=== PATIENT | female | born 1940 | race Caucasian/White ===

== ENCOUNTER 2017-11-01 06:14 | Inpatient (IN) | payer OTHER, BC ==
[2017-11-01] MEDS ORDERED: THROMBIN (BOVINE) 5,000 UNIT VIAL TP ONE (07:25)
[2017-11-01] MEDS ORDERED: HEPARIN NA (PORCINE) 5,000 UNITS/ML 1ML VIAL ONE (07:25)
[2017-11-01] MEDS ORDERED: BENZOIN/ALOE VERA/STORAX/TOLU 58 ML BOTTLE ONE (07:25)
[2017-11-01] MEDS ORDERED: PROPOFOL 20 ML ONE ×6 (07:38→11:52)
[2017-11-01] MEDS ORDERED: SUCCINYLCHOLINE CHLORIDE 200 MG/10 ML VIAL ONE (07:38)
[2017-11-01] MEDS ORDERED: fentaNYL CITRATE 250 MCG/5 ML VIAL ONE (07:38)
[2017-11-01] MEDS ORDERED: MIDAZOLAM HCL 2 MG/2 ML SINGLE DOSE VIAL ONE ×4 (07:39)
[2017-11-01] MEDS ORDERED: SEVOFLURANE 250 ML BTL ONE (07:57)
[2017-11-01] MEDS ORDERED: VANCOMYCIN 1,000 MG VIAL (RESTRICTED TO ID ONLY) ONE ×2 (09:17→09:31)
[2017-11-01] MEDS ORDERED: VANCOMYCIN 1,000 MG VIAL (RESTRICTED TO ID ONLY) IVPB ONE (09:20)
[2017-11-01] MEDS ORDERED: ceFAZolin SODIUM 1 GM VIAL ONE ×2 (09:31→15:21)
[2017-11-01] MEDS ORDERED: LIDOCAINE HCL/PF 2% SDV 5ML VIAL ONE (09:31)
[2017-11-01] MEDS ORDERED: DEXAMETHASONE SOD PHOSPHATE 4 MG/1 ML VIAL ONE ×2 (09:31→11:21)
[2017-11-01] MEDS ORDERED: ONDANSETRON 4 MG/2 ML VIAL ONE ×3 (09:31→14:35)
[2017-11-01] MEDS ORDERED: GLYCOPYRROLATE 0.2 MG/1 ML VIAL ONE ×2 (09:33→09:38)
[2017-11-01] MEDS ORDERED: ePHEDrine SULFATE 50 MG/1 ML AMPULE ONE (09:40)
[2017-11-01] MEDS ORDERED: ceFAZolin SODIUM 1 GM VIAL IVPB ONE (09:40)
[2017-11-01] MEDS ORDERED: TRANEXAMIC ACID 1000 MG/10 ML VIAL ONE (10:02)
[2017-11-01] MEDS ORDERED: FLUMAZENIL 0.5 MG/5 ML VIAL ONE (12:28)
--- NOTE | 2017-11-01 12:33 | PN ---
Progress Note (short form) - Note Progress Note: 77F s/p C3-C4, C4-C5, C5-C6 discectomies; C4, C5 corpectomies; C3, C6 partial corpectomies; C3-C6 anterior cervical decompression and instrumented fusion POD #0. -Admit to ICU x 24 hrs. for airway observation; OK to downgrade to floor 2017 if airway stable. -In case of emergency, remove anterior cervical spine dressing and pull out running suture. -Maintain head of bed >45 degrees. -Pain control: oral meds predominantly; NO CHIEF DISPATCHER SERVICE. -DVT PPx: -Mechanical only: GREG's, SCD's. -Post-op Ancef x 2 doses. -f/u AM labs. -Incentive spirometry. -PT/OT/Rehab, OOB. -WBAT B/L UE & LE. -d/c Rushing catheter in AM; f/u TOV. -Keep dressing clean & dry. -No heavy lifting, bending or twisting. -Puree diet; advance as tolerated. -B/L UE & LE NV checks. -Care per ICU & primary medical hospitalist teams. -Discharge planning: f/u [facility] [place] office 11/11/2017; call for appointment; . Gustavo Velasco MD (Orthopaedic Surgery).
[2017-11-01] MEDS ORDERED: ONDANSETRON 4 MG/2 ML VIAL IVPUSH PRN ×2 (12:34→12:47)
[2017-11-01] MEDS ORDERED: traMADol HCL 50 MG TABLET PO PRN (12:34)
[2017-11-01] MEDS ORDERED: oxyCODONE HCL 5 MG TABLET PO PRN ×2 (12:34)
[2017-11-01] MEDS ORDERED: LACTATED RINGERS SOLUTION 1,000 ML IV SCH ×2 (12:45→13:00)
[2017-11-01] MEDS ORDERED: HYDROmorphone *PCA* 10MG/50ML DISP.SYRIN PCA SCH (13:00)
[2017-11-01] MEDS ORDERED: HYDROmorphone *PCA* 10MG/50ML DISP.SYRIN PCA ONE (13:20)
--- NOTE | 2017-11-01 13:22 | OP ---
Operative Note - Note: Operative Date: 11/01/17 Pre-Operative Diagnosis: Cervical spinal stenosis. Progressive neurological decline. Cervical myelopathy. Cervical radiculopathy Operation: 1. C3-C4, C4-C5, C5-C6 discectomies. 2. C4, C5 corpectomies. 3. C3 , C6 partial corpectomies. 4. C3-C6 anterior cervical decompression and instrumented fusion. 5. Bone autograft. 6. Bone allograft Post-Operative Diagnosis: Same as Pre-op Surgeon: Gustavo Velasco Cra Officer: Demetrio Velasco Anesthesiologist/JUKEBOX ROUTE DRIVER: Deangelo Ibarra Specimens Removed: C3-4, C4-5, C5-6 discs Estimated Blood Loss (mls): 850 Blood Volume Replaced (mls): 375 (Cell Saver) Fluid Volume Replaced (mls): 2,000 Operative Report Dictated: Yes
[2017-11-01] MEDS ORDERED: oxyCODONE HCL 5 MG TABLET ONE (14:35)
[2017-11-01] MEDS ORDERED: ACETAMINOPHEN INJECTION 100 ML IVPB ONE (14:35)
[2017-11-01] MEDS ORDERED: ACETAMINOPHEN 1000 MG/100 ML VIAL (NON FORMULARY) IVPB ONE (15:00)
[2017-11-01] MEDS: ACETAMINOPHEN 325 MG TABLET (FP) PO SCH ×3 (15:20→21:11)
[2017-11-01] MEDS ORDERED: CEFAZOLIN 1 GM in DEXTROSE 5%-WATER - 50 ML IVPB SCH ×2 (16:00→23:30)
--- NOTE | 2017-11-01 19:57 | CONSULT ---
Consultation: REQUESTING PROVIDER: CONSULT REQUEST: We have been asked to medically evaluate this patient for ( intensive care). HISTORY OF PRESENT ILLNESS: 77 y/o F with PMH of htn, hld, dm, cervical spine stenosis and cervical rediculopathy was admitted by spine surgeon for surgery. Patient states that she had tingling and pain in b/l upper limbs and pain in b/ l lower limbs from 3-4 months which was progressing and getting worse. Denies numbness, weakness in b/l upper limb and lower limb. States she has bladder and bowel control. Denies any fall. States she walks without cane and walker. Reports she is feeling better after surgery, pain has improved, Denies shortness of breath, denies. Reports some difficulty in swallowing but is able to swallow meds with apple sauce and is on puree diet. REVIEW OF SYSTEMS: CONSTITUTIONAL: Absent: fever, chills, diaphoresis, generalized weakness, HEENT: Absent: rhinorrhea, nasal congestion, throat pain, throat swelling, CARDIOVASCULAR: Absent: chest pain, syncope, palpitations, irregular heart rate, RESPIRATORY: Absent: cough, shortness of breath, dyspnea with exertion, orthopnea, wheezing, stridor, hemoptysis GASTROINTESTINAL: Absent: abdominal pain, abdominal distension, nausea, vomiting, diarrhea, GENITOURINARY: Absent: dysuria, frequency, urgency, hesitancy, hematuria, flank pain, genital pain MUSCULOSKELETAL: Absent: myalgia, arthralgia, joint swelling, back pain, neck pain Absent: headache, focal weakness or paresthesias, dizziness, , mental status changes, bladder or bowel incontinence PHYSICAL EXAMINATION Vital Signs - 24 hr 11/01/17 11/01/17 11/01/17 07:07 12:42 12:55 Temperature 98.3 F 97.6 F Pulse Rate 57 L 86 81 Respiratory 16 14 18 Rate Blood Pressure 144/75 146/68 146/65 O2 Sat by Pulse 97 96 96 Oximetry (%) 11/01/17 11/01/17 11/01/17 13:10 13:25 13:40 Temperature Pulse Rate 82 82 86 Respiratory 18 17 16 Rate Blood Pressure 141/63 138/61 137/65 O2 Sat by Pulse 96 97 98 Oximetry (%) 11/01/17 11/01/17 11/01/17 13:55 14:10 14:25 Temperature Pulse Rate 81 80 84 Respiratory 15 14 16 Rate Blood Pressure 132/55 136/52 132/68 O2 Sat by Pulse 98 98 99 Oximetry (%) 11/01/17 11/01/17 11/01/17 14:40 14:55 15:10 Temperature Pulse Rate 101 H 88 97 H Respiratory 20 16 20 Rate Blood Pressure 150/77 137/62 128/69 O2 Sat by Pulse 98 98 96 Oximetry (%) 11/01/17 11/01/17 11/01/17 15:25 15:40 15:55 Temperature 97.5 F L Pulse Rate 73 100 H 95 H Respiratory 16 18 18 Rate Blood Pressure 134/63 134/69 128/68 O2 Sat by Pulse 99 97 Oximetry (%) 11/01/17 11/01/17 11/01/17 16:20 16:30 16:38 Temperature 99.2 F Pulse Rate 97 H Respiratory 21 Rate Blood Pressure 151/83 O2 Sat by Pulse 97 97 Oximetry (%) 11/01/17 11/01/17 18:00 18:15 Temperature 99.5 F Pulse Rate 90 Respiratory 16 Rate Blood Pressure 131/66 O2 Sat by Pulse 97 Oximetry (%) GENERAL: Awake, alert, and fully oriented, in no acute distress. HEAD: Normal with no signs of trauma. EYES: Pupils equal, round and reactive to light, EARS, NOSE, THROAT: Ears normal, nares patent, oropharynx clear without exudates. Moist mucous membranes. NECK: dressing present in anterior part of neck, no sokage LUNGS: Breath sounds equal, clear to auscultation bilaterally. No wheezes, and no crackles. No accessory muscle use. HEART: Regular rate and rhythm, normal S1 and S2 ABDOMEN: Soft, nontender, not distended, hypoactive bowel sounds, no guarding, MUSCULOSKELETAL: Normal range of motion at all joints. UPPER EXTREMITIES: 2+ pulses, warm, well-perfused. No cyanosis. No clubbing. No peripheral edema. LOWER EXTREMITIES: warm, well-perfused. No calf tenderness. No peripheral edema. NEUROLOGICAL: Cranial nerves II-XII intact. horse voice. Laboratory Results - last 24 hr 11/01/17 11/01/17 11/01/17 06:37 06:50 07:15 POC Glucometer 130 Blood Type AB POSITIVE AB POSITIVE Antibody Screen Negative 11/01/17 15:28 POC Glucometer 211 Blood Type Antibody Screen Active Medications Generic Name Dose Route Start Last Admin Trade Name Freq PRN Reason Stop Dose Admin Acetaminophen 650 mg 11/01/17 21:00 Tylenol - PO Q6H [facility] Buspirone HCl 15 mg 11/01/17 22:00 Buspar - PO BID [facility] Dexamethasone Sodium Phosphate 10 mg 11/02/17 06:00 Decadron Injection - IVPUSH 11/02/17 06:01 ONCE ONE Lactated Ringer's 1,000 mls @ 125 mls/hr 11/01/17 13:00 11/01/17 15:16 Lactated Ringers Solution IV 125 mls/hr ASDIR NGA Administration Cefazolin Sodium 1 gm/ 50 mls @ 100 mls/hr 11/01/17 23:30 Dextrose IVPB 11/01/17 23:59 Q8H [facility] Metoprolol Succinate 50 mg 11/02/17 10:00 Toprol Xl - PO DAILY [facility] Ondansetron HCl 4 mg 11/01/17 12:34 11/01/17 15:17 Zofran Injection IVPUSH 4 mg Q6H PRN Administration NAUSEA AND/OR VOMITING Ondansetron HCl 4 mg 11/01/17 12:47 Zofran Injection IVPUSH Q6H PRN NAUSEA AND/OR VOMITING Oxycodone HCl 5 mg 11/01/17 12:34 11/01/17 14:46 Roxicodone - PO 5 mg Q4H PRN Administration PAIN LEVEL 6-10 Oxycodone HCl 10 mg 11/01/17 12:34 Roxicodone - PO Q4H PRN PAIN LEVEL 7 - 10 Sertraline HCl 50 mg 11/02/17 10:00 Zoloft - PO DAILY [facility] Tramadol HCl 50 mg 11/01/17 12:34 Ultram - PO Q6H PRN PAIN LEVEL 4 - 6 ASSESSMENT/PLAN: 1) Cervical spinal stenosis. Cervical myelopathy. Cervical radiculopathy 2) HTN 3) HLD 4) DM 5) s/p s/p C3-C4, C4-C5, C5-C6 discectomies. 2. C4, C5 corpectomies. 3. C3, C6 partial corpectomies. 4. C3-C6 anterior cervical decompression and instrumented fusion. 5. Bone autograft. 6. Bone allograft Plan head end elevated 45 degree early ambulation. pain control with trmadol 50mg and oxycodone 10mg on iV fluid LR 125ml/hr OOB with speech language assistant. scd b/l on puree diet Monitor vitals monitor intake and output. continue home med toprol xl 50 daily on antibiotic cefazoline q8h blood glucose monitoring. Novolog sliding scale. Dispo: We will continue to follow the patient. Thank you for this consultative opportunity. Visit type - Emergency Visit Emergency Visit: Yes ED Registration Date: 11/01/17 Care time: The patient presented to the Emergency Department on the above date and was hospitalized for further evaluation of their emergent condition. - New Patient This patient is new to me today: Yes Date on this admission: 11/01/17 - Critical Care Critical Care patient: Yes Total Critical Care Time (in minutes): 45 Critical Care Statement: The care of this patient involved high complexity decision making to prevent further life threatening deterioration of the patient 's condition and/or to evaluate & treat vital organ system(s) failure or risk of failure.
[2017-11-01] MEDS ORDERED: PT OWN MED DRAWER 7, Y5N ONE (21:08)
[2017-11-01] MEDS: busPIRone HCL 5 MG TABLET PO SCH (22:06)
[2017-11-01] MEDS: INSULIN SLIDING SCALE (NOVOLOG) 1 VIAL SQ SCH (22:08)
[2017-11-02] MEDS ORDERED: DEXTROSE 5%-WATER - 50 ML IVPB ONE (00:19)
[2017-11-02] MEDS ORDERED: ceFAZolin SODIUM 1 GM VIAL ONE (00:19)
[2017-11-02] MEDS: ACETAMINOPHEN 325 MG TABLET (FP) PO SCH ×4 (02:53→21:11)
[2017-11-02] MEDS ORDERED: HEMOQUE TEST 1 EACH EACH ONE (05:36)
[2017-11-02] MEDS ORDERED: DEXAMETHASONE SOD PHOSPHATE 10 MG/1 ML VIAL IVPUSH ONE (06:00)
[2017-11-02] MEDS: INSULIN SLIDING SCALE (NOVOLOG) 1 VIAL SQ SCH ×4 (06:17→21:16)
[2017-11-02 06:25] LABS: HEMATOCRIT 38.5 % (32.4-45.2); HEMOGLOBIN 12.8 GM/dL (10.7-15.3); MCHC 33.1 g/dl (32.0-36.0); MEAN CELL VOLUME 93.7 fl (80-96); MEAN PLT VOLUME 9.4 fl (7.5-11.1); PLATELET COUNT 158 K/MM3 (134-434); RBC 4.11 M/mm3 (3.60-5.2); RDW 13.1 % (11.6-15.6); WHITE BLOOD COUNT 11.9 K/mm3 (4.0-10.0)
--- NOTE | 2017-11-02 06:40 | OP ---
DATE OF OPERATION: 11/01/2017 SURGEON: Gustavo Velasco MD CLIENT SERVICE COORDINATOR: Demetrio Velasco MD PREOPERATIVE DIAGNOSES: Vertebral canal stenosis, C3-4, C4-5, C5-6 with sigmoid kyphosis at this level and associated stenosis and cervical spondylogenic myelopathy. POSTOPERATIVE DIAGNOSES: Vertebral canal stenosis, C3-4, C4-5, C5-6 with sigmoid kyphosis at this level and associated stenosis and cervical spondylogenic myelopathy. OPERATION PERFORMED: 1. Anterior cervical approach. 2. Full corpectomy, C4-5. 3. Partial corpectomy, C3 and partial corpectomy, C6. 4. Anterior arthrodesis, C3 through C7. 5. Anterior cage placement, C3 to C7. 6. Anterior plating, C3 to C7; plate was a 3-level Simplicity plate. Screws 12 mm. ANESTHESIA: General. ANTIBIOTICS GIVEN: Kefzol 2 g and vancomycin 1 g preoperative. Decadron given and intraoperative Decadron given as well. Patient correctly identified, brought into the operating room, placed supine on the operating room table. Glidescope intubation utilized. Preoperative neuromonitoring readings revealed changes in the left lower extremity. Positioning of the patient in extension brought about no change. We elected then to continue. Timeout was called. Imaging was available for intraoperative evaluation. The skin was cleansed with Betadine scrub solution and wiped off with alcohol. DuraPrep applied. A window drape applied. Intraoperative x-ray and neuromonitoring utilized. Oblique incision made just above the cricothyroid interval on the right-hand side. The dissection was taken. The platysma was transected. The investing layer of fascia was opened to expose the neck appropriately. The retraction was from medial to lateral. The entire field was exposed nicely. Paterson pins were placed in the body of C3 and the body of C6. A gentle distraction applied, but this was utilized more for up-down retraction. The longus coli was dissected off the vertebral bodies anteriorly. The teeth of the medial and lateral retractors were placed in the body of the muscle and belly itself. Once this had been performed, retraction was achieved. The traction had to be released and then once again reapplied. The reason being that there was activity noted on the appropriate laryngeal nerves as monitored by the ET tube. Retraction was backed off appropriately until this was quiet. An annulectomy was performed using Bovie to cut the annulus. The disk material was scooped out of each level of disk; that would be C3-4, C4-5, and C5-6. The vertebral bodies noted. A longitudinal gutter was cut into each area on the left side and the right-hand side broaching these down to endplate. Copious bleeding was encountered as we cut into the vertebral bodies. Cell Saver was utilized. Ultimately, Cell Saver gave back 250 mL of blood. Approximately 400 mL of blood was spilt. Once the bulk of the bone was removed from C4 and C5, a round-tip, jarred-smooth gael was utilized to trim the endplates flat. That is the lower endplate of C3 and the upper endplate of C6. They were parallel to each other. The tabletop, that is the anterior surface of the vertebral bodies, was flattened as well using the gael. Once this had been achieved, burring enabled complete de-bulking of the bone on the posterior longitudinal ligament. This was then resected using Kerrisons. We removed the entire posterior longitudinal ligament to expose a completely bulging theca from C3 right down to C6. A partial corpectomy of C3 was performed, undercutting to ensure that the deep space was opened as it was performed at C6 as well. FloSeal and Gelfoam were utilized to help control bleeding. Bleeding from the bone bed was copious, from the epidural plexus present but minimal. This was all controlled by the time we placed the cage. The interspace was measured with appropriate stacked osteotomes to give the exact degree of height of the cage. The cage was cut and slightly oversized. This was packed with bone graft from the bone harvested and some allograft putty mixed with this. This was tamped solidly into position, and the distraction device was then removed. The distraction pin holes were filled with bone wax, and a [id number] Simplicity plate applied to the anterior bodies with 12-mm self-tapping screws inserted into bone bed. Following the insertion of these, an x-ray was taken, showing the perfect seating of the implants. The cage was solidly seated. The wounds were thoroughly lavaged and closed as follows: Investing layer of fascia 3-0 Vicryl, subcutaneous 3-0 Vicryl, skin 3-0 Monocryl with Steri- Strips. It must be noted that the locking devices of the screws were utilized to lock the screws in position to prevent any back-out. No complications excepting for the fluctuations of the neuromonitoring motor-evoked potentials. SSEPs remained stable throughout. MD SAWYER Tavares/[id number] MTDD
[2017-11-02 07:39] LABS: BLOOD UREA NITROGEN 14 mg/dL (7-18); CHLORIDE 101 mmol/L (98-107); CO2 28 mmol/L (21-32); CREATININE 0.7 mg/dL (0.55-1.02); GLUCOSE,RANDOM 160 mg/dL (74-106); POTASSIUM 4.4 mmol/L (3.5-5.1); SODIUM 139 mmol/L (136-145)
[2017-11-02 07:40] LABS: ANION GAP 10 (8-16); CALCIUM 8.2 mg/dL (8.5-10.1)
--- NOTE | 2017-11-02 08:12 | PN ---
Progress Note, Physician Chief Complaint: Pt. sitting up in bed. Everything is fine with GA and pain controlled, however she has a piece of a pill stuck in her throat. She is currently trying to clear with water. - Current Medication List Current Medications: Active Medications Acetaminophen (Tylenol -) 650 mg PO Q6H [facility] Last Admin: 11/02/17 02:53 Dose: 650 mg Buspirone HCl (Buspar -) 15 mg PO BID [facility] Last Admin: 11/01/17 22:06 Dose: 15 mg Lactated Ringer's (Lactated Ringers Solution) 1,000 mls @ 125 mls/hr IV ASDIR [facility] Last Admin: 11/01/17 15:16 Dose: 125 mls/hr Insulin Aspart (Novolog Vial Sliding Scale -) 1 vial SQ ACHS [facility]; Protocol Last Admin: 11/02/17 06:17 Dose: 2 units Metoprolol Succinate (Toprol Xl -) 50 mg PO DAILY [facility] Ondansetron HCl (Zofran Injection) 4 mg IVPUSH Q6H PRN PRN Reason: NAUSEA AND/OR VOMITING Last Admin: 11/01/17 15:17 Dose: 4 mg Ondansetron HCl (Zofran Injection) 4 mg IVPUSH Q6H PRN PRN Reason: NAUSEA AND/OR VOMITING Oxycodone HCl (Roxicodone -) 5 mg PO Q4H PRN PRN Reason: PAIN LEVEL 6-10 Last Admin: 11/01/17 14:46 Dose: 5 mg Oxycodone HCl (Roxicodone -) 10 mg PO Q4H PRN PRN Reason: PAIN LEVEL 7 - 10 Sertraline HCl (Zoloft -) 50 mg PO DAILY [facility] Tramadol HCl (Ultram -) 50 mg PO Q6H PRN PRN Reason: PAIN LEVEL 4 - 6 - Objective Vital Signs: Vital Signs Temperature 99.1 F 11/02/17 02:00 Pulse Rate 64 11/02/17 06:00 Respiratory Rate 17 11/02/17 06:00 Blood Pressure 120/50 11/02/17 06:00 O2 Sat by Pulse Oximetry (%) 98 11/01/17 21:00 Constitutional: Yes: Well Nourished, No Distress, Calm Musculoskeletal: Yes: WNL Neurological: Yes: WNL, Alert, Oriented Labs: CBC, BMP 11/02/17 05:30 11/02/17 05:30 Assessment/Plan POD#1 s/p C3-6 corpectomy under GA. Has a pill stuck in her throat. Will be referred to GI if necessary. D/C TOOLING SPECIALIST
[2017-11-02] MEDS: busPIRone HCL 5 MG TABLET PO SCH ×2 (09:32→21:50)
--- NOTE | 2017-11-02 09:49 | PN ---
Physical Exam: SUBJECTIVE: Patient seen and examined in ICU. She denies pain to throat, head, dizziness. States she has some discomfort with swallowing. Has belching, no flatulence or bm OBJECTIVE: Vital Signs Period Temp Pulse Resp BP Sys/Beckwith Pulse Ox Last 24 Hr 97.5 F-99.5 F 64-123 14-21 117-151/47-83 96-99 PE Neuro: alert, awake, cn 2-12intact HEENT: anterior neck dressing cdi Pulm: scattered cackles, otherwise clear CV: s1 s2 tachycardia no mrg Abd: s nt nd + bs Ext: warm, no le edema Laboratory Results - last 24 hr 11/01/17 11/01/17 11/02/17 15:28 22:07 05:30 WBC 11.9 H RBC 4.11 Hgb 12.8 Hct 38.5 MCV 93.7 MCH 31.0 MCHC 33.1 RDW 13.1 Plt Count 158 MPV 9.4 Sodium Potassium Chloride Carbon Dioxide Anion Gap BUN Creatinine Creat Clearance w eGFR POC Glucometer [phone] Random Glucose Calcium 11/02/17 11/02/17 05:30 05:43 WBC RBC Hgb Hct MCV MCH MCHC RDW Plt Count MPV Sodium 139 Potassium 4.4 Chloride 101 Carbon Dioxide 28 Anion Gap 10 BUN 14 Creatinine 0.7 Creat Clearance w eGFR > 60 POC Glucometer [phone] Random Glucose 160 H Calcium 8.2 L Active Medications Generic Name Dose Route Start Last Admin Trade Name Freq PRN Reason Stop Dose Admin Acetaminophen 650 mg 11/01/17 21:00 11/02/17 09:32 Tylenol - PO 650 mg Q6H NGA Administration Buspirone HCl 15 mg 11/01/17 22:00 11/02/17 09:32 Buspar - PO 15 mg BID NGA Administration Lactated Ringer's 1,000 mls @ 125 mls/hr 11/01/17 13:00 11/01/17 15:16 Lactated Ringers Solution IV 125 mls/hr ASDIR NGA Administration Insulin Aspart 1 vial 11/01/17 22:00 11/02/17 06:17 Novolog Vial Sliding Scale - SQ 2 units ACHS NGA Administration Protocol Metoprolol Succinate 50 mg 11/02/17 10:00 11/02/17 09:32 Toprol Xl - PO 50 mg DAILY NGA Administration Ondansetron HCl 4 mg 11/01/17 12:34 11/01/17 15:17 Zofran Injection IVPUSH 4 mg Q6H PRN Administration NAUSEA AND/OR VOMITING Ondansetron HCl 4 mg 11/01/17 12:47 Zofran Injection IVPUSH Q6H PRN NAUSEA AND/OR VOMITING Oxycodone HCl 5 mg 11/01/17 12:34 11/01/17 14:46 Roxicodone - PO 5 mg Q4H PRN Administration PAIN LEVEL 6-10 Oxycodone HCl 10 mg 11/01/17 12:34 Roxicodone - PO Q4H PRN PAIN LEVEL 7 - 10 Sertraline HCl 50 mg 11/02/17 10:00 11/02/17 09:32 Zoloft - PO 50 mg DAILY NGA Administration Tramadol HCl 50 mg 11/01/17 12:34 Ultram - PO Q6H PRN PAIN LEVEL 4 - 6 Assessment: 77 year old female with htn, hld, dm, cervical spine stenosis and cervical rediculopathy was admitted by spine surgeon for surgery. s/p C3-C4, C4- C5, C5-C6 discectomies; C4, C5 corpectomies; C3, C6 partial corpectomies; C3-C6 anterior cervical decompression and instrumented fusion 11/01 Plan: 1. S/p cervical surgery - Appears stable - DC rene - Stop fluids - PT - WBAT - Post op care per surgery - Transfer to floor 2. HTN - Toprol xl 50mg 3. DM II - ISS, BGM ACHS 4. DVt - SCDs Dispo: -Discharge planning: f/u [facility] [place] office 11/11/2017; call for appointment; . Visit type - Emergency Visit Emergency Visit: Yes ED Registration Date: 11/01/17 Care time: The patient presented to the Emergency Department on the above date and was hospitalized for further evaluation of their emergent condition. - New Patient This patient is new to me today: Yes Date on this admission: 11/02/17 - Critical Care Critical Care patient: No
[2017-11-02] MEDS ORDERED: SERTRALINE HCL 50 MG TABLET (FP) PO SCH (10:00)
[2017-11-02 10:45] VITALS: BMI 28.9
--- NOTE | 2017-11-02 12:15 | PN ---
Teaching Attending Note Name of Resident: Gio March ATTENDING PHYSICIAN STATEMENT I saw and evaluated the patient. I reviewed the resident's note and discussed the case with the resident. I agree with the resident's findings and plan as documented. SUBJECTIVE: Patient seen and examined in the ICU. Awake and alert. No CP or SOB. Reported some dificulty with swallowing a pill this AM, but now better. Intake & Output 10/30/17 10/31/17 11/01/17 11/02/17 23:59 23:59 23:59 23:59 Intake Total 3310 1303 Output Total 1400 3500 Balance 1910 -2197 Weight 153 lb Last Vital Signs Temp Pulse Resp BP Pulse Ox 99.4 F 123 H 20 122/47 97 11/02/17 08:00 11/02/17 09:40 11/02/17 09:40 11/02/17 08:00 11/02/17 10:00 Active Medications Acetaminophen (Tylenol -) 650 mg PO Q6H [facility] Last Admin: 11/02/17 09:32 Dose: 650 mg Buspirone HCl (Buspar -) 15 mg PO BID [facility] Last Admin: 11/02/17 09:32 Dose: 15 mg Insulin Aspart (Novolog Vial Sliding Scale -) 1 vial SQ [facility]; Protocol Last Admin: 11/02/17 06:17 Dose: 2 units Metoprolol Succinate (Toprol Xl -) 50 mg PO DAILY [facility] Last Admin: 11/02/17 09:32 Dose: 50 mg Ondansetron HCl (Zofran Injection) 4 mg IVPUSH Q6H PRN PRN Reason: NAUSEA AND/OR VOMITING Last Admin: 11/01/17 15:17 Dose: 4 mg Ondansetron HCl (Zofran Injection) 4 mg IVPUSH Q6H PRN PRN Reason: NAUSEA AND/OR VOMITING Oxycodone HCl (Roxicodone -) 5 mg PO Q4H PRN PRN Reason: PAIN LEVEL 6-10 Last Admin: 11/01/17 14:46 Dose: 5 mg Oxycodone HCl (Roxicodone -) 10 mg PO Q4H PRN PRN Reason: PAIN LEVEL 7 - 10 Sertraline HCl (Zoloft -) 50 mg PO DAILY [facility] Last Admin: 11/02/17 09:32 Dose: 50 mg Tramadol HCl (Ultram -) 50 mg PO Q6H PRN PRN Reason: PAIN LEVEL 4 - 6 GENERAL: Awake, alert, and fully oriented, in no acute distress. HEAD: Normal with no signs of trauma. EYES: Pupils equal, round and reactive to light, EARS, NOSE, THROAT: Ears normal, nares patent, oropharynx clear without exudates. Moist mucous membranes. NECK: dressing present in anterior part of neck, clean LUNGS: Breath sounds equal, clear to auscultation bilaterally. No wheezes, and no crackles. No accessory muscle use. HEART: Regular rate and rhythm, normal S1 and S2 ABDOMEN: Soft, nontender, not distended, hypoactive bowel sounds, no guarding, MUSCULOSKELETAL: Normal range of motion at all joints. UPPER EXTREMITIES: 2+ pulses, warm, well-perfused. No cyanosis. No clubbing. No peripheral edema. LOWER EXTREMITIES: warm, well-perfused. No calf tenderness. No peripheral edema. NEUROLOGICAL: Non-focal Laboratory Results - last 24 hr 11/01/17 11/01/17 11/02/17 15:28 22:07 05:30 WBC 11.9 H RBC 4.11 Hgb 12.8 Hct 38.5 MCV 93.7 MCH 31.0 MCHC 33.1 RDW 13.1 Plt Count 158 MPV 9.4 Sodium Potassium Chloride Carbon Dioxide Anion Gap BUN Creatinine Creat Clearance w eGFR POC Glucometer [phone] Random Glucose Calcium 11/02/17 11/02/17 05:30 05:43 WBC RBC Hgb Hct MCV MCH MCHC RDW Plt Count MPV Sodium 139 Potassium 4.4 Chloride 101 Carbon Dioxide 28 Anion Gap 10 BUN 14 Creatinine 0.7 Creat Clearance w eGFR > 60 POC Glucometer 189.60629 Random Glucose 160 H Calcium 8.2 L ASSESSMENT/PLAN: S/P C3-C4, C4-C5, C5-C6 discectomies; C4, C5 corpectomies; C3, C6 partial corpectomies; C3-C6 anterior cervical decompression and instrumented fusion; Bone autograft; Bone allograft Cervical spinal stenosis. Cervical myelopathy. Cervical radiculopathy HTN HLD DM PLAN: Head end elevated 45 degree Early ambulation. Pain control: Tramadol 50mg and oxycodone 10mg IVF OOB with bilingual office assistant. VTE prophylaxis PO as tolerated Monitor intake and output. Home meds Post op ABX Glycemic control Dr Vanegas Critical care time spent in reviewing chart, evaluating patient and formulating plan - 36 minutes.
--- NOTE | 2017-11-02 13:02 | PN ---
Physical Exam: SUBJECTIVE: Patient seen and examined in the ICU. Patient states her pain is well controlled and that her only complaint is the feeling of a pill stuck in her throat. She has tolerated taking her pills with apple sauce well and has been able to drink water. Discussed with her that inflammation from the surgery can cause discomfort and that it should improve. Denies weakness, numbness, parasthesias OBJECTIVE: Last Vital Signs Temp Pulse Resp BP Pulse Ox 99.4 F 123 H 20 122/47 97 11/02/17 08:00 11/02/17 09:40 11/02/17 09:40 11/02/17 08:00 11/02/17 10:00 GENERAL: The patient is awake, alert, and fully oriented, in no acute distress. HEAD: Normal with no signs of trauma. EYES: PERRL, extraocular movements intact, sclera anicteric, conjunctiva clear. No ptosis. ENT: Ears normal, nares patent, oropharynx clear without exudates, moist mucous membranes. NECK: Trachea midline, full range of motion, supple, bandage covering surgical site on anterior neck is clean and dry. LUNGS: Breath sounds decreased but equal, clear to auscultation bilaterally, no wheezes, no crackles, no accessory muscle use. HEART: Regular rate and rhythm, S1, S2 without murmur, rub or gallop. ABDOMEN: Soft, nontender, nondistended, decreased bowel sounds, no guarding, no rebound, no hepatosplenomegaly, no masses. EXTREMITIES: 2+ pulses, warm, well-perfused, no edema. NEUROLOGICAL: Normal speech, gait not observed. Good strength in UE b/l, in tact sensation b/l PSYCH: Normal mood, normal affect. SKIN: Warm, dry, normal turgor, no rashes or lesions noted Laboratory Results - last 24 hr 11/01/17 11/01/17 11/02/17 15:28 22:07 05:30 WBC 11.9 H RBC 4.11 Hgb 12.8 Hct 38.5 MCV 93.7 MCH 31.0 MCHC 33.1 RDW 13.1 Plt Count 158 MPV 9.4 Sodium Potassium Chloride Carbon Dioxide Anion Gap BUN Creatinine Creat Clearance w eGFR POC Glucometer [phone] Random Glucose Calcium 11/02/17 11/02/17 05:30 05:43 WBC RBC Hgb Hct MCV MCH MCHC RDW Plt Count MPV Sodium 139 Potassium 4.4 Chloride 101 Carbon Dioxide 28 Anion Gap 10 BUN 14 Creatinine 0.7 Creat Clearance w eGFR > 60 POC Glucometer [phone] Random Glucose 160 H Calcium 8.2 L Active Medications Generic Name Dose Route Start Last Admin Trade Name Freq PRN Reason Stop Dose Admin Acetaminophen 650 mg 11/01/17 21:00 11/02/17 09:32 Tylenol - PO 650 mg Q6H NGA Administration Buspirone HCl 15 mg 11/01/17 22:00 11/02/17 09:32 Buspar - PO 15 mg BID NGA Administration Insulin Aspart 1 vial 11/01/17 22:00 11/02/17 06:17 Novolog Vial Sliding Scale - SQ 2 units ACHS NGA Administration Protocol Metoprolol Succinate 50 mg 11/02/17 10:00 11/02/17 09:32 Toprol Xl - PO 50 mg DAILY NGA Administration Ondansetron HCl 4 mg 11/01/17 12:34 11/01/17 15:17 Zofran Injection IVPUSH 4 mg Q6H PRN Administration NAUSEA AND/OR VOMITING Ondansetron HCl 4 mg 11/01/17 12:47 Zofran Injection IVPUSH Q6H PRN NAUSEA AND/OR VOMITING Oxycodone HCl 5 mg 11/01/17 12:34 11/01/17 14:46 Roxicodone - PO 5 mg Q4H PRN Administration PAIN LEVEL 6-10 Oxycodone HCl 10 mg 11/01/17 12:34 Roxicodone - PO Q4H PRN PAIN LEVEL 7 - 10 Sertraline HCl 50 mg 11/02/17 10:00 11/02/17 09:32 Zoloft - PO 50 mg DAILY NGA Administration Tramadol HCl 50 mg 11/01/17 12:34 Ultram - PO Q6H PRN PAIN LEVEL 4 - 6 ASSESSMENT/PLAN: 77 year old female admitted to the ICU for airway monitoring post-op following C3-C4, C4-C5, C5-C6 discectomy, C4, C5 corpectomy, C3-C6 anterior cervical decompression. Neuro No neuro deficits at this time Continue to monitor strength and sensation especially in upper extremities CV Hypertension Toprol 50 mg Daily Respiratory Encouraged patient to use her incentive spirometer to prevent atelectasis DM Sugars are being adequately controlled on an insulin sliding scale Post-op care Keep dressing dry and in tact progress diet as tolerated Pain is adequately controlled with PO meds Tramadol 50 mg Q6 for pain: 4-6 Oxycodone 5 mg Q4 for pain: 6-10 Oxycodone 10 mg Q4 for pain:7-10 Pt is able to protect her airway and does not need ICU monitoring at this time Pt to be transferred to Med/Surg FEN Fluid: No fluids necessary at this time as patient is tolerating puree diet Electrolyte: no electrolyte abnormalities at this time Nutrition: tolerating puree diet, advance diet as tolerated Disposition Pt to be transferred to med/surg as she does not need ICU monitoring at this time. Visit type - Emergency Visit Emergency Visit: Yes ED Registration Date: 11/01/17 Care time: The patient presented to the Emergency Department on the above date and was hospitalized for further evaluation of their emergent condition. - New Patient This patient is new to me today: Yes Date on this admission: 11/02/17 - Critical Care Critical Care patient: Yes Total Critical Care Time (in minutes): 35 Critical Care Statement: The care of this patient involved high complexity decision making to prevent further life threatening deterioration of the patient 's condition and/or to evaluate & treat vital organ system(s) failure or risk of failure.
[2017-11-02] MEDS ORDERED: oxyCODONE HCL 5 MG TABLET PO PRN ×2 (16:08)
[2017-11-02] MEDS ORDERED: ONDANSETRON 4 MG/2 ML VIAL IVPUSH PRN (16:08)
[2017-11-02] MEDS ORDERED: traMADol HCL 50 MG TABLET PO PRN (16:08)
--- NOTE | 2017-11-02 19:29 | PN ---
Progress Note (short form) - Note Progress Note: POD#1 Out of ICU Sitting comfortably in a chair. Voice raspy Swallowing Normal Wound No swelling and no drainage Bandage dry Neuro Fully in tact PLAN D/C home tomorrow See in office 10 days
[2017-11-02] MEDS ORDERED: PT OWN MED DRAWER 7, Y5N ONE (20:54)
[2017-11-03] MEDS: ACETAMINOPHEN 325 MG TABLET (FP) PO SCH ×2 (03:00→09:25)
[2017-11-03 06:06] VITALS: TEMP 98.3
[2017-11-03] MEDS: INSULIN SLIDING SCALE (NOVOLOG) 1 VIAL SQ SCH ×2 (06:17→11:34)
[2017-11-03 07:20] LABS: BASO % 0.3 % (0-2.0); EOS % 0.2 % (0-4.5); HEMATOCRIT 37.1 % (32.4-45.2); HEMOGLOBIN 12.3 GM/dL (10.7-15.3); LYMPH % 22.8 % (8-40); MCH 31.2 pg (25.7-33.7); MCHC 33.2 g/dl (32.0-36.0); MEAN CELL VOLUME 93.9 fl (80-96); MEAN PLT VOLUME 9.5 fl (7.5-11.1); MONO % 9.8 % (3.8-10.2); NEUT % 66.9 % (42.8-82.8); PLATELET COUNT 155 K/MM3 (134-434); RBC 3.95 M/mm3 (3.60-5.2); RDW 12.9 % (11.6-15.6); WHITE BLOOD COUNT 9.7 K/mm3 (4.0-10.0)
[2017-11-03 07:51] LABS: ANION GAP 7 (8-16); BLOOD UREA NITROGEN 12 mg/dL (7-18); CALCIUM 7.7 mg/dL (8.5-10.1); CHLORIDE 104 mmol/L (98-107); CO2 30 mmol/L (21-32); GLUCOSE,RANDOM 120 mg/dL (74-106); SODIUM 141 mmol/L (136-145)
[2017-11-03 07:53] LABS: CREATININE 0.5 mg/dL (0.55-1.02)
[2017-11-03] MEDS ORDERED: PT OWN MED DRAWER 7, Y5N ONE (09:17)
[2017-11-03] MEDS: busPIRone HCL 5 MG TABLET PO SCH (09:25)
--- NOTE | 2017-11-03 09:51 | DS ---
Physical Exam: SUBJECTIVE: Patient seen and examined at the bedside. Minimal pain on her back reported relieved with Tylenol. Does not want narcotics or prescription for narcotics. She is tolerating pureed diet. Encourged small frequen meals and hydration throughout the day. patient aware she has a follow up with Dr. Velasco and has to call him for appointment. OBJECTIVE: Discharge home with surgery follow up Vitals stable, no airway compromise. On room air. Cleared by surgery for discharge Vital Signs Period Temp Pulse Resp BP Sys/Beckwith Pulse Ox Last 24 Hr 98.0 F-98.8 F 64-89 18-20 105-137/54-71 97-98 PHYSICAL EXAM GENERAL: The patient is awake, alert, oriented with a raspy voice HEAD: Normal with no signs of trauma. EYES: PERRL, extraocular movements intact, sclera anicteric, conjunctiva clear. ENT: Ears normal, nares patent, oropharynx clear without exudates, moist mucous membranes. NECK: anterior surgical dressing c/d/i LUNGS: Breath sounds equal, clear to auscultation bilaterally, no wheezes, no crackles, no accessory muscle use. HEART: Regular rate and rhythm, S1, S2 without murmur, rub or gallop. ABDOMEN: Soft, nontender, nondistended, normoactive bowel sounds, no guarding, no rebound, no hepatosplenomegaly, no masses. EXTREMITIES: 2+ pulses, warm, well-perfused, no edema. NEUROLOGICAL: Normal speech, gait not observed. LABS Laboratory Results - last 24 hr 11/02/17 11/02/17 11/03/17 11:27 21:08 05:45 WBC RBC Hgb Hct MCV MCH MCHC RDW Plt Count MPV Absolute Neuts (auto) Neutrophils % Lymphocytes % Monocytes % Eosinophils % Basophils % Nucleated RBC % Sodium Potassium Chloride Carbon Dioxide Anion Gap BUN Creatinine Creat Clearance w eGFR POC Glucometer 204.06204 116 120 Random Glucose Calcium 11/03/17 11/03/17 06:30 06:30 WBC 9.7 RBC 3.95 Hgb 12.3 Hct 37.1 MCV 93.9 MCH 31.2 MCHC 33.2 RDW 12.9 Plt Count 155 MPV 9.5 Absolute Neuts (auto) 6.5 Neutrophils % 66.9 Lymphocytes % 22.8 Monocytes % 9.8 Eosinophils % 0.2 Basophils % 0.3 Nucleated RBC % 0 Sodium 141 Potassium 4.0 Chloride 104 Carbon Dioxide 30 Anion Gap 7 L BUN 12 Creatinine 0.5 L Creat Clearance w eGFR > 60 POC Glucometer Random Glucose 120 H Calcium 7.7 L HOSPITAL COURSE: Date of Admission:11/01/17 Date of Discharge: 11/03/17 Patient is a 77 year old female with a significant past medical history of hypertensin, hld, diabetes cervical spine stenosis and cervical rediculopathy was admitted by spine surgeon for surgery. She is s/p C3-C4, C4-C5, C5-C6 discectomies; C4, C5 corpectomies; C3, C6 partial corpectomies; C3-C6 anterior cervical decompression and instrumented fusion 11/01/17. Surgery/ortho: Surgery POD#2: S/p cervical surgery. Initially in ICU for airway monitoring post op, then transferred to med surg floor. Patient stable and tolerating room air without difficulty. Tolerating soft, pureed diet. Encouraged small frequent meals and hydration. Denies pain, does not want oxycodone script, states Tylenol is helping, has mild tolerable post surgical pain and soreness. Cardiac Hypertension: controlled on Toprol 50mg daily Endocrine Diabetes: BGMs stable, monitor ac/hs. Patient aware acknowledges that she will be following up with Dr. Krista [place]. [place] office 11/11/2017. Patient to call for for appointment. full code Minutes to complete discharge: 60 Discharge Summary Reason For Visit: RADICULOPATHY, CERVICAL REGION Condition: Stable - Instructions Diet, Activity, Other Instructions: Mrs Crowder: You will be discharged home today. Please follow up with Dr. Velasoc within 10 days for dressing changes and post op care. Please call office or return to the ER with any concerns or worsening symptoms. Please call me with any questions that you may have Leatha Rahman SALES DEVELOPMENT MANAGER [phone] [facility] Referrals: Gustavo Velasco MD [Staff Physician] - (see in office in 10 days, please call for an appointment) Disposition: HOME - Home Medications Comprehensive Discharge Medication List: Ambulatory Orders Atorvastatin Ca [Lipitor] 10 mg PO DAILY 10/29/17 Buspirone HCl 15 mg PO BID 10/29/17 Stepan/D3/Mag11/Zinc/Driver Education Road Instructor/Rui/Bor [Caltrate 600+D Plus Tablet] 1 tab PO BID Metoprolol Succinate 50 mg PO DAILY 10/29/17 Repaglinide [Prandin -] 0.5 mg PO TID 10/29/17 Sertaline 50 mg PO DAILY 10/29/17 This patient is new to me today: Yes Date on this admission: 11/03/17 Emergency Visit: No Critical Care patient: No - Discharge Referral Referred to [facility] No
[2017-11-03] MEDS ORDERED: SERTRALINE HCL 50 MG TABLET (FP) PO SCH (10:00)
[2017-11-03 10:19] VITALS: BP 133/71; PULSE 67
--- NOTE | 2017-11-04 16:58 | PATH ---
Surgical Pathology Report Patient Name: LAUREN SCHAEFER [facility]. Rec. #: [id number] /Age/Gender: 1940 (Age: 77) / F Account: [id number] Location: [address] [place] [address]/[facility] Taken: 11/01/2017 Received: 11/01/2017 Reported: 11/04/2017 Physicians: Gustavo Velasco M.D. Specimen(s) Received DISC C3-C6 Clinical History Radiculopathy cervical Final Diagnosis DISC C3-C6, DISCECTOMY: CARTILAGE AND BONE WITH DEGENERATIVE CHANGE. Electronically Signed John Cool M.D. Gross Description Received in formalin labeled "disc C3-C6," is a 3.8 x 3.0 x 0.4 cm aggregate of colón fragments of fibrocartilaginous tissue and possible bone. County Agent sections are submitted in one cassette following decalcification. /11/02/2017 saudi11/02/2017
== END 2017-11-03 13:28 | disposition home or self-care (01) | DRG 29 ==
LOC: JSAMEDAYSX 06:14 → EDSTATUS 14:15 → JICU 16:21 → J6S 11-02 15:51
PROVIDERS: ADMIT Orthopaedic Surgery Orthopaedic Surgery of the Spine; ATTEND Nurse Practitioner Family
PROC: 0RB30ZZ Excision of Cervical Vertebral Disc, Open Approach (ICD-10-PCS; 2017-11-01)
PROC: 0RG20A0 Fusion of 2 or more Cervical Vertebral Joints with Interbody Fusion Device, Anterior Approach, Anterior Column, Open Approach (ICD-10-PCS; principal; 2017-11-01 08:00)
DX: M54.12 Radiculopathy, cervical region (principal); M47.12 Other spondylosis with myelopathy, cervical region; G95.89 Other specified diseases of spinal cord; M48.02 Spinal stenosis, cervical region; M40.299 Other kyphosis, site unspecified; I10 Essential (primary) hypertension; E78.5 Hyperlipidemia, unspecified; E11.9 Type 2 diabetes mellitus without complications; Z79.4 Long term (current) use of insulin
CPT/HCPCS: 36415; 76000-TC-FY; 80048; 82962; 85025; 85027; 86850; 86900; 86901; 88304-TC; 94760; J0131; J1100; J1644

== ENCOUNTER 2017-11-12 09:23 | Inpatient (IN) | payer OTHER, BC ==
--- NOTE | 2017-11-12 09:46 | PDOC ---
History of Present Illness <Nieves Fuller - Last Filed: 11/12/17 10:15> - General History Source: Patient Exam Limitations: No Limitations - History of Present Illness Initial Comments: 11/12/17 09:56 The patient is a 77 year old female with a significant PMH of hypertension and diabetes who presents to the emergency department for preoperative testing. The patient reports that she recently had cervical surgery done. The patients brother reports that the patient had a doctor follow up today by which she had an x-ray done and it was found that a screw had came loose and dislodged . the patient reports that her surgeon sent her to the ED for direct admission for surgery. The patient denies endorses some itching at site secondary to discomfort. The patient denies any other symptoms. She denies any fever, chills , nausea, vomit, diarrhea, constipation or urinary symptoms. She denies any chest pain, shortness of breath, headache and dizziness. The patient denies any other complaints. <Britney West - Last Filed: 11/12/17 14:34> - General Chief Complaint: Revisit,Radiology Variance Stated Complaint: PRE OP TESTING Time Seen by Provider: 11/12/17 09:38 Past History - Past Medical History Anemia: No Asthma: No Cancer: No Cardiac Disorders: No CVA: No COPD: No CHF: No Dementia: No Diabetes: Yes GI Disorders: No Disorders: No HTN: Yes Hypercholesterolemia: Yes Liver Disease: No Thyroid Disease: No - Surgical History Abdominal Surgery: No Appendectomy: No Cardiac Surgery: No Lung Surgery: No Neurologic Surgery: No Orthopedic Surgery: No - Suicide/Smoking/Psychosocial Hx Smoking History: Never smoked Hx Alcohol Use: Yes (wine rarely) Drug/Substance Use Hx: No Substance Use Type: None Hx Substance Use Treatment: No <Nieves Fuller - Last Filed: 11/12/17 10:15> <Britney West - Last Filed: 11/12/17 14:34> - Past Medical History Allergies/Adverse Reactions: Allergies Allergy/AdvReac Type Severity Reaction Status Date / Time No Known Drug Allergies Allergy Verified 11/12/17 09:26 Home Medications: Ambulatory Orders Atorvastatin Ca [Lipitor] 10 mg PO DAILY 10/29/17 Buspirone HCl 15 mg PO BID 10/29/17 Stepan/D3/Mag11/Zinc/Employee Relations Representative/Rui/Bor [Caltrate 600+D Plus Tablet] 1 tab PO BID Metoprolol Succinate 50 mg PO DAILY 10/29/17 Repaglinide [Prandin -] 0.5 mg PO TID 10/29/17 Acetaminophen [Tylenol .Regular Strength -] 650 mg PO Q6H tablet 11/03/17 Sertraline HCl 50 mg PO DAILY 11/12/17 Review of Systems - Review of Systems Able to Perform ROS?: Yes Comments:: 11/12/17 14:34 GENERAL/CONSTITUTIONAL: No fever or chills. No weakness. HEAD, EYES, EARS, NOSE AND THROAT: No change in vision. No ear pain or discharge. No sore throat. CARDIOVASCULAR: No chest pain or shortness of breath. RESPIRATORY: No cough, wheezing, or hemoptysis. GASTROINTESTINAL: No nausea, vomiting, diarrhea or constipation. GENITOURINARY: No dysuria, frequency, or change in urination. MUSCULOSKELETAL: No joint or muscle swelling or pain. No neck or back pain. SKIN: No rash NEUROLOGIC: No headache, vertigo, loss of consciousness, or change in strength/ sensation. ENDOCRINE: No increased thirst. No abnormal weight change. HEMATOLOGIC/LYMPHATIC: No anemia, easy bleeding, or history of blood clots. ALLERGIC/IMMUNOLOGIC: No hives or skin allergy. <Britney West - Last Filed: 11/12/17 14:34> *Physical Exam - Vital Signs Last Vital Signs Temp Pulse Resp BP Pulse Ox 98.9 F 64 16 142/69 96 11/12/17 09:26 11/12/17 09:26 11/12/17 09:26 11/12/17 09:26 11/12/17 09:26 - Physical Exam Comments: GENERAL: Awake, alert, and fully oriented, in no acute distress HEAD: No signs of trauma EYES: PERRLA, EOMI, sclera anicteric, conjunctiva clear ENT: Auricles normal inspection, hearing grossly normal, nares patent, oropharynx clear without exudates. Moist mucosa NECK: Normal ROM, supple, no lymphadenopathy, JVD, or masses. +Surgical dressing to anterior neck, no erythema. Gauze dry and clean. LUNGS: Breath sounds equal, clear to auscultation bilaterally. No wheezes, and no crackles HEART: Regular rate and rhythm, normal S1 and S2, no murmurs, rubs or gallops ABDOMEN: Soft, nontender, normoactive bowel sounds. No guarding, no rebound. No masses EXTREMITIES: Normal range of motion, no edema. No clubbing or cyanosis. No cords, erythema, or tenderness NEUROLOGICAL: Cranial nerves II through XII grossly intact. Normal speech, normal gait. Motor/sensation intact. SKIN: Warm, Dry, normal turgor, no rashes or lesions noted. <Nieves Fuller - Last Filed: 11/12/17 10:15> - Vital Signs Last Vital Signs Temp Pulse Resp BP Pulse Ox 98.9 F 64 16 142/69 96 11/12/17 09:26 11/12/17 09:26 11/12/17 09:26 11/12/17 09:26 11/12/17 09:26 <Britney West - Last Filed: 11/12/17 14:34> ED Treatment Course - LABORATORY CBC & Chemistry Diagram: 11/12/17 09:50 11/12/17 09:50 <Nieves Fuller - Last Filed: 11/12/17 10:15> - LABORATORY CBC & Chemistry Diagram: 11/12/17 12:20 11/12/17 12:20 <Britney West - Last Filed: 11/12/17 14:34> Medical Decision Making - Medical Decision Making 11/12/17 10:[address] Velasco for admission, as an outpatient XR showed slippage of the anterior plate from her cervical fusion. <Nieves Fuller - Last Filed: 11/12/17 10:15> *DC/Admit/Observation/Transfer - Discharge Dispostion Decision to Admit order: Yes <Nieves Fuller - Last Filed: 11/12/17 10:15> - Attestations Scribe Attestion: 11/12/17 09:56 Documentation prepared by Britney West, acting as medical legal investigator for Nieves Fuller MD. <Britney West - Last Filed: 11/12/17 14:34> Diagnosis at time of Disposition: Loosening of hardware in spine - Discharge Dispostion Condition at time of disposition: Stable
[2017-11-12 10:02] LABS: BASO % 1.1 % (0-2.0); EOS % 1.3 % (0-4.5); HEMATOCRIT 38.2 % (32.4-45.2); HEMOGLOBIN 12.9 GM/dL (10.7-15.3); LYMPH % 16.1 % (8-40); MCH 31.4 pg (25.7-33.7); MCHC 33.8 g/dl (32.0-36.0); MEAN PLT VOLUME 8.4 fl (7.5-11.1); MONO % 5.9 % (3.8-10.2); NEUT % 75.6 % (42.8-82.8); PLATELET COUNT 303 K/MM3 (134-434); RBC 4.11 M/mm3 (3.60-5.2); RDW 13.2 % (11.6-15.6); WHITE BLOOD COUNT 8.2 K/mm3 (4.0-10.0)
[2017-11-12 10:24] LABS: INR 1.25 (0.82-1.09); PROTHROMBIN TIME (PATIENT) 14.1 SEC (9.7-13.0)
[2017-11-12 10:33] LABS: ALBUMIN 3.5 g/dl (3.4-5.0); ANION GAP 8 (8-16); BILIRUBIN,TOTAL 0.2 mg/dL (0.2-1.0); BLOOD UREA NITROGEN 17 mg/dL (7-18); CHLORIDE 107 mmol/L (98-107); CO2 25 mmol/L (21-32); CREATININE 0.6 mg/dL (0.55-1.02); GLUCOSE,RANDOM 134 mg/dL (74-106); POTASSIUM 4.2 mmol/L (3.5-5.1); SGOT/AST 15 U/L (15-37); SGPT/ALT 13 U/L (12-78); SODIUM 140 mmol/L (136-145)
[2017-11-12 10:34] LABS: ALK PHOS 57 U/L (45-117)
[2017-11-12 12:31] VITALS: BMI 27.5
[2017-11-12 13:23] LABS: BASO % 0.3 % (0-2.0); EOS % 1.3 % (0-4.5); HEMATOCRIT 37.2 % (32.4-45.2); HEMOGLOBIN 12.5 GM/dL (10.7-15.3); LYMPH % 19.8 % (8-40); MCH 31.5 pg (25.7-33.7); MCHC 33.7 g/dl (32.0-36.0); MEAN CELL VOLUME 93.6 fl (80-96); MEAN PLT VOLUME 8.6 fl (7.5-11.1); MONO % 5.8 % (3.8-10.2); NEUT % 72.8 % (42.8-82.8); PLATELET COUNT 271 K/MM3 (134-434); RBC 3.97 M/mm3 (3.60-5.2); RDW 13.3 % (11.6-15.6); WHITE BLOOD COUNT 6.7 K/mm3 (4.0-10.0)
[2017-11-12 13:35] LABS: INR 1.31 (0.82-1.09); PROTHROMBIN TIME (PATIENT) 14.8 SEC (9.7-13.0)
[2017-11-12 13:47] LABS: ALBUMIN 3.4 g/dl (3.4-5.0); ALK PHOS 52 U/L (45-117); ANION GAP 8 (8-16); BILIRUBIN,TOTAL 0.3 mg/dL (0.2-1.0); BLOOD UREA NITROGEN 16 mg/dL (7-18); CALCIUM 9.2 mg/dL (8.5-10.1); CHLORIDE 104 mmol/L (98-107); CO2 28 mmol/L (21-32); CREATININE 0.5 mg/dL (0.55-1.02); GLUCOSE,RANDOM 117 mg/dL (74-106); POTASSIUM 4.3 mmol/L (3.5-5.1); SGOT/AST 13 U/L (15-37); SGPT/ALT 15 U/L (12-78); SODIUM 140 mmol/L (136-145); TOT PROT 6.6 g/dl (6.4-8.2)
[2017-11-12] MEDS ORDERED: oxyCODONE HCL 5 MG TABLET PO PRN (17:11)
--- NOTE | 2017-11-12 17:14 | HP ---
HISTORY OF PRESENT ILLNESS Patient is a 77 year old female with a significant past medical history of hypertension, hld, diabetes cervical spine stenosis and cervical rediculopathy s /p C3-C4, C4-C5, C5-C6 discectomies; C4, C5 corpectomies; C3, C6 partial corpectomies; C3-C6 anterior cervical decompression and instrumented fusion with Dr Gustavo Velasco. She was sent to the ED today by surgeon as a direct admission for surgery. She denies any fever, chills, nausea, vomit, diarrhea, constipation or urinary symptoms. She denies any chest pain, shortness of breath , headache and dizziness. The patient denies any other complaints and states that she did well at home post surgery and noticed that her voice and swallowing improved. ER course was notable for: (1) direct admission (2) stable vitals (3) pt/inr 14/1.3 Recent travel: n/a Social History: lives at home with family Smoking: n/a Alcohol: n/a Drugs: n/a REVIEW OF SYSTEMS CONSTITUTIONAL: Absent: fever, chills, diaphoresis, generalized weakness, malaise, loss of appetite, weight change HEENT: Absent: rhinorrhea, nasal congestion, throat pain, throat swelling, difficulty swallowing, mouth swelling, ear pain, eye pain, visual changes CARDIOVASCULAR: Absent: chest pain, syncope, palpitations, irregular heart rate, lightheadedness , peripheral edema RESPIRATORY: Absent: cough, shortness of breath, dyspnea with exertion, orthopnea, wheezing, stridor, hemoptysis GASTROINTESTINAL: Absent: abdominal pain, abdominal distension, nausea, vomiting, diarrhea, constipation, melena, hematochezia GENITOURINARY: Absent: dysuria, frequency, urgency, hesitancy, hematuria, flank pain, genital pain MUSCULOSKELETAL: Absent: myalgia, arthralgia, joint swelling, back pain, neck pain SKIN: Absent: rash, itching, pallor HEMATOLOGIC/IMMUNOLOGIC: Absent: easy bleeding, easy bruising, lymphadenopathy, frequent infections ENDOCRINE: Absent: unexplained weight gain, unexplained weight loss, heat intolerance, cold intolerance NEUROLOGIC: Absent: headache, focal weakness or paresthesias, dizziness, unsteady gait, seizure, mental status changes, bladder or bowel incontinence PSYCHIATRIC: Absent: anxiety, depression, suicidal or homicidal ideation, hallucinations. PHYSICAL EXAMINATION: Vital Signs Temperature 98.1 F 11/12/17 14:28 Pulse Rate 74 11/12/17 14:28 Respiratory Rate 18 11/12/17 14:28 Blood Pressure 140/84 11/12/17 14:28 O2 Sat by Pulse Oximetry (%) 96 11/12/17 12:25 GENERAL: Awake, alert, and fully oriented, in no acute distress. HEAD: Normal with no signs of trauma, soft collar in place EYES: Pupils equal, round and reactive to light, extraocular movements intact, sclera anicteric, conjunctiva clear. No lid lag. EARS, NOSE, THROAT: Ears normal, nares patent, oropharynx clear without exudates. Moist mucous membranes. NECK: Normal range of motion, supple without lymphadenopathy, JVD, or masses. LUNGS: Breath sounds equal, clear to auscultation bilaterally. No wheezes, no shortness of breath HEART: Regular rate and rhythm ABDOMEN: Soft, nontender, not distended, normoactive bowel sounds, no guarding, no rebound, no masses. No hepatomegaly or splenomegaly. MUSCULOSKELETAL: No CVA tenderness. UPPER EXTREMITIES: No peripheral edema. LOWER EXTREMITIES: 2+ pulses, warm, well-perfused. No calf tenderness. No peripheral edema. NEUROLOGICAL: Normal speech. Normal gait. PSYCHIATRIC: Cooperative. Good eye contact. Appropriate mood and affect. WBC 6.7 K/mm3 (4.0-10.0) 11/12/17 12:20 RBC 3.97 M/mm3 (3.60-5.2) 11/12/17 12:20 Hgb 12.5 GM/dL (10.7-15.3) 11/12/17 12:20 Hct 37.2 % (32.4-45.2) 11/12/17 12:20 MCV 93.6 fl (80-96) 11/12/17 12:20 MCH 31.5 pg (25.7-33.7) 11/12/17 12:20 MCHC 33.7 g/dl (32.0-36.0) 11/12/17 12:20 RDW 13.3 % (11.6-15.6) 11/12/17 12:20 Plt Count 271 K/MM3 (134-434) 11/12/17 12:20 MPV 8.6 fl (7.5-11.1) 11/12/17 12:20 Absolute Neuts (auto) 4.8 # 11/12/17 12:20 Neutrophils % 72.8 % (42.8-82.8) 11/12/17 12:20 Lymphocytes % 19.8 % (8-40) D 11/12/17 12:20 Monocytes % 5.8 % (3.8-10.2) 11/12/17 12:20 Eosinophils % 1.3 % (0-4.5) 11/12/17 12:20 Basophils % 0.3 % (0-2.0) 11/12/17 12:20 Nucleated RBC % 0 % (0-0) 11/12/17 12:20 Sodium 140 mmol/L (136-145) 11/12/17 12:20 Potassium 4.3 mmol/L (3.5-5.1) 11/12/17 12:20 Chloride 104 mmol/L (98-107) 11/12/17 12:20 Carbon Dioxide 28 mmol/L (21-32) 11/12/17 12:20 Anion Gap 8 (8-16) 11/12/17 12:20 BUN 16 mg/dL (7-18) 11/12/17 12:20 Creatinine 0.5 mg/dL (0.55-1.02) L 11/12/17 12:20 Creat Clearance w eGFR > 60 (>60) 11/12/17 12:20 POC Glucometer 118 UNITS (80-120) 11/12/17 12:10 Random Glucose 117 mg/dL (74-106) H 11/12/17 12:20 Calcium 9.2 mg/dL (8.5-10.1) 11/12/17 12:20 Total Bilirubin 0.3 mg/dL (0.2-1.0) 11/12/17 12:20 AST 13 U/L (15-37) L 11/12/17 12:20 ALT 15 U/L (12-78) 11/12/17 12:20 Alkaline Phosphatase 52 U/L (45-117) 11/12/17 12:20 Total Protein 6.6 g/dl (6.4-8.2) 11/12/17 12:20 Albumin 3.4 g/dl (3.4-5.0) 11/12/17 12:20 Active Medications Generic Name Dose Route Start Last Admin Trade Name Freq PRN Reason Stop Dose Admin Lorazepam 0.5 mg 11/12/17 21:00 Ativan - PO HS PRN sleep Oxycodone HCl 5 mg 11/12/17 17:11 Roxicodone - PO Q6H PRN PAIN LEVEL 7 - 10 ASSESSMENT/PLAN: Patient is a 77 year old female with a significant past medical history of hypertension, hld, diabetes cervical spine stenosis and cervical rediculopathy s /p C3-C4, C4-C5, C5-C6 discectomies; C4, C5 corpectomies; C3, C6 partial corpectomies; C3-C6 anterior cervical decompression and instrumented fusion with Dr Gustavo Velasco. She returns to the ED today as a direct admission for surgery with Dr. Velasco after x-ray showed a possible dislodgment of surgical screw. Surgery/ortho: For surgery tomorrow with Dr. Velasco. NPO at midnight, manage pain with Tylenol as patient is refusing oxycodone or benzos at this time. Will conduct post surgery care per protocol as directed by surgery. Cardiac Hypertension: controlled on Toprol 50mg daily. Endocrine Diabetes: BGMs stable, monitor ac/hs. Prophy SCDs bilateral Incentive spirometer bowel regimen physical therapy full code
[2017-11-12] MEDS ORDERED: ACETAMINOPHEN 325 MG TABLET (FP) PO PRN (18:20)
[2017-11-12] MEDS ORDERED: BISACODYL 10 MG SUPP.RECT RC PRN (18:44)
[2017-11-12] MEDS ORDERED: LORazepam 0.5 MG TABLET PO PRN (21:00)
[2017-11-12] MEDS ORDERED: PT OWN MED DRAWER 7, Y5N ONE ×2 (22:07→22:28)
[2017-11-12] MEDS: CALCIUM 500MG/VIT-D 200 UNITS COMBO TABLET (FP) PO SCH (22:26)
[2017-11-12] MEDS: busPIRone HCL 5 MG TABLET PO SCH (22:26)
[2017-11-13] MEDS ORDERED: LACTATED RINGERS SOLUTION 1,000 ML/1,000 ML INFUS.BAG IV SCH
[2017-11-13] MEDS: REPAGLINIDE 0.5 MG TABLET (FP) PO SCH ×3 (06:11→18:30)
[2017-11-13] MEDS: busPIRone HCL 5 MG TABLET PO SCH ×2 (09:18→21:42)
[2017-11-13] MEDS: CALCIUM 500MG/VIT-D 200 UNITS COMBO TABLET (FP) PO SCH ×2 (09:18→21:42)
[2017-11-13] MEDS ORDERED: BENZOIN/ALOE VERA/STORAX/TOLU 58 ML BOTTLE ONE (09:39)
[2017-11-13] MEDS ORDERED: THROMBIN (BOVINE) 5,000 UNIT VIAL TP ONE ×3 (09:40→13:54)
[2017-11-13] MEDS ORDERED: PROPOFOL 20 ML ONE (09:52)
[2017-11-13] MEDS ORDERED: SUCCINYLCHOLINE CHLORIDE 200 MG/10 ML VIAL ONE (09:52)
[2017-11-13] MEDS ORDERED: fentaNYL CITRATE 250 MCG/5 ML VIAL ONE (09:52)
[2017-11-13] MEDS ORDERED: MIDAZOLAM HCL 2 MG/2 ML SINGLE DOSE VIAL ONE (09:52)
[2017-11-13] MEDS ORDERED: SERTRALINE HCL 50 MG TABLET (FP) PO SCH (10:00)
[2017-11-13] MEDS ORDERED: LIDOCAINE HCL/PF 2% SDV 5ML VIAL ONE (10:01)
[2017-11-13] MEDS ORDERED: VANCOMYCIN 1,000 MG VIAL (RESTRICTED TO ID ONLY) ONE (10:01)
[2017-11-13] MEDS ORDERED: ceFAZolin SODIUM 1 GM VIAL ONE ×2 (11:32→14:44)
[2017-11-13] MEDS ORDERED: VANCOMYCIN 1,000 MG VIAL (RESTRICTED TO ID ONLY) IVPB ONE (11:33)
[2017-11-13] MEDS ORDERED: ONDANSETRON 4 MG/2 ML VIAL ONE (11:53)
[2017-11-13] MEDS ORDERED: DEXAMETHASONE SOD PHOSPHATE 4 MG/1 ML VIAL ONE ×2 (11:53→16:53)
[2017-11-13] MEDS ORDERED: ceFAZolin SODIUM 1 GM VIAL IVPB ONE ×2 (11:55→14:45)
[2017-11-13] MEDS ORDERED: GELATIN, ABSORBABLE 100 EACH SPONGE TP ONE (12:47)
[2017-11-13] MEDS ORDERED: TRANEXAMIC ACID 1000 MG/10 ML VIAL ONE (12:48)
[2017-11-13] MEDS ORDERED: HEPARIN NA (PORCINE) 5,000 UNITS/ML 1ML VIAL ONE (14:57)
[2017-11-13] MEDS ORDERED: PHENYLEPHRINE HCL 10 MG/1 ML SINGLE DOSE VIAL ONE (15:00)
--- NOTE | 2017-11-13 15:32 | OP ---
Operative Note - Note: Operative Date: 11/13/17 Pre-Operative Diagnosis: Intraoperative hemorhage neck Operation: Repair of jugular vein laceration. Findings: Linear tear in wall of proximal internal jugular vein. Post-Operative Diagnosis: Same as Pre-op Surgeon: Campos Winslow Electric Lift Truck Driver: Gustavo Velasco
[2017-11-13] MEDS ORDERED: ONDANSETRON 4 MG/2 ML VIAL IVPUSH PRN ×4 (17:10→18:00)
[2017-11-13] MEDS ORDERED: LACTATED RINGERS SOLUTION 1,000 ML IV SCH ×3 (17:15→17:35)
[2017-11-13] MEDS ORDERED: ACETAMINOPHEN INJECTION 100 ML IVPB ONE (17:15)
--- NOTE | 2017-11-13 17:18 | PN ---
Progress Note (short form) - Note Progress Note: 77F s/p removal of anterior cervical hardware; C6 corpectomy; C3, C7 partial corpectomies; C6-C7 discectomy; C3-C7 anterior cervical instrumented fusion & cage reconstruction with anterior arthrodesis POD #0. -Admit to ICU x 48 hrs. for airway observation; OK to downgrade to floor 2017 if airway stable. -In case of emergency, remove anterior cervical spine dressing and pull out running suture. -Maintain head of bed >45 degrees. -Pain control: oral meds predominantly; NO FURNACE SETTER. -DVT PPx: -Mechanical only: GREG's, SCD's. -Post-op Ancef x 2 doses. -f/u AM labs. -Incentive spirometry. -Maintain [place]-J collar except for dressing/wound checks. -PT/OT/Rehab, OOB. -WBAT B/L UE & LE. -d/c Rushing catheter in AM; f/u TOV. -Keep dressing clean & dry. -No heavy lifting, bending or twisting. -Puree diet; advance as tolerated. -B/L UE & LE NV checks. -Care per ICU & primary medical hospitalist teams. -Tight glycemic control. -Discharge planning: f/u [facility] [place] office Wednesday11/19/2017; call for appointment; . Gustavo Velasco MD (Orthopaedic Surgery).
--- NOTE | 2017-11-13 17:19 | OP ---
Operative Note - Note: Operative Date: 11/13/17 Pre-Operative Diagnosis: C6 burst fracture. Anterior cervical hardware failure Operation: 1. Removal of anterior cervical hardware. 2. C6 corpectomy. 3. C3, C7 partial corpectomies. 4. C6-C7 discectomy. 5. C3-C7 anterior cervical instrumented fusion. 6. Cage reconstruction. 7. Anterior arthrodesis. 8. Primary repair right jugular vein laceration Post-Operative Diagnosis: Same as Pre-op Surgeon: Gustavo Velasco Underground Foreman: Demetrio Velasco Anesthesiologist/ASSOCIATE PROFESSOR OF CHEMISTRY: Vladislav Gonzalez Anesthesia: General Specimens Removed: C6-C7 disc. Anterior cervical hardware Estimated Blood Loss (mls): 150 Fluid Volume Replaced (mls): 2,700 Operative Report Dictated: Yes
[2017-11-13] MEDS ORDERED: oxyCODONE HCL 5 MG TABLET PO PRN ×4 (17:29→18:00)
[2017-11-13] MEDS ORDERED: traMADol HCL 50 MG TABLET PO PRN (17:29)
[2017-11-13] MEDS ORDERED: ACETAMINOPHEN 1000 MG/100 ML VIAL (NON FORMULARY) IVPB SCH (17:30)
[2017-11-13] MEDS ORDERED: BISACODYL 10 MG SUPP.RECT RC PRN (18:00)
[2017-11-13] MEDS ORDERED: ACETAMINOPHEN 1000 MG/100 ML VIAL (NON FORMULARY) IVPB ONE ×2 (18:00)
[2017-11-13] MEDS: LACTATED RINGERS SOLUTION 1,000 ML IV SCH (18:20)
--- NOTE | 2017-11-13 18:49 | PN ---
Physical Exam: SUBJECTIVE: Patient seen and examined in the ICU post op. OBJECTIVE: s/p surgery today ICU for airway monitoring Vital Signs Period Temp Pulse Resp BP Sys/Beckwith Pulse Ox Last 24 Hr 98.1 F-98.2 F 76-82 18-18 136-143/74-91 96-97 GENERAL: Awake, alert, and fully oriented HEAD: Normal with no signs of trauma,anterior neck surgical dressing cdi EYES: Pupils equal, round and reactive to light, extraocular movements intact, sclera anicteric, conjunctiva clear. No lid lag. EARS, NOSE, THROAT: Ears normal, nares patent, oropharynx clear without exudates. Moist mucous membranes. NECK: Normal range of motion, supple without lymphadenopathy, JVD, or masses. LUNGS: Anteior breath sounds diminished. No wheezes, no shortness of breath - on supplemental oxygen support post op HEART: Regular rate and rhythm ABDOMEN: Soft, nontender, not distended, normoactive bowel sounds, no guarding, no rebound, no masses. No hepatomegaly or splenomegaly. MUSCULOSKELETAL: No CVA tenderness. UPPER EXTREMITIES: No peripheral edema. LOWER EXTREMITIES: 2+ pulses, warm, well-perfused. No calf tenderness. No peripheral edema. NEUROLOGICAL: Normal speech. Normal gait. PSYCHIATRIC: Cooperative. Good eye contact. Appropriate mood and affect Laboratory Results - last 24 hr 11/12/17 11/12/17 11/13/17 09:50 22:31 06:56 POC Glucometer 116 104 Blood Type AB POSITIVE Antibody Screen Negative Crossmatch See Detail Active Medications Generic Name Dose Route Start Last Admin Trade Name Freq PRN Reason Stop Dose Admin Acetaminophen 650 mg 11/13/17 18:00 Tylenol - PO Q6H PRN PAIN LEVEL 1-3 Acetaminophen 1,000 mg 11/14/17 01:30 Ofirmev Injection - IVPB 11/14/17 09:31 Q8H NGA Atorvastatin Calcium 10 mg 11/13/17 22:00 Lipitor - PO HS NGA Bisacodyl 10 mg 11/13/17 18:00 Dulcolax Suppository - RC DAILY PRN CONSTIPATION Buspirone HCl 15 mg 11/13/17 22:00 Buspar - PO BID NGA Calcium Carbonate/Cholecalciferol 1 tab 11/13/17 22:00 Os-Stepan 500+D - PO BID NGA Chlorhexidine Gluconate 1 applic 11/13/17 22:00 Hibiclens For Decolonization - TP HS NGA Dexamethasone Sodium Phosphate 10 mg 11/14/17 06:00 Decadron Injection - IVPUSH 11/14/17 06:01 ONCE ONE Lactated Ringer's 1,000 mls @ 83 mls/hr 11/13/17 18:00 Lactated Ringers Solution IV ASDIR NGA Metoprolol Succinate 50 mg 11/14/17 10:00 Toprol Xl - PO DAILY NGA Mupirocin 1 applic 11/13/17 22:00 Bactroban Ointment (For Decolonization) - NS 11/18/17 21:59 BID NGA Ondansetron HCl 4 mg 11/13/17 18:00 Zofran Injection IVPUSH 11/14/17 03:00 Q6H PRN NAUSEA AND/OR VOMITING Ondansetron HCl 4 mg 11/13/17 18:00 Zofran Injection IVPUSH Q6H PRN NAUSEA AND/OR VOMITING Oxycodone HCl 5 mg 11/13/17 18:00 Roxicodone - PO Q4H PRN PAIN 4-6; IF TRAMADOL NOT WORK Oxycodone HCl 10 mg 11/13/17 18:00 Roxicodone - PO Q4H PRN PAIN LEVEL 7 - 10 Repaglinide 0.5 mg 11/14/17 07:00 Prandin - PO TIDAC [facility] Sertraline HCl 50 mg 11/14/17 10:00 Zoloft - PO DAILY NGA Tramadol HCl 50 mg 11/13/17 18:00 Ultram - PO Q6H PRN PAIN LEVEL 4-6 ASSESSMENT/PLAN: Patient is a 77 year old female with a significant past medical history of hypertension, hld, diabetes cervical spine stenosis and cervical rediculopathy s /p C3-C4, C4-C5, C5-C6 discectomies; C4, C5 corpectomies; C3, C6 partial corpectomies; C3-C6 anterior cervical decompression and instrumented fusion with Dr Gustavo Velasco. She returns to the ED for surgery with Dr. Velasco after x-ray showed a possible dislodgment of surgical screw. Surgery/ortho: s/p Removal of anterior cervical hardware, C6 corpectomy, C3, C7 partial corpectomies,C6-C7 discectomy,C3-C7 anterior cervical instrumented fusion,Cage reconstruction,anterior arthrodesis and primary repair right jugular vein laceration. Monitor airway in ICU post op. Cardiac Hypertension: controlled on Toprol 50mg daily. Endocrine Diabetes: BGMs stable, monitor ac/hs. Prophy SCDs bilateral Incentive spirometer bowel regimen physical therapy full code Visit type - Emergency Visit Emergency Visit: Yes ED Registration Date: 11/12/17 Care time: The patient presented to the Emergency Department on the above date and was hospitalized for further evaluation of their emergent condition. - New Patient This patient is new to me today: No - Critical Care Critical Care patient: Yes Total Critical Care Time (in minutes): 35 Critical Care Statement: The care of this patient involved high complexity decision making to prevent further life threatening deterioration of the patient 's condition and/or to evaluate & treat vital organ system(s) failure or risk of failure. - Discharge Referral Referred to [facility] Med P.C.: No
[2017-11-13 20:25] LABS: HEMATOCRIT 35.9 % (32.4-45.2); MCH 31.5 pg (25.7-33.7); MCHC 33.5 g/dl (32.0-36.0); MEAN CELL VOLUME 93.9 fl (80-96); MEAN PLT VOLUME 8.6 fl (7.5-11.1); PLATELET COUNT 254 K/MM3 (134-434); RBC 3.82 M/mm3 (3.60-5.2); RDW 13.2 % (11.6-15.6); WHITE BLOOD COUNT 13.7 K/mm3 (4.0-10.0)
[2017-11-13 20:47] LABS: INR 1.24 (0.82-1.09)
[2017-11-13 20:48] LABS: ANION GAP 10 (8-16); BLOOD UREA NITROGEN 11 mg/dL (7-18); CALCIUM 8.3 mg/dL (8.5-10.1); CHLORIDE 104 mmol/L (98-107); CO2 24 mmol/L (21-32); CREATININE 0.6 mg/dL (0.55-1.02); GLUCOSE,RANDOM 228 mg/dL (74-106); MAGNESIUM 1.7 mg/dL (1.8-2.4); POTASSIUM 4.8 mmol/L (3.5-5.1); SODIUM 138 mmol/L (136-145)
[2017-11-13] MEDS ORDERED: MAGNESIUM 2GM/50ML STERILE WATER IVPB IVPB ONE (21:15)
[2017-11-13] MEDS: CHLORHEXIDINE GLUCONATE 4% CLEANSER FOR DECOLONIZATION TP SCH (21:41)
[2017-11-13] MEDS: MUPIROCIN 2% TOPICAL OINTMENT FOR DECOLONIZATION NS SCH (21:41)
[2017-11-13] MEDS: ATORVASTATIN CA 10 MG TABLET (FP) PO SCH (21:42)
[2017-11-13] MEDS ORDERED: ATORVASTATIN CA 10 MG TABLET (FP) PO SCH (22:00)
[2017-11-14] MEDS: ACETAMINOPHEN 1000 MG/100 ML VIAL (NON FORMULARY) IVPB SCH ×2 (00:43→10:10)
[2017-11-14] MEDS ORDERED: DEXAMETHASONE SOD PHOSPHATE 4 MG/1 ML VIAL IVPUSH ONE (06:00)
[2017-11-14] MEDS ORDERED: DEXAMETHASONE SOD PHOSPHATE 10 MG/1 ML VIAL IVPUSH ONE (06:00)
[2017-11-14 06:20] LABS: HEMOGLOBIN 11.8 GM/dL (10.7-15.3); MCH 31.4 pg (25.7-33.7); MCHC 33.8 g/dl (32.0-36.0); MEAN PLT VOLUME 8.3 fl (7.5-11.1); PLATELET COUNT 278 K/MM3 (134-434); RBC 3.76 M/mm3 (3.60-5.2); WHITE BLOOD COUNT 13.3 K/mm3 (4.0-10.0)
[2017-11-14] MEDS: REPAGLINIDE 0.5 MG TABLET (FP) PO SCH ×3 (06:24→18:34)
[2017-11-14 06:43] LABS: ANION GAP 7 (8-16); BLOOD UREA NITROGEN 9 mg/dL (7-18); CALCIUM 8.6 mg/dL (8.5-10.1); CHLORIDE 102 mmol/L (98-107); CO2 29 mmol/L (21-32); CREATININE 0.5 mg/dL (0.55-1.02); GLUCOSE,RANDOM 184 mg/dL (74-106); POTASSIUM 5.1 mmol/L (3.5-5.1); SODIUM 138 mmol/L (136-145)
--- NOTE | 2017-11-14 09:32 | PN ---
Progress Note (short form) - Note Progress Note: Anesthesia postop note, POD#1, S/P Removal of anterior cervical hardware. 2. C6 corpectomy. 3. C3, C7 partial corpectomies. 4. C6-C7 discectomy. 5. C3-C7 anterior cervical instrumented fusion. 6. Cage reconstruction. 7. Anterior arthrodesis. 8. Primary repair right jugular vein laceration, under GEneral anesthesia, extubated and was transferred to ICU for observation. Pat seen and examined. c/o dry mouth and sore throat. Tolerates liquids po. On IV ofirmev. VSS. C-colar and SCD's in place. No apparent post anesthesia complications. continue with warm liquids po and mouth swab. Signed off. Please contact anesthesiologist with any questions or concerns.
[2017-11-14] MEDS: MUPIROCIN 2% TOPICAL OINTMENT FOR DECOLONIZATION NS SCH ×2 (10:11→21:30)
[2017-11-14] MEDS: busPIRone HCL 5 MG TABLET PO SCH ×2 (10:11→21:21)
[2017-11-14] MEDS: SERTRALINE HCL 50 MG TABLET (FP) PO SCH (10:12)
[2017-11-14] MEDS: CALCIUM 500MG/VIT-D 200 UNITS COMBO TABLET (FP) PO SCH ×2 (10:14→21:20)
[2017-11-14] MEDS: METOPROLOL TARTRATE 50 MG TABLET (FP) PO SCH (13:26)
--- NOTE | 2017-11-14 13:30 | OP ---
DATE OF OPERATION: 11/13/2017 SURGEON: Campos Gage MD CHIEF NURSE EXECUTIVE: Gustavo Velasco MD OPERATION: Intraoperative consultation for bleeding in the neck with suture ligation of bleeding internal jugular vein. OPERATIVE PROCEDURE: I was called emergently to the operating room by Dr. Velasco to assist in controlling bleeding during an anterior cervical laminectomy. During the procedure, bleeding was noted from the base of the incision and was controlled with pressure. On exploration of the wound, the internal jugular vein was identified with a linear tear measuring approximately 8 mm in length. This was controlled with a forceps and clamp and oversewn with a running suture of 5-0 Prolene. After completing the repair, a Valsalva maneuver was performed and there was no evidence of ongoing bleeding. The remainder of the cervical laminectomy then proceeded. CAMPOS GAGE M.D. NATALIYA/[id number]
--- NOTE | 2017-11-14 16:35 | OP ---
DATE OF OPERATION: DATE OF DICTATION: 11/13/2017 SURGEON: Gustavo Velasco MD DESK MONITOR: Demetrio Velasco MD VASCULAR SURGICAL CONSULT, DESK MONITOR: Campos Winslow MD ANESTHESIA: General. PREOPERATIVE DIAGNOSIS: Fracture, C6, with failed hold of cage, and implant failure with migration of plate anteriorly following a C4-5 corpectomy. POSTOPERATIVE DIAGNOSIS: Fracture, C6, with failed hold of cage, and implant failure with migration of plate anteriorly following a C4-5 corpectomy. OPERATION PERFORMED: 1. Complete corpectomy, C6; diskectomy, C6-7; partial corpectomy, C7; partial corpectomy, C3. 2. Revision, Harms cage. 3. Revision, anterior arthrodesis, C3 to C7. 4. Revision of plating, C3 to C7. 5. Incidental tear, jugular vein, right, repaired with 6-0 Prolene and vascular team. ANTIBIOTICS GIVEN: 2 g Kefzol, 1 g vancomycin preoperative, 10 mg Decadron given preoperative, 10 mg Decadron given at the end of the procedure. BLOOD LOSS: Approximately 150 mL. Intraoperative fluoroscopy and x-rays utilized. OPERATION INDICATIONS: The patient underwent an uncomplicated 2-level corpectomy, C4-5, with anterior arthrodesis, cage insertion and plating, C3 to C6. Uncomplicated procedure ended with the C6 vertebral body fracturing, allowing the cage to sink into the entire body of C6, the shortening of height between C3 and C6 forced the cage to dislodge itself anteriorly, injuring the remaining bone bed of C6 as well as the bone bed of C3. Timeout was called. Imaging was available for intraoperative evaluation. DESCRIPTION: Draping, routine Betadine scrub solution, wiped off with alcohol, DuraPrep applied and a window drape applied. Using the original incision extended laterally slightly by 1 cm, the tissues were opened from before, gave easy access between the viscera and vessels to the plane right down to the anterior surface of the plate and vertebral bodies of the cervical spine. Without any difficulty, the plate was removed. The cage appeared to be reasonably solidly inserted, but grasping the cage with a cage villa, with slight degree of pull on this, the entire cage came out without any difficulty. After thorough lavage and washout of the tissues, retraction was achieved with a medial lateral routine cervical spine anterior retraction device system. The difficulty with this was the tissues were hard, indurated, as this was a 2-week old wound, to gain access to the area with these non-pliable tissues proved challenging. In trying to dissect distally and applying traction, unfortunately the dissection caused a small rent in the jugular vein. This was controlled with digital pressure, with Gelfoam and thrombin applied to the area. Dr. Campos Winslow, from vascular surgery team kindly assisted us and rapidly repaired the small rent with 6-0 Prolene. This was sealed, tested with a Valsalva maneuver, no complications. The procedure then commenced with the following: A full remaining corpectomy, because of the destroyed bone of C6, being performed with the Midas Dutch bur, and the disk of C6-C7 was resected using curettes. The end plate of C7 was flattened with a 40-mm jarred-tip bur. The proximal extent of the dissection was evaluated by looking at the C3 vertebral body, which had become damaged by the migration of the screws, once the plate had dislodged itself, this bone had to be resected, leaving a trough divot in the actual bone bed of C3. Once we ascertained this, we elected to use a small narrow diameter Harms cage, 5 mm. This was then measured using the osteotome method to cut this Harms cage to the appropriate length. This was slightly oversized, and the teeth of the cage sunk into the bone bed of C3 and into the bone bed of C7 distally. The cage was filled with osteo fill and bone allograft demineralized bone matrix. Once this had been performed, a Precision Slimplicity plate, plate size 64. Verification of the cage, prior to placing the plate, the cage was noted to be in an excellent position, and rock solid stable. The plate was inserted with rescue screws. The appropriate screw heads were locked with the screw-locking device on the cage. X-rays revealed excellent seating of the plate and cage accordingly. The wounds were thoroughly lavaged. Closure was as follows: fascia with 2-0 Vicryl, subcutaneous and platysma with 3-0 Vicryl, skin with 4-0 Monocryl with Steri-Strips. A 1/8-inch Hemovac drain was inserted. After this drained a short period of time with no drainage at all, it was pulled. OVERALL COMMENT: Extremely difficulty procedure for a number of reasons: 1. Two-week old injury with induration of the soft tissues disallowing pliability and manipulation of tissues for routine surgical intervention. 2. The extent of surgery was massive. A fusion from C3 to C7 in an anterior transverse wound of the neck was no small undertaking. 3. The jugular vein laceration added complexity to this, but was well managed by the vascular team immediately. No other complications. 4. It must be noted, throughout the procedure, the wounds were thoroughly lavaged and antibiotic was given again at the time of seating of the plate. MD SAWYER Tavares/[id number] MTDD
[2017-11-14] MEDS: ACETAMINOPHEN 325 MG TABLET (FP) PO PRN (18:35)
[2017-11-14] MEDS: LACTATED RINGERS SOLUTION 1,000 ML IV SCH (18:44)
--- NOTE | 2017-11-14 19:34 | PN ---
Physical Exam: SUBJECTIVE: Patient seen and examined in the ICU. She reports feeling better today, tolerating room air. Denies shortness of breath. Her voice is improving from yesterday. No pain at the moment. Family at bedside. OBJECTIVE: pod #1 Vital Signs Period Temp Pulse Resp BP Sys/Beckwith Pulse Ox Last 24 Hr 97.9 F-98.6 F 69-88 14-20 106-143/56-82 99-99 GENERAL: Awake, alert, and fully oriented HEAD: Normal with no signs of trauma,anterior neck surgical dressing cdi EYES: Pupils equal, round and reactive to light, extraocular movements intact, sclera anicteric, conjunctiva clear. No lid lag. EARS, NOSE, THROAT: Ears normal, nares patent, oropharynx clear without exudates. Moist mucous membranes. NECK: Normal range of motion, supple without lymphadenopathy, JVD, or masses. LUNGS: Anterior breath sounds diminished. No wheezes, no shortness of breath - tolerating room air. HEART: Regular rate and rhythm ABDOMEN: Soft, nontender, not distended, normoactive bowel sounds, no guarding, no rebound, no masses. No hepatomegaly or splenomegaly. MUSCULOSKELETAL: No CVA tenderness. UPPER EXTREMITIES: No peripheral edema. LOWER EXTREMITIES: 2+ pulses, warm, well-perfused. No calf tenderness. No peripheral edema. NEUROLOGICAL: Normal speech. Normal gait. PSYCHIATRIC: Cooperative. Good eye contact. Appropriate mood and affect Laboratory Results - last 24 hr 11/13/17 11/13/17 11/13/17 20:10 20:10 20:10 WBC 13.7 H RBC 3.82 Hgb 12.0 Hct 35.9 MCV 93.9 MCH 31.5 MCHC 33.5 RDW 13.2 Plt Count 254 MPV 8.6 PT with INR 14.00 H INR 1.24 H Sodium 138 Potassium 4.8 Chloride 104 Carbon Dioxide 24 Anion Gap 10 BUN 11 Creatinine 0.6 Creat Clearance w eGFR > 60 POC Glucometer Random Glucose 228 H Calcium 8.3 L Magnesium 1.7 L 11/14/17 11/14/17 11/14/17 05:30 05:30 05:42 WBC 13.3 H RBC 3.76 Hgb 11.8 Hct 35.0 MCV 93.0 MCH 31.4 MCHC 33.8 RDW 13.0 Plt Count 278 MPV 8.3 PT with INR INR Sodium 138 Potassium 5.1 Chloride 102 Carbon Dioxide 29 Anion Gap 7 L BUN 9 Creatinine 0.5 L Creat Clearance w eGFR > 60 POC Glucometer 199.56337 Random Glucose 184 H Calcium 8.6 Magnesium 11/14/17 11/14/17 12:14 18:21 WBC RBC Hgb Hct MCV MCH MCHC RDW Plt Count MPV PT with INR INR Sodium Potassium Chloride Carbon Dioxide Anion Gap BUN Creatinine Creat Clearance w eGFR POC Glucometer [phone] Random Glucose Calcium Magnesium Active Medications Generic Name Dose Route Start Last Admin Trade Name Freq PRN Reason Stop Dose Admin Acetaminophen 650 mg 11/13/17 18:00 11/14/17 18:35 Tylenol - PO 650 mg Q6H PRN Administration PAIN LEVEL 1-3 Atorvastatin Calcium 10 mg 11/13/17 22:00 11/13/17 21:42 Lipitor - PO 10 mg HS NGA Administration Bisacodyl 10 mg 11/13/17 18:00 Dulcolax Suppository - RC DAILY PRN CONSTIPATION Buspirone HCl 15 mg 11/13/17 22:00 11/14/17 10:11 Buspar - PO 15 mg BID NGA Administration Calcium Carbonate/Cholecalciferol 1 tab 11/13/17 22:00 11/14/17 10:14 Os-Stepan 500+D - PO Not Given BID NGA Chlorhexidine Gluconate 1 applic 11/13/17 22:00 11/13/17 21:41 Hibiclens For Decolonization - TP 1 applic HS NGA Administration Lactated Ringer's 1,000 mls @ 83 mls/hr 11/13/17 18:00 11/14/17 18:44 Lactated Ringers Solution IV 83 mls/hr ASDIR NGA Administration Metoprolol Tartrate 50 mg 11/14/17 12:45 11/14/17 13:26 Lopressor - PO 50 mg DAILY NGA Administration Mupirocin 1 applic 11/13/17 22:00 11/14/17 10:11 Bactroban Ointment (For Decolonization) - NS 11/18/17 21:59 1 applic BID NGA Administration Ondansetron HCl 4 mg 11/13/17 18:00 Zofran Injection IVPUSH Q6H PRN NAUSEA AND/OR VOMITING Oxycodone HCl 5 mg 11/13/17 18:00 Roxicodone - PO Q4H PRN PAIN 4-6; IF TRAMADOL NOT WORK Oxycodone HCl 10 mg 11/13/17 18:00 Roxicodone - PO Q4H PRN PAIN LEVEL 7 - 10 Repaglinide 0.5 mg 11/14/17 07:00 11/14/17 18:34 Prandin - PO 0.5 mg TIDAC NGA Administration Sertraline HCl 50 mg 11/14/17 10:00 11/14/17 10:12 Zoloft - PO 50 mg DAILY NGA Administration Tramadol HCl 50 mg 11/13/17 18:00 Ultram - PO Q6H PRN PAIN LEVEL 4-6 ASSESSMENT/PLAN: Patient is a 77 year old female with a significant past medical history of hypertension, hld, diabetes cervical spine stenosis and cervical rediculopathy s /p C3-C4, C4-C5, C5-C6 discectomies; C4, C5 corpectomies; C3, C6 partial corpectomies; C3-C6 anterior cervical decompression and instrumented fusion with Dr Gustavo Velasco. She is s/p surgery on 11/13/[address] Velasco. Surgery/ortho: s/p Removal of anterior cervical hardware, C6 corpectomy, C3, C7 partial corpectomies,C6-C7 discectomy,C3-C7 anterior cervical instrumented fusion,Cage reconstruction,anterior arthrodesis and primary repair right jugular vein laceration. Patient appears much improved, tolerating room air, no distress. smiling with family room. Is tolerating diet. Continue post surgical care. ICU monitoring for airway s/p surgery. Bowel regimen, pain management. Heme: Leukocytosis: secondary to Decadron. No signs of infection. Cardiac Hypertension: controlled on Toprol 50mg daily. Endocrine Diabetes: BGMs stable, monitor ac/hs. Prophy SCDs bilateral Incentive spirometer bowel regimen physical therapy full code Visit type - Emergency Visit Emergency Visit: Yes ED Registration Date: 11/12/17 Care time: The patient presented to the Emergency Department on the above date and was hospitalized for further evaluation of their emergent condition. - New Patient This patient is new to me today: No - Critical Care Critical Care patient: Yes Total Critical Care Time (in minutes): 40 Critical Care Statement: The care of this patient involved high complexity decision making to prevent further life threatening deterioration of the patient 's condition and/or to evaluate & treat vital organ system(s) failure or risk of failure. - Discharge Referral Referred to [facility] Med P.C.: No
[2017-11-14] MEDS: ATORVASTATIN CA 10 MG TABLET (FP) PO SCH (21:20)
[2017-11-14] MEDS: traMADol HCL 50 MG TABLET PO PRN (21:22)
[2017-11-14] MEDS: CHLORHEXIDINE GLUCONATE 4% CLEANSER FOR DECOLONIZATION TP SCH (21:30)
[2017-11-15] MEDS: ACETAMINOPHEN 325 MG TABLET (FP) PO PRN ×2 (04:38→16:27)
[2017-11-15] MEDS: REPAGLINIDE 0.5 MG TABLET (FP) PO SCH ×3 (06:20→17:26)
[2017-11-15 08:07] LABS: BASO % 0.5 % (0-2.0); EOS % 0.4 % (0-4.5); HEMATOCRIT 33.6 % (32.4-45.2); HEMOGLOBIN 11.2 GM/dL (10.7-15.3); LYMPH % 19.7 % (8-40); MCH 31.3 pg (25.7-33.7); MCHC 33.4 g/dl (32.0-36.0); MEAN CELL VOLUME 93.8 fl (80-96); MONO % 6.3 % (3.8-10.2); NEUT % 73.1 % (42.8-82.8); PLATELET COUNT 242 K/MM3 (134-434); RBC 3.59 M/mm3 (3.60-5.2); RDW 13.1 % (11.6-15.6); WHITE BLOOD COUNT 9.2 K/mm3 (4.0-10.0)
[2017-11-15 08:30] LABS: ANION GAP 6 (8-16); BLOOD UREA NITROGEN 13 mg/dL (7-18); CALCIUM 8.3 mg/dL (8.5-10.1); CHLORIDE 107 mmol/L (98-107); CO2 30 mmol/L (21-32); CREATININE 0.4 mg/dL (0.55-1.02); GLUCOSE,RANDOM 86 mg/dL (74-106); MAGNESIUM 2.1 mg/dL (1.8-2.4); PHOSPHOROUS 2.8 mg/dL (2.5-4.9); POTASSIUM 4.2 mmol/L (3.5-5.1); SODIUM 143 mmol/L (136-145)
[2017-11-15] MEDS ORDERED: PT OWN MED DRAWER 7, Y5N ONE (09:08)
[2017-11-15] MEDS: METOPROLOL TARTRATE 50 MG TABLET (FP) PO SCH (09:14)
[2017-11-15] MEDS: busPIRone HCL 5 MG TABLET PO SCH ×2 (09:14→21:18)
[2017-11-15] MEDS: SERTRALINE HCL 50 MG TABLET (FP) PO SCH (09:14)
[2017-11-15] MEDS: CALCIUM 500MG/VIT-D 200 UNITS COMBO TABLET (FP) PO SCH ×2 (09:14→21:16)
[2017-11-15] MEDS: MUPIROCIN 2% TOPICAL OINTMENT FOR DECOLONIZATION NS SCH ×2 (09:16→21:18)
--- NOTE | 2017-11-15 10:59 | PN ---
Teaching Attending Note Name of Resident: Saqib Barrios ATTENDING PHYSICIAN STATEMENT I saw and evaluated the patient. I reviewed the resident's note and discussed the case with the resident. I agree with the resident's findings and plan as documented. SUBJECTIVE: Patient seen and examined in the ICU. OOB to chair. Pain seems to be adequately controlled. No CP or SOB. Does report some discomfort when she tries to swallow apple sauce. OBJECTIVE: Intake & Output 11/12/17 11/13/17 11/14/17 11/15/17 23:59 23:59 23:59 23:59 Intake Total 3715 2796 681 Output Total 1 1950 4600 400 Balance -1 1765 -1806 281 Weight 141 lb 141 lb Last Vital Signs Temp Pulse Resp BP Pulse Ox 98 F 60 18 145/72 96 11/15/17 09:59 11/15/17 09:59 11/15/17 09:59 11/15/17 09:59 11/15/17 09:00 Active Medications Acetaminophen (Tylenol -) 650 mg PO Q6H PRN PRN Reason: PAIN LEVEL 1-3 Last Admin: 11/15/17 04:38 Dose: 650 mg Atorvastatin Calcium (Lipitor -) 10 mg PO HS [facility] Last Admin: 11/14/17 21:20 Dose: 10 mg Bisacodyl (Dulcolax Suppository -) 10 mg RC DAILY PRN PRN Reason: CONSTIPATION Buspirone HCl (Buspar -) 15 mg PO BID [facility] Last Admin: 11/15/17 09:14 Dose: 15 mg Calcium Carbonate/Cholecalciferol (Os-Stepan 500+D -) 1 tab PO BID [facility] Last Admin: 11/15/17 09:14 Dose: 1 tab Chlorhexidine Gluconate (Hibiclens For Decolonization -) 1 applic TP HS [facility] Last Admin: 11/14/17 21:30 Dose: 1 applic Metoprolol Tartrate (Lopressor -) 50 mg PO DAILY [facility] Last Admin: 11/15/17 09:14 Dose: 50 mg Mupirocin (Bactroban Ointment (For Decolonization) -) 1 applic NS BID [facility] Stop: 11/18/17 21:59 Last Admin: 11/15/17 09:16 Dose: 1 applic Ondansetron HCl (Zofran Injection) 4 mg IVPUSH Q6H PRN PRN Reason: NAUSEA AND/OR VOMITING Oxycodone HCl (Roxicodone -) 5 mg PO Q4H PRN PRN Reason: PAIN 4-6; IF TRAMADOL NOT WORK Oxycodone HCl (Roxicodone -) 10 mg PO Q4H PRN PRN Reason: PAIN LEVEL 7 - 10 Repaglinide (Prandin -) 0.5 mg PO TIDAC [facility] Last Admin: 11/15/17 06:20 Dose: 0.5 mg Sertraline HCl (Zoloft -) 50 mg PO DAILY [facility] Last Admin: 11/15/17 09:14 Dose: 50 mg Tramadol HCl (Ultram -) 50 mg PO Q6H PRN PRN Reason: PAIN LEVEL 4-6 Last Admin: 11/14/17 21:22 Dose: 50 mg GENERAL: Awake, alert, and fully oriented HEAD: Normal with no signs of trauma,anterior neck surgical dressing cdi EYES: Pupils equal, round and reactive to light, extraocular movements intact, sclera anicteric, conjunctiva clear. No lid lag. EARS, NOSE, THROAT: Ears normal, nares patent, oropharynx clear without exudates. Moist mucous membranes. NECK: Right neck bandage intact. (-) Stridor LUNGS: Clear. No wheezes HEART: Regular rate and rhythm ABDOMEN: Soft, nontender, not distended, normoactive bowel sounds, no guarding, no rebound, no masses. No hepatomegaly or splenomegaly. MUSCULOSKELETAL: No CVA tenderness. UPPER EXTREMITIES: No peripheral edema. LOWER EXTREMITIES: 2+ pulses, warm, well-perfused. No calf tenderness. No peripheral edema. NEUROLOGICAL: Non-focal . PSYCHIATRIC: Cooperative. Appropriate mood and affect Laboratory Results - last 24 hr 11/13/17 11/14/17 11/14/17 17:49 12:14 18:21 WBC RBC Hgb Hct MCV MCH MCHC RDW Plt Count MPV Absolute Neuts (auto) Neutrophils % Lymphocytes % Monocytes % Eosinophils % Basophils % Nucleated RBC % Sodium Potassium Chloride Carbon Dioxide Anion Gap BUN Creatinine Creat Clearance w eGFR POC Glucometer 210 232.35077 155.52251 Random Glucose Calcium Phosphorus Magnesium 11/14/17 11/15/17 11/15/17 21:33 06:27 07:55 WBC 9.2 RBC 3.59 L Hgb 11.2 Hct 33.6 MCV 93.8 MCH 31.3 MCHC 33.4 RDW 13.1 Plt Count 242 MPV 8.0 Absolute Neuts (auto) 6.7 Neutrophils % 73.1 Lymphocytes % 19.7 Monocytes % 6.3 Eosinophils % 0.4 Basophils % 0.5 Nucleated RBC % 0 Sodium Potassium Chloride Carbon Dioxide Anion Gap BUN Creatinine Creat Clearance w eGFR POC Glucometer 110.43047 108.49717 Random Glucose Calcium Phosphorus Magnesium 11/15/17 07:55 WBC RBC Hgb Hct MCV MCH MCHC RDW Plt Count MPV Absolute Neuts (auto) Neutrophils % Lymphocytes % Monocytes % Eosinophils % Basophils % Nucleated RBC % Sodium 143 Potassium 4.2 Chloride 107 Carbon Dioxide 30 Anion Gap 6 L BUN 13 Creatinine 0.4 L Creat Clearance w eGFR > 60 POC Glucometer Random Glucose 86 Calcium 8.3 L Phosphorus 2.8 Magnesium 2.1 ASSESSMENT/PLAN: POD #2: S/P removal of anterior cervical hardware, C6 corpectomy, C3, C7 partial corpectomies,C6-C7 discectomy,C3-C7 anterior cervical instrumented fusion, cage reconstruction,anterior arthrodesis, and primary repair right jugular vein laceration. HTN HPL DM Cervical spine stenosis Cervical rediculopathy Pain control Repeat CXR and neck soft tissue O2 as needed Incentive Spirometry Mechanical VTE prophylaxis Glycemic control Monitor off steroids PO as tolerated Aspiration precautions Dr Vanegas Critical care time spent in reviewing chart, evaluating patient and formulating plan - 36 minutes.
[2017-11-15] MEDS ORDERED: BISACODYL 10 MG SUPP.RECT PR PRN (14:15)
--- NOTE | 2017-11-15 16:19 | PN ---
Physical Exam: SUBJECTIVE: Patient seen and examined today in icu. Sitting in chair, c/o constipation. Denies any cp, sob, sabillon, nausea, or vomiting. OBJECTIVE: Vital Signs Period Temp Pulse Resp BP Sys/Beckwith Pulse Ox Last 24 Hr 98 F-98.4 F 58-69 15-20 100-164/48-97 96-99 GENERAL: NAD. HEAD: NC/AT. EYES: EOMI NECK: Bandage on right side neck LUNGS: CTA B/L HEART: RRR ABDOMEN: nd, nt, no hsm. EXTREMITIES: No CCE NEUROLOGICAL: no Neuro deficits PSYCH: Normal mood, normal affect. SKIN: Warm. Laboratory Results - last 24 hr 11/13/17 11/14/17 11/14/17 17:49 18:21 21:33 WBC RBC Hgb Hct MCV MCH MCHC RDW Plt Count MPV Absolute Neuts (auto) Neutrophils % Lymphocytes % Monocytes % Eosinophils % Basophils % Nucleated RBC % Sodium Potassium Chloride Carbon Dioxide Anion Gap BUN Creatinine Creat Clearance w eGFR POC Glucometer 210 155.73229 110.42477 Random Glucose Calcium Phosphorus Magnesium 11/15/17 11/15/17 11/15/17 06:27 07:55 07:55 WBC 9.2 RBC 3.59 L Hgb 11.2 Hct 33.6 MCV 93.8 MCH 31.3 MCHC 33.4 RDW 13.1 Plt Count 242 MPV 8.0 Absolute Neuts (auto) 6.7 Neutrophils % 73.1 Lymphocytes % 19.7 Monocytes % 6.3 Eosinophils % 0.4 Basophils % 0.5 Nucleated RBC % 0 Sodium 143 Potassium 4.2 Chloride 107 Carbon Dioxide 30 Anion Gap 6 L BUN 13 Creatinine 0.4 L Creat Clearance w eGFR > 60 POC Glucometer 108.11287 Random Glucose 86 Calcium 8.3 L Phosphorus 2.8 Magnesium 2.1 Active Medications Generic Name Dose Route Start Last Admin Trade Name Freq PRN Reason Stop Dose Admin Acetaminophen 650 mg 11/13/17 18:00 11/15/17 04:38 Tylenol - PO 650 mg Q6H PRN Administration PAIN LEVEL 1-3 Atorvastatin Calcium 10 mg 11/13/17 22:00 11/14/17 21:20 Lipitor - PO 10 mg HS NGA Administration Bisacodyl 10 mg 11/13/17 18:00 11/15/17 14:23 Dulcolax Suppository - RC 10 mg DAILY PRN Administration CONSTIPATION Bisacodyl 10 mg 11/15/17 14:15 Dulcolax Suppository - [place] PRN PRN CONSTIPATION Buspirone HCl 15 mg 11/13/17 22:00 18 09:14 Buspar - PO 15 mg BID NGA Administration Calcium Carbonate/Cholecalciferol 1 tab 11/13/17 22:00 11/15/17 09:14 Os-Stepan 500+D - PO 1 tab BID NGA Administration Chlorhexidine Gluconate 1 applic 11/13/17 22:00 11/14/17 21:30 Hibiclens For Decolonization - TP 1 applic HS NGA Administration Metoprolol Tartrate 50 mg 11/14/17 12:45 11/15/17 09:14 Lopressor - PO 50 mg DAILY NGA Administration Mupirocin 1 applic 11/13/17 22:00 11/15/17 09:16 Bactroban Ointment (For Decolonization) - NS 11/18/17 21:59 1 applic BID NGA Administration Ondansetron HCl 4 mg 11/13/17 18:00 Zofran Injection IVPUSH Q6H PRN NAUSEA AND/OR VOMITING Oxycodone HCl 5 mg 11/13/17 18:00 Roxicodone - PO Q4H PRN PAIN 4-6; IF TRAMADOL NOT WORK Oxycodone HCl 10 mg 11/13/17 18:00 Roxicodone - PO Q4H PRN PAIN LEVEL 7 - 10 Repaglinide 0.5 mg 11/14/17 07:00 11/15/17 11:35 Prandin - PO 0.5 mg TIDAC NGA Administration Sertraline HCl 50 mg 11/14/17 10:00 11/15/17 09:14 Zoloft - PO 50 mg DAILY NGA Administration Tramadol HCl 50 mg 11/13/17 18:00 11/14/17 21:22 Ultram - PO 50 mg Q6H PRN Administration PAIN LEVEL 4-6 ASSESSMENT/PLAN: POD # 2: 77 y/o F pmh of DM2 and HTN S/P removal of anterior cervical hardware, C6 corpectomy, C3, C7 partial corpectomies,C6-C7 discectomy,C3-C7 anterior cervical instrumented fusion, cage reconstruction,anterior arthrodesis, and primary repair right jugular vein laceration Post Surgery Pain Management: Tramadol 50 MG PO Q6H PRN, Oxycodone 10 MG PO Q4H PRN Pain Level 7-10, Oxycodone 5 MG PO Q4H PRN, Acetominophen 650 MG PO Q6H PRN. Repeat CXR and neck soft tissue Neuro Assesment QShift OOB W/ Assist Oxygen Nasal Canula 4LPM Incentive [place] Cardio- HTN Metoprolol 50 Mg PO Daily Endo-DM Repaglinide 0.5MG PO TID FEN: No Fluids Monitor Electrolytes Full Liquid Diabetic Diet DVT PPX: GREG's Dispo: Continue to monitor in ICU. Visit type - Emergency Visit Emergency Visit: No - New Patient This patient is new to me today: Yes Date on this admission: 11/15/17 - Critical Care Critical Care patient: Yes Total Critical Care Time (in minutes): 35 Critical Care Statement: The care of this patient involved high complexity decision making to prevent further life threatening deterioration of the patient 's condition and/or to evaluate & treat vital organ system(s) failure or risk of failure.
--- NOTE | 2017-11-15 18:02 | PN ---
Physical Exam: SUBJECTIVE: Patient seen and examined at the bedside. Feels well today. her voice is improving which is is happy about. Denies pain or difficulty swallowing. OBJECTIVE: POD#2 Vital Signs Period Temp Pulse Resp BP Sys/Beckwith Pulse Ox Last 24 Hr 98 F-98.4 F 58-71 15-20 100-164/48-83 96-99 GENERAL: Awake, alert, and fully oriented HEAD: Normal with no signs of trauma,anterior neck surgical dressing cdi EYES: Pupils equal, round and reactive to light, extraocular movements intact, sclera anicteric, conjunctiva clear. No lid lag. EARS, NOSE, THROAT: Ears normal, nares patent, oropharynx clear without exudates. Moist mucous membranes. NECK: Normal range of motion, supple without lymphadenopathy, JVD, or masses. LUNGS: Anterior breath sounds diminished. No wheezes, no shortness of breath - tolerating room air. HEART: Regular rate and rhythm ABDOMEN: Soft, nontender, not distended, normoactive bowel sounds, no guarding, no rebound, no masses. No hepatomegaly or splenomegaly. MUSCULOSKELETAL: No CVA tenderness. UPPER EXTREMITIES: No peripheral edema. LOWER EXTREMITIES: 2+ pulses, warm, well-perfused. No calf tenderness. No peripheral edema. NEUROLOGICAL: Normal speech. Normal gait. PSYCHIATRIC: Cooperative. Good eye contact. Appropriate mood and affect Laboratory Results - last 24 hr 11/13/17 11/14/17 11/14/17 17:49 18:21 21:33 WBC RBC Hgb Hct MCV MCH MCHC RDW Plt Count MPV Absolute Neuts (auto) Neutrophils % Lymphocytes % Monocytes % Eosinophils % Basophils % Nucleated RBC % Sodium Potassium Chloride Carbon Dioxide Anion Gap BUN Creatinine Creat Clearance w eGFR POC Glucometer 210 155.15978 110.92115 Random Glucose Calcium Phosphorus Magnesium 11/15/17 11/15/17 11/15/17 06:27 07:55 07:55 WBC 9.2 RBC 3.59 L Hgb 11.2 Hct 33.6 MCV 93.8 MCH 31.3 MCHC 33.4 RDW 13.1 Plt Count 242 MPV 8.0 Absolute Neuts (auto) 6.7 Neutrophils % 73.1 Lymphocytes % 19.7 Monocytes % 6.3 Eosinophils % 0.4 Basophils % 0.5 Nucleated RBC % 0 Sodium 143 Potassium 4.2 Chloride 107 Carbon Dioxide 30 Anion Gap 6 L BUN 13 Creatinine 0.4 L Creat Clearance w eGFR > 60 POC Glucometer [phone] Random Glucose 86 Calcium 8.3 L Phosphorus 2.8 Magnesium 2.1 11/15/17 17:38 WBC RBC Hgb Hct MCV MCH MCHC RDW Plt Count MPV Absolute Neuts (auto) Neutrophils % Lymphocytes % Monocytes % Eosinophils % Basophils % Nucleated RBC % Sodium Potassium Chloride Carbon Dioxide Anion Gap BUN Creatinine Creat Clearance w eGFR POC Glucometer 125.75008 Random Glucose Calcium Phosphorus Magnesium Active Medications Generic Name Dose Route Start Last Admin Trade Name Freq PRN Reason Stop Dose Admin Acetaminophen 650 mg 11/13/17 18:00 11/15/17 16:27 Tylenol - PO 650 mg Q6H PRN Administration PAIN LEVEL 1-3 Atorvastatin Calcium 10 mg 11/13/17 22:00 11/14/17 21:20 Lipitor - PO 10 mg HS NGA Administration Bisacodyl 10 mg 11/13/17 18:00 11/15/17 14:23 Dulcolax Suppository - RC 10 mg DAILY PRN Administration CONSTIPATION Bisacodyl 10 mg 11/15/17 14:15 Dulcolax Suppository - [place] PRN PRN CONSTIPATION Buspirone HCl 15 mg 11/13/17 22:00 11/15/17 09:14 Buspar - PO 15 mg BID NGA Administration Calcium Carbonate/Cholecalciferol 1 tab 11/13/17 22:00 11/15/17 09:14 Os-Stepan 500+D - PO 1 tab BID NGA Administration Chlorhexidine Gluconate 1 applic 11/13/17 22:00 11/14/17 21:30 Hibiclens For Decolonization - TP 1 applic HS NGA Administration Metoprolol Tartrate 50 mg 11/14/17 12:45 11/15/17 09:14 Lopressor - PO 50 mg DAILY NGA Administration Mupirocin 1 applic 11/13/17 22:00 11/15/17 09:16 Bactroban Ointment (For Decolonization) - NS 11/18/17 21:59 1 applic BID NGA Administration Ondansetron HCl 4 mg 11/13/17 18:00 Zofran Injection IVPUSH Q6H PRN NAUSEA AND/OR VOMITING Oxycodone HCl 5 mg 11/13/17 18:00 Roxicodone - PO Q4H PRN PAIN 4-6; IF TRAMADOL NOT WORK Oxycodone HCl 10 mg 11/13/17 18:00 Roxicodone - PO Q4H PRN PAIN LEVEL 7 - 10 Repaglinide 0.5 mg 11/14/17 07:00 11/15/17 17:26 Prandin - PO 0.5 mg TIDAC NGA Administration Sertraline HCl 50 mg 11/14/17 10:00 11/15/17 09:14 Zoloft - PO 50 mg DAILY NGA Administration Tramadol HCl 50 mg 11/13/17 18:00 11/14/17 21:22 Ultram - PO 50 mg Q6H PRN Administration PAIN LEVEL 4-6 ASSESSMENT/PLAN: Patient is a 77 year old female with a significant past medical history of hypertension, hld, diabetes cervical spine stenosis and cervical rediculopathy s /p C3-C4, C4-C5, C5-C6 discectomies; C4, C5 corpectomies; C3, C6 partial corpectomies; C3-C6 anterior cervical decompression and instrumented fusion with Dr Gustavo Velasco. She is s/p surgery on 11/13/[address] Velasco. Surgery/ortho: s/p Removal of anterior cervical hardware, C6 corpectomy, C3, C7 partial corpectomies,C6-C7 discectomy,C3-C7 anterior cervical instrumented fusion,Cage reconstruction,anterior arthrodesis and primary repair right jugular vein laceration. Patient continues to improve, tolerating room air, no distress. pain managed, refusing narcotics, wants only Tylenol. ICU monitoring for airway s/p surgery. Heme: Leukocytosis: resolved Cardiac Hypertension: controlled Endocrine Diabetes: BGMs stable, monitor ac/hs. Prophy SCDs bilateral Incentive spirometer bowel regimen physical therapy full code Visit type - Emergency Visit Emergency Visit: Yes ED Registration Date: 11/12/17 Care time: The patient presented to the Emergency Department on the above date and was hospitalized for further evaluation of their emergent condition. - New Patient This patient is new to me today: No - Critical Care Critical Care patient: Yes Total Critical Care Time (in minutes): 40 - Discharge Referral Referred to [facility] No
--- NOTE | 2017-11-15 20:30 | EKG ---
Test Reason : Blood Pressure : / mmHG Vent. Rate : 065 BPM Atrial Rate : 065 BPM P-R Int : 188 ms QRS Dur : 086 ms QT Int : 394 ms P-R-T Axes : 034 -02 005 degrees QTc Int : 409 ms NORMAL SINUS RHYTHM MODERATE VOLTAGE CRITERIA FOR LVH, MAY BE NORMAL VARIANT BORDERLINE ECG NO PREVIOUS ECGS AVAILABLE Confirmed by MD LIZETTE, HARINI ([id number]) on 11/15/2017 8:30:41 PM Referred By: Confirmed By:HARINI BAUER MD
[2017-11-15] MEDS: ATORVASTATIN CA 10 MG TABLET (FP) PO SCH (21:16)
[2017-11-15] MEDS: traMADol HCL 50 MG TABLET PO PRN (21:16)
[2017-11-15] MEDS: CHLORHEXIDINE GLUCONATE 4% CLEANSER FOR DECOLONIZATION TP SCH (21:17)
--- NOTE | 2017-11-15 21:19 | PN ---
Progress Note (short form) - Note Progress Note: POD#2 In ICU Doing well Voice Normal Wound No swelling or drainage Swallowing at baseline Neuro Fully intact PAIN Incisiona mild pain Assess Osteoporosis Post reconstruction of anterior arthrodesis Doing well Walked in the hallway PLAN Pain MX PT mobilize as tolerated Soft collar For posterior C3 to C7 instrumented fusion to be planned once stable D/C to rehab
[2017-11-16] MEDS: REPAGLINIDE 0.5 MG TABLET (FP) PO SCH ×3 (06:08→16:54)
[2017-11-16 06:29] LABS: BASO % 0.4 % (0-2.0); EOS % 1.1 % (0-4.5); HEMATOCRIT 34.8 % (32.4-45.2); HEMOGLOBIN 11.8 GM/dL (10.7-15.3); LYMPH % 19.9 % (8-40); MCH 31.5 pg (25.7-33.7); MCHC 33.8 g/dl (32.0-36.0); MEAN PLT VOLUME 8.3 fl (7.5-11.1); MONO % 6.9 % (3.8-10.2); NEUT % 71.7 % (42.8-82.8); PLATELET COUNT 246 K/MM3 (134-434); RBC 3.74 M/mm3 (3.60-5.2); WHITE BLOOD COUNT 7.3 K/mm3 (4.0-10.0)
[2017-11-16 06:49] LABS: ALBUMIN 3.1 g/dl (3.4-5.0); ANION GAP 8 (8-16); BLOOD UREA NITROGEN 11 mg/dL (7-18); CALCIUM 8.7 mg/dL (8.5-10.1); CHLORIDE 104 mmol/L (98-107); CO2 28 mmol/L (21-32); CREATININE 0.4 mg/dL (0.55-1.02); GLUCOSE,RANDOM 84 mg/dL (74-106); PHOSPHOROUS 3.2 mg/dL (2.5-4.9); POTASSIUM 4.3 mmol/L (3.5-5.1); SGOT/AST 18 U/L (15-37); SGPT/ALT 12 U/L (12-78); SODIUM 140 mmol/L (136-145)
[2017-11-16 06:51] LABS: ALK PHOS 50 U/L (45-117); BILIRUBIN,TOTAL 0.4 mg/dL (0.2-1.0); TOT PROT 6.1 g/dl (6.4-8.2)
[2017-11-16] MEDS ORDERED: PT OWN MED DRAWER 7, Y5N ONE ×2 (09:39→21:28)
[2017-11-16] MEDS: METOPROLOL TARTRATE 50 MG TABLET (FP) PO SCH ×3 (09:48→21:37)
[2017-11-16] MEDS: MUPIROCIN 2% TOPICAL OINTMENT FOR DECOLONIZATION NS SCH ×2 (09:48→21:38)
[2017-11-16] MEDS: SERTRALINE HCL 50 MG TABLET (FP) PO SCH (09:48)
[2017-11-16] MEDS: busPIRone HCL 5 MG TABLET PO SCH ×2 (09:48→21:37)
[2017-11-16] MEDS: CALCIUM 500MG/VIT-D 200 UNITS COMBO TABLET (FP) PO SCH ×2 (09:48→21:37)
--- NOTE | 2017-11-16 11:20 | EKG ---
Test Reason : Blood Pressure : / mmHG Vent. Rate : 095 BPM Atrial Rate : 095 BPM P-R Int : 180 ms QRS Dur : 090 ms QT Int : 380 ms P-R-T Axes : 049 001 016 degrees QTc Int : 477 ms NORMAL SINUS RHYTHM MINIMAL VOLTAGE CRITERIA FOR LVH, MAY BE NORMAL VARIANT T WAVE ABNORMALITY, CONSIDER ANTERIOR ISCHEMIA PROLONGED QT ABNORMAL ECG Confirmed by MD OPAL, FRANCO ([id number]) on 11/16/2017 11:20:00 AM Referred By: Jesenia CHAMBERS Confirmed By:FRANCO JOSEPH MD
--- NOTE | 2017-11-16 11:27 | PN ---
Teaching Attending Note Name of Resident: Saqib Barrios ATTENDING PHYSICIAN STATEMENT I saw and evaluated the patient. I reviewed the resident's note and discussed the case with the resident. I agree with the resident's findings and plan as documented. SUBJECTIVE: Patient seen and examined in the ICU. OOB to chair. Pain seems to be adequately controlled. Noted brief episode of VT overnight and EKG changes this AM. (+) Troponin noted. No CP or SOB. Still with some discomfort when she tries to swallow apple sauce. OBJECTIVE: Intake & Output 11/13/17 11/14/17 11/15/17 11/16/17 23:59 23:59 23:59 23:59 Intake Total 3715 2796 2021 100 Output Total 1950 4600 400 Balance 1765 -1804 1621 100 Weight 141 lb Last Vital Signs Temp Pulse Resp BP Pulse Ox 98.7 F 74 18 138/78 98 11/16/17 10:00 11/16/17 10:00 11/16/17 10:00 11/16/17 10:00 11/16/17 09:00 Active Medications Acetaminophen (Tylenol -) 650 mg PO Q6H PRN PRN Reason: PAIN LEVEL 1-3 Last Admin: 11/15/17 16:27 Dose: 650 mg Atorvastatin Calcium (Lipitor -) 10 mg PO [facility] Last Admin: 11/15/17 21:16 Dose: 10 mg Bisacodyl (Dulcolax Suppository -) 10 mg RC DAILY PRN PRN Reason: CONSTIPATION Last Admin: 11/15/17 14:23 Dose: 10 mg Bisacodyl (Dulcolax Suppository -) 10 mg [place] PRN PRN PRN Reason: CONSTIPATION Buspirone HCl (Buspar -) 15 mg PO BID [facility] Last Admin: 11/16/17 09:48 Dose: 15 mg Calcium Carbonate/Cholecalciferol (Os-Stepan 500+D -) 1 tab PO BID [facility] Last Admin: 11/16/17 09:48 Dose: 1 tab Chlorhexidine Gluconate (Hibiclens For Decolonization -) 1 applic TP [facility] Last Admin: 11/15/17 21:17 Dose: 1 applic Metoprolol Tartrate (Lopressor -) 50 mg PO BID [facility] Mupirocin (Bactroban Ointment (For Decolonization) -) 1 applic NS BID [facility] Stop: 11/18/17 21:59 Last Admin: 11/16/17 09:48 Dose: 1 applic Ondansetron HCl (Zofran Injection) 4 mg IVPUSH Q6H PRN PRN Reason: NAUSEA AND/OR VOMITING Oxycodone HCl (Roxicodone -) 5 mg PO Q4H PRN PRN Reason: PAIN 4-6; IF TRAMADOL NOT WORK Oxycodone HCl (Roxicodone -) 10 mg PO Q4H PRN PRN Reason: PAIN LEVEL 7 - 10 Repaglinide (Prandin -) 0.5 mg PO TIDAC [facility] Last Admin: 11/16/17 06:08 Dose: 0.5 mg Sertraline HCl (Zoloft -) 50 mg PO DAILY [facility] Last Admin: 11/16/17 09:48 Dose: 50 mg Tramadol HCl (Ultram -) 50 mg PO Q6H PRN PRN Reason: PAIN LEVEL 4-6 Last Admin: 11/15/17 21:16 Dose: 50 mg GENERAL: Awake, alert, and fully oriented HEAD: Normal with no signs of trauma,anterior neck surgical dressing cdi EYES: Pupils equal, round and reactive to light, extraocular movements intact, sclera anicteric, conjunctiva clear. No lid lag. EARS, NOSE, THROAT: Ears normal, nares patent, oropharynx clear without exudates. Moist mucous membranes. NECK: Right neck bandage intact. (-) Stridor LUNGS: Clear. No wheezes HEART: Regular rate and rhythm ABDOMEN: Soft, nontender, not distended, normoactive bowel sounds, no guarding, no rebound, no masses. No hepatomegaly or splenomegaly. MUSCULOSKELETAL: No CVA tenderness. UPPER EXTREMITIES: No peripheral edema. LOWER EXTREMITIES: 2+ pulses, warm, well-perfused. No calf tenderness. No peripheral edema. NEUROLOGICAL: Non-focal . PSYCHIATRIC: Cooperative. Appropriate mood and affect Laboratory Results - last 24 hr 11/12/17 11/15/17 11/16/17 09:50 17:38 05:30 WBC 7.3 RBC 3.74 Hgb 11.8 Hct 34.8 MCV 93.0 MCH 31.5 MCHC 33.8 RDW 13.0 Plt Count 246 MPV 8.3 Absolute Neuts (auto) 5.2 Neutrophils % 71.7 Lymphocytes % 19.9 Monocytes % 6.9 Eosinophils % 1.1 D Basophils % 0.4 Nucleated RBC % 0 Sodium Potassium Chloride Carbon Dioxide Anion Gap BUN Creatinine Creat Clearance w eGFR POC Glucometer 125.97659 Random Glucose Calcium Phosphorus Magnesium Total Bilirubin AST ALT Alkaline Phosphatase Troponin I Total Protein Albumin Crossmatch See Detail 11/16/17 11/16/17 05:30 05:30 WBC RBC Hgb Hct MCV MCH MCHC RDW Plt Count MPV Absolute Neuts (auto) Neutrophils % Lymphocytes % Monocytes % Eosinophils % Basophils % Nucleated RBC % Sodium 140 Potassium 4.3 Chloride 104 Carbon Dioxide 28 Anion Gap 8 BUN 11 Creatinine 0.4 L Creat Clearance w eGFR > 60 POC Glucometer Random Glucose 84 Calcium 8.7 Phosphorus 3.2 Magnesium 2.0 Total Bilirubin 0.4 AST 18 ALT 12 Alkaline Phosphatase 50 Troponin I 2.20 H* Total Protein 6.1 L Albumin 3.1 L Crossmatch ASSESSMENT/PLAN: POD #3: S/P removal of anterior cervical hardware, C6 corpectomy, C3, C7 partial corpectomies,C6-C7 discectomy,C3-C7 anterior cervical instrumented fusion, cage reconstruction,anterior arthrodesis, and primary repair right jugular vein laceration. HTN HPL DM Cervical spine stenosis Cervical rediculopathy Cardiology consult ECHO Need to clear AC and antiplatelet with surgery Pain control O2 as needed Incentive Spirometry Mechanical VTE prophylaxis Glycemic control PO as tolerated Aspiration precautions ICU monitoring Dr Vanegas Critical care time spent in reviewing chart, evaluating patient and formulating plan - 36 minutes.
[2017-11-16] MEDS: ACETAMINOPHEN 325 MG TABLET (FP) PO PRN (12:12)
--- NOTE | 2017-11-16 12:19 | CON.CARD ---
Consult Consult Specialty:: cardiology Reason for Consultation:: EKG changes; +TNI - History of Present Illness Chief Complaint: A&Oxz3; no chest pain or dyspnea; History of Present Illness: The patient is a 77 year old white female with a significant PMH of hypertension and diabetes who presents to the emergency department for preoperative testing. The patient reports that she recently had cervical surgery done. The patients brother reports that the patient had a doctor follow up today by which she had an x-ray done and it was found that a screw had came loose and dislodged . the patient reports that her surgeon sent her to the ED for direct admission for surgery. The patient denies endorses some itching at site secondary to discomfort. The patient denies any other symptoms. She denies any fever, chills, nausea, vomit, diarrhea, constipation or urinary symptoms. She denies any chest pain, shortness of breath, headache and dizziness. The patient denies any other complaints. Pt has now been found to have EKG changes and TNI elevation, and cardiology evaluation was called. 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 Cardio/Vascular: Yes: HTN Reproductive: Yes: Postmenopausal ...: No Psych: Yes: Anxiety Endocrine: Yes: Diabetes Mellitus - Past Surgical History Additional Surgical History: cervical spine; jugular vein (this admission) - Alcohol/Substance Use Hx Alcohol Use: Yes (wine rarely) - Smoking History Smoking history: Never smoked - Social History Usual Living Arrangement: Other Home Medications - Allergies Allergies/Adverse Reactions: Allergies Allergy/AdvReac Type Severity Reaction Status Date / Time No Known Drug Allergies Allergy Verified 11/12/17 09:26 - Home Medications Home Medications: Ambulatory Orders Atorvastatin Ca [Lipitor] 10 mg PO DAILY 10/29/17 Buspirone HCl 15 mg PO BID 10/29/17 Stepan/D3/Mag11/Zinc/Plastics Scientist/Rui/Bor [Caltrate 600+D Plus Tablet] 1 tab PO BID Metoprolol Succinate 50 mg PO DAILY 10/29/17 Repaglinide [Prandin -] 0.5 mg PO TID 10/29/17 Acetaminophen [Tylenol .Regular Strength -] 650 mg PO Q6H tablet 11/03/17 Sertraline HCl 50 mg PO DAILY 11/12/17 Family Disease History - Family Disease History Family History: Denies Review of Systems - Review of Systems Constitutional: reports: No Symptoms Eyes: reports: No Symptoms HENT: reports: Difficult Swallowing Neck: reports: Decreased ROM, Pain on Movement, Other Cardiovascular: reports: No Symptoms Respiratory: reports: No Symptoms Gastrointestinal: reports: No Symptoms Genitourinary: reports: No Symptoms Musculoskeletal: reports: Joint Pain, Muscle Pain, Muscle Weakness Integumentary: reports: Wound Neurological: reports: Weakness Endocrine: reports: No Symptoms Hematology/Lymphatic: reports: No Symptoms Psychiatric: reports: Anxiety - Risk Factors Known Risk Factors: Yes: Age, Hypertension Vital Signs: Vital Signs Temperature 98.7 F 11/16/17 10:00 Pulse Rate 76 11/16/17 12:00 Respiratory Rate 18 11/16/17 12:00 Blood Pressure 137/78 11/16/17 12:00 O2 Sat by Pulse Oximetry (%) 98 11/16/17 09:00 Constitutional: Yes: Anxious Eyes: Yes: WNL HENT: Yes: WNL Neck: Yes: Decreased ROM, Other Respiratory: Yes: WNL Gastrointestinal: Yes: Normal Bowel Sounds Renal/: No: Anuria Cardiovascular: Yes: Regular Rate and Rhythm JVD: No Carotid Bruit: No PMI: Non-Displaced Heart Sounds: Yes: S1, S2 Murmur: Yes: Systolic Murmur, Grade 1 Extremities: Yes: WNL Edema: No Peripheral Pulses WNL: Yes Neurological: Yes: WNL Psychiatric: Yes: WNL - Other Data Labs, Other Data: CBC, BMP 11/16/17 05:30 11/16/17 05:30 INR, PTT INR 1.24 (0.82-1.09) H 11/13/17 20:10 Troponin, BNP 11/16/17 05:30 Troponin I 2.20 H* Troponin, BNP 11/16/17 05:30 Troponin I 2.20 H* Problem List - Problems (1) Diabetes Code(s): E11.9 - TYPE 2 DIABETES MELLITUS WITHOUT COMPLICATIONS (2) HTN (hypertension) Code(s): I10 - ESSENTIAL (PRIMARY) HYPERTENSION (3) Loosening of hardware in spine Code(s): T84.498A - [facility] COMPL OF INTERNAL ORTH DEVICES, IMPLNT AND GRAFTS, INIT (4) H/O cervical spine surgery Code(s): Z98.890 - OTHER SPECIFIED POSTPROCEDURAL STATES (5) Elevated troponin Code(s): R74.8 - ABNORMAL LEVELS OF OTHER SERUM ENZYMES (6) Acute electrocardiogram changes Assessment/Plan: initial EKG essentially WNL except for possible LVH; subsequent EKG shows mild ST depression and significant T wave inversion V2-4. Cannot r/o NSTEMI (elevated TNI, EKG changes). Pt presently has no chest pain or dyspnea. Started ASA, IV heparin. Statin; f/u lipid profile. ECHO for LVEF, wall motion. Evaluate coronary arteries (stress MIBI) when stable. Code(s): R94.31 - ABNORMAL ELECTROCARDIOGRAM [ECG] [EKG]
[2017-11-16 12:52] LABS: CK-MB 2.91 ng/ml (0.5-3.6)
[2017-11-16] MEDS ORDERED: ASPIRIN 325 MG TABLET PO SCH (13:15)
--- NOTE | 2017-11-16 14:05 | PN ---
Physical Exam: SUBJECTIVE: Patient seen and examined today in icu. Sitting in chair c/o moderate difficulty swallowing. Denies cp. sabillon, sob, nausea, or vomiting. Troponin 1 today- 2.20. OBJECTIVE: Vital Signs Period Temp Pulse Resp BP Sys/Beckwith Pulse Ox Last 24 Hr 97.6 F-98.7 F 62-92 18-20 111-167/66-83 96-98 GENERAL: AAOx3. HEAD: Normal with no signs of trauma. EYES: EOMI ENT WNL. NECK: Cervical collar on. LUNGS: CTA B/L HEART: RRR. ABDOMEN: No HSM,NT, ND EXTREMITIES: No CCE. NEUROLOGICAL: no Neuro Deficits PSYCH: Normal mood, normal affect. SKIN: Warm. Laboratory Results - last 24 hr 11/12/17 11/15/17 11/16/17 09:50 17:38 05:30 WBC 7.3 RBC 3.74 Hgb 11.8 Hct 34.8 MCV 93.0 MCH 31.5 MCHC 33.8 RDW 13.0 Plt Count 246 MPV 8.3 Absolute Neuts (auto) 5.2 Neutrophils % 71.7 Lymphocytes % 19.9 Monocytes % 6.9 Eosinophils % 1.1 D Basophils % 0.4 Nucleated RBC % 0 Sodium Potassium Chloride Carbon Dioxide Anion Gap BUN Creatinine Creat Clearance w eGFR POC Glucometer [phone] Random Glucose Calcium Phosphorus Magnesium Total Bilirubin AST ALT Alkaline Phosphatase Creatine Kinase CK-MB (CK-2) Troponin I Total Protein Albumin TSH Free T4 Crossmatch See Detail 11/16/17 11/16/17 11/16/17 05:30 05:30 12:25 WBC RBC Hgb Hct MCV MCH MCHC RDW Plt Count MPV Absolute Neuts (auto) Neutrophils % Lymphocytes % Monocytes % Eosinophils % Basophils % Nucleated RBC % Sodium 140 Potassium 4.3 Chloride 104 Carbon Dioxide 28 Anion Gap 8 BUN 11 Creatinine 0.4 L Creat Clearance w eGFR > 60 POC Glucometer Random Glucose 84 Calcium 8.7 Phosphorus 3.2 Magnesium 2.0 Total Bilirubin 0.4 AST 18 ALT 12 Alkaline Phosphatase 50 Creatine Kinase 35 CK-MB (CK-2) 2.91 Troponin I 2.20 H* Total Protein 6.1 L Albumin 3.1 L TSH Cancelled Free T4 Cancelled Crossmatch Active Medications Generic Name Dose Route Start Last Admin Trade Name Freq PRN Reason Stop Dose Admin Acetaminophen 650 mg 11/13/17 18:00 11/16/17 12:12 Tylenol - PO 650 mg Q6H PRN Administration PAIN LEVEL 1-3 Aspirin 325 mg 11/16/17 13:15 11/16/17 13:34 Asa - PO 325 mg DAILY GNA Administration Atorvastatin Calcium 10 mg 11/13/17 22:00 11/15/17 21:16 Lipitor - PO 10 mg HS NGA Administration Bisacodyl 10 mg 11/13/17 18:00 11/15/17 14:23 Dulcolax Suppository - RC 10 mg DAILY PRN Administration CONSTIPATION Bisacodyl 10 mg 11/15/17 14:15 Dulcolax Suppository - IN PRN PRN CONSTIPATION Buspirone HCl 15 mg 11/13/17 22:00 11/16/17 09:48 Buspar - PO 15 mg BID NGA Administration Calcium Carbonate/Cholecalciferol 1 tab 11/13/17 22:00 11/16/17 09:48 Os-Stepan 500+D - PO 1 tab BID NGA Administration Chlorhexidine Gluconate 1 applic 11/13/17 22:00 11/15/17 21:17 Hibiclens For Decolonization - TP 1 applic HS NGA Administration Metoprolol Tartrate 50 mg 11/16/17 11:30 Lopressor - PO BID NGA Mupirocin 1 applic 11/13/17 22:00 11/16/17 09:48 Bactroban Ointment (For Decolonization) - NS 11/18/17 21:59 1 applic BID NGA Administration Oxycodone HCl 5 mg 11/13/17 18:00 Roxicodone - PO Q4H PRN PAIN 4-6; IF TRAMADOL NOT WORK Oxycodone HCl 10 mg 11/13/17 18:00 Roxicodone - PO Q4H PRN PAIN LEVEL 7 - 10 Repaglinide 0.5 mg 11/14/17 07:00 11/16/17 12:12 Prandin - PO 0.5 mg TIDAC NGA Administration Sertraline HCl 50 mg 11/14/17 10:00 11/16/17 09:48 Zoloft - PO 50 mg DAILY NGA Administration Tramadol HCl 50 mg 11/13/17 18:00 11/15/17 21:16 Ultram - PO 50 mg Q6H PRN Administration PAIN LEVEL 4-6 ASSESSMENT/PLAN: POD #3: S/P removal of anterior cervical hardware, C6 corpectomy, C3, C7 partial corpectomies,C6-C7 discectomy,C3-C7 anterior cervical instrumented fusion, cage reconstruction,anterior arthrodesis, and primary repair right jugular vein laceration. Post Surgery Pain Management: Tramadol 50 MG PO Q6H PRN, Oxycodone 10 MG PO Q4H PRN Pain Level 7-10, Oxycodone 5 MG PO Q4H PRN, Acetominophen 650 MG PO Q6H PRN. Lateral xray neck Neuro Assesment QShift OOB W/ Assist Oxygen Nasal Canula 4LPM Incentive Panora Cardio- HTN, NSTEMI -Dr Allen on board. - Asprin 325 mg po -EKG 3pm today. - Hold off on further anticoagulation until EKG is back later today. -Metoprolol 50 Mg PO Daily Panic D/O, Anxiety Sertraline 50 mg po daily Buspirone 15 mg po bid Endo-DM Repaglinide 0.5MG PO TID FEN: No Fluids Monitor Electrolytes Full Liquid Diabetic Diet DVT PPX: GREG's Dispo: Continue to monitor in ICU. Visit type - Emergency Visit Emergency Visit: No - New Patient This patient is new to me today: No - Critical Care Critical Care patient: Yes Total Critical Care Time (in minutes): 35 Critical Care Statement: The care of this patient involved high complexity decision making to prevent further life threatening deterioration of the patient 's condition and/or to evaluate & treat vital organ system(s) failure or risk of failure.
--- NOTE | 2017-11-16 16:11 | ECHO ---
Name: OLIVE, LAUREN Exam:Adult Echocardiogram Study Date: 11/16/2017 02:38 PM Reason For Study: NSTEMI Height: 60 in Weight: 141 lb BSA: 1.6 m2 BP: 117/67 mmHg MMode/2D Measurements & Calculations IVSd: 0.98 cm LA dimension: 4.1 cm LVIDd: 4.5 cm LVIDs: 3.2 cm LVPWd: 0.97 cm EDV(Teich): 93.6 ml LAV (MOD-bp): 63.0 ml ESV(Teich): 40.4 ml RV S Keagan: 10.2 cm/sec Doppler Measurements & Calculations MV E max keagan: 39.0 cm/sec MR max keagan: 325.8 cm/sec MV A max keagan: 67.1 cm/sec MR max P.5 mmHg MV E/A: 0.58 TR max keagan: 206.6 cm/sec Med Peak E' Keagan: 3.1 cm/sec TR max P.2 mmHg Med E/e': 12.5 Lat Peak E' Keagan: 6.7 cm/sec Lat E/e': 5.8 Left Ventricle The left ventricle is normal in size. Upper septal hypertrophy (sigmoid septum), normal variant. Left ventricular systolic function is normal. LVEF = 60-65%. E/A reversal consistent with but not diagnost ic of poor LV compliance. No regional wall motion abnormalities noted. Right Ventricle The right ventricle is normal in size and function. Atria The left atrium is mildly dilated. Right atrial size is normal. Mitral Valve The mitral valve is normal. There is mild mitral regurgitation. Tricuspid Valve The tricuspid valve is normal. There is trace tricuspid regurgitation. There was insufficient TR dete cted to calculate RV systolic pressure. Aortic Valve There is mild aortic sclerosis.;. Pulmonic Valve The pulmonic valve is not well seen, but is grossly normal. Great Vessels The aortic root is normal size. Pericardium/Pleura There is no pericardial effusion. Interpretation Summary The left ventricle is normal in size. Upper septal hypertrophy (sigmoid septum), normal variant. Left ventricular systolic function is normal. LVEF = 60-65%. No regional wall motion abnormalities no darlene. The right ventricle is normal in size and function. The left atrium is mildly dilated. Right atrial size is normal. The mitral valve is normal. There is mild mitral regurgitation. There is mild aortic sclerosis.; MD Suad Brown 11/16/2017 04:10 PM
--- NOTE | 2017-11-16 16:54 | PATH ---
Surgical Pathology Report Patient Name: LAUREN SCHAEFER [facility]. Rec. 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 Specimen(s) Received A: HARDWARE B: DISC C6-7 Clinical History C6 burst fracture Final Diagnosis A. HARDWARE, REMOVAL: CONSISTENT WITH HARDWARE. GROSS EXAMINATION ONLY. B. DISC C6-7, DISCECTOMY: FRAGMENTS OF CARTILAGE WITH DEGENERATIVE CHANGE. Electronically Signed John Cool M.D. Gross Description A. Received fresh labeled "hardware," is a 4.0 cm in length x 1.2 cm in diameter mauricio metallic cylindrical portion of hardware. Also received within the same container is a 5.4 x 1.6 x 0.2 cm mauricio metallic plate as well as 4 purple metallic screws averaging 1.2 cm in length. No soft tissue is present. No sections are submitted, gross only. B. Received in formalin labeled "disc C6-7," is a 2.4 x 2.2 x 0.5 cm aggregate of colón fragments of fibrocartilaginous tissue and possible bone. A in store representative portion is submitted in one cassette, following decalcification. /11/15/201711/15/2017
--- NOTE | 2017-11-16 18:04 | PN ---
Physical Exam: SUBJECTIVE: Patient seen and examined at the bedside with family in attendance. Feels well, in no acute distress. Denies shortness of breath or chest pain. Denies dizziness. Eating soft foods, some discomfort but tolerating. OBJECTIVE: nsvt overnight with ekg changes and trops 2.2>1.8 Vital Signs Period Temp Pulse Resp BP Sys/Beckwith Pulse Ox Last 24 Hr 97.6 F-98.7 F 62-92 18-18 107-167/59-78 96-98 GENERAL: Awake, alert, and fully oriented HEAD: Normal with no signs of trauma,anterior neck surgical dressing cdi EYES: Pupils equal, round and reactive to light, extraocular movements intact, sclera anicteric, conjunctiva clear. No lid lag. EARS, NOSE, THROAT: Ears normal, nares patent, oropharynx clear without exudates. Moist mucous membranes. NECK: Normal range of motion, supple without lymphadenopathy, JVD, or masses. LUNGS: Anterior breath sounds diminished. No wheezes, no shortness of breath - tolerating room air. HEART: Regular rate and rhythm ABDOMEN: Soft, nontender, not distended, normoactive bowel sounds, no guarding, no rebound, no masses. No hepatomegaly or splenomegaly. MUSCULOSKELETAL: No CVA tenderness. UPPER EXTREMITIES: No peripheral edema. LOWER EXTREMITIES: 2+ pulses, warm, well-perfused. No calf tenderness. No peripheral edema. NEUROLOGICAL: Normal speech. Normal gait. PSYCHIATRIC: Cooperative. Good eye contact. Appropriate mood and affect Laboratory Results - last 24 hr 11/12/17 11/16/17 11/16/17 09:50 05:30 05:30 WBC 7.3 RBC 3.74 Hgb 11.8 Hct 34.8 MCV 93.0 MCH 31.5 MCHC 33.8 RDW 13.0 Plt Count 246 MPV 8.3 Absolute Neuts (auto) 5.2 Neutrophils % 71.7 Lymphocytes % 19.9 Monocytes % 6.9 Eosinophils % 1.1 D Basophils % 0.4 Nucleated RBC % 0 Sodium 140 Potassium 4.3 Chloride 104 Carbon Dioxide 28 Anion Gap 8 BUN 11 Creatinine 0.4 L Creat Clearance w eGFR > 60 Random Glucose 84 Calcium 8.7 Phosphorus 3.2 Magnesium 2.0 Total Bilirubin 0.4 AST 18 ALT 12 Alkaline Phosphatase 50 Creatine Kinase CK-MB (CK-2) Troponin I Total Protein 6.1 L Albumin 3.1 L TSH Free T4 Crossmatch See Detail 11/16/17 11/16/17 11/16/17 05:30 12:25 12:25 WBC RBC Hgb Hct MCV MCH MCHC RDW Plt Count MPV Absolute Neuts (auto) Neutrophils % Lymphocytes % Monocytes % Eosinophils % Basophils % Nucleated RBC % Sodium Potassium Chloride Carbon Dioxide Anion Gap BUN Creatinine Creat Clearance w eGFR Random Glucose Calcium Phosphorus Magnesium Total Bilirubin AST ALT Alkaline Phosphatase Creatine Kinase 35 37 CK-MB (CK-2) 2.91 Troponin I 2.20 H* 1.83 H* Total Protein Albumin TSH 0.71 Cancelled Free T4 1.44 Cancelled Crossmatch Active Medications Generic Name Dose Route Start Last Admin Trade Name Freq PRN Reason Stop Dose Admin Acetaminophen 650 mg 11/13/17 18:00 11/16/17 12:12 Tylenol - PO 650 mg Q6H PRN Administration PAIN LEVEL 1-3 Aspirin 325 mg 11/16/17 13:15 11/16/17 13:34 Asa - PO 325 mg DAILY NGA Administration Atorvastatin Calcium 10 mg 11/13/17 22:00 11/15/17 21:16 Lipitor - PO 10 mg HS NGA Administration Bisacodyl 10 mg 11/13/17 18:00 11/15/17 14:23 Dulcolax Suppository - RC 10 mg DAILY PRN Administration CONSTIPATION Bisacodyl 10 mg 11/15/17 14:15 Dulcolax Suppository - [place] PRN PRN CONSTIPATION Buspirone HCl 15 mg 11/13/17 22:00 11/16/17 09:48 Buspar - PO 15 mg BID NGA Administration Calcium Carbonate/Cholecalciferol 1 tab 11/13/17 22:00 11/16/17 09:48 Os-Stepan 500+D - PO 1 tab BID NGA Administration Chlorhexidine Gluconate 1 applic 11/13/17 22:00 11/15/17 21:17 Hibiclens For Decolonization - TP 1 applic HS NGA Administration Metoprolol Tartrate 50 mg 11/16/17 11:30 11/16/17 15:28 Lopressor - PO Not Given BID NGA Mupirocin 1 applic 11/13/17 22:00 11/16/17 09:48 Bactroban Ointment (For Decolonization) - NS 11/18/17 21:59 1 applic BID NGA Administration Oxycodone HCl 5 mg 11/13/17 18:00 Roxicodone - PO Q4H PRN PAIN 4-6; IF TRAMADOL NOT WORK Oxycodone HCl 10 mg 11/13/17 18:00 Roxicodone - PO Q4H PRN PAIN LEVEL 7 - 10 Repaglinide 0.5 mg 11/14/17 07:00 11/16/17 16:54 Prandin - PO 0.5 mg TIDAC NGA Administration Sertraline HCl 50 mg 11/14/17 10:00 11/16/17 09:48 Zoloft - PO 50 mg DAILY NGA Administration Tramadol HCl 50 mg 11/13/17 18:00 11/15/17 21:16 Ultram - PO 50 mg Q6H PRN Administration PAIN LEVEL 4-6 ASSESSMENT/PLAN: Patient is a 77 year old female with a significant past medical history of hypertension, hld, diabetes cervical spine stenosis and cervical rediculopathy s /p C3-C4, C4-C5, C5-C6 discectomies; C4, C5 corpectomies; C3, C6 partial corpectomies; C3-C6 anterior cervical decompression and instrumented fusion with Dr Gustavo Velasco. She is s/p surgery on 11/13/[address] Velasco. Surgery/ortho: s/p Removal of anterior cervical hardware, C6 corpectomy, C3, C7 partial corpectomies,C6-C7 discectomy,C3-C7 anterior cervical instrumented fusion,Cage reconstruction,anterior arthrodesis and primary repair right jugular vein laceration. Patient tolerating room air, no distress. pain managed, swallowing improving, refusing narcotics, wants only Tylenol. ICU monitoring for airway s/ p surgery. Heme: Leukocytosis: resolved Cardiac Hypertension: controlled EKG changes with + trops, Monitor on tele, ekg changes from ekg 11/12. No chest pain. cardiology consulted and following. Monitor on tele Endocrine Diabetes: BGMs stable, monitor ac/hs. Prophy SCDs bilateral Incentive spirometer bowel regimen physical therapy full code Visit type - Emergency Visit Emergency Visit: Yes ED Registration Date: 11/12/17 Care time: The patient presented to the Emergency Department on the above date and was hospitalized for further evaluation of their emergent condition. - New Patient This patient is new to me today: No - Critical Care Critical Care patient: Yes Total Critical Care Time (in minutes): 50 Critical Care Statement: The care of this patient involved high complexity decision making to prevent further life threatening deterioration of the patient 's condition and/or to evaluate & treat vital organ system(s) failure or risk of failure.
[2017-11-16] MEDS ORDERED: HEPARIN NA (PORCINE) 5,000 UNITS/ML 1ML VIAL IVPUSH PRN ×2 (18:18)
[2017-11-16] MEDS ORDERED: HEPARIN NA (PORCINE) 5,000 UNITS/ML 1ML VIAL IVPUSH ONE (18:23)
[2017-11-16] MEDS: HEPARIN - 25,000 UNIT in SODIUM CHLORIDE 495 ML IV SCH (20:04)
[2017-11-16] MEDS: ATORVASTATIN CA 10 MG TABLET (FP) PO SCH (21:37)
[2017-11-16] MEDS: CHLORHEXIDINE GLUCONATE 4% CLEANSER FOR DECOLONIZATION TP SCH (21:38)
--- NOTE | 2017-11-16 21:41 | EKG ---
Test Reason : Blood Pressure : / mmHG Vent. Rate : 070 BPM Atrial Rate : 070 BPM P-R Int : 186 ms QRS Dur : 094 ms QT Int : 404 ms P-R-T Axes : 046 -05 008 degrees QTc Int : 436 ms NORMAL SINUS RHYTHM MODERATE VOLTAGE CRITERIA FOR LVH, MAY BE NORMAL VARIANT T WAVE ABNORMALITY, CONSIDER ANTERIOR ISCHEMIA ABNORMAL ECG WHEN COMPARED WITH ECG OF 16-NOV-2017 08:41, NO SIGNIFICANT CHANGE WAS FOUND Confirmed by MD LIZETTE, HARINI ([id number]) on 11/16/2017 9:41:12 PM Referred By: THANG GARCÍA DR Confirmed By:HARINI BAUER MD
[2017-11-17 05:58] LABS: BASO % 0.6 % (0-2.0); EOS % 1.8 % (0-4.5); HEMATOCRIT 34.4 % (32.4-45.2); HEMOGLOBIN 11.7 GM/dL (10.7-15.3); LYMPH % 25.5 % (8-40); MCH 31.6 pg (25.7-33.7); MCHC 34.1 g/dl (32.0-36.0); MEAN CELL VOLUME 92.4 fl (80-96); MEAN PLT VOLUME 8.6 fl (7.5-11.1); MONO % 7.5 % (3.8-10.2); NEUT % 64.6 % (42.8-82.8); PLATELET COUNT 260 K/MM3 (134-434); RBC 3.72 M/mm3 (3.60-5.2); RDW 12.7 % (11.6-15.6); WHITE BLOOD COUNT 6.5 K/mm3 (4.0-10.0)
[2017-11-17] MEDS: REPAGLINIDE 0.5 MG TABLET (FP) PO SCH ×3 (06:21→16:31)
[2017-11-17] MEDS ORDERED: PT OWN MED DRAWER 7, Y5N ONE ×3 (06:26→21:29)
[2017-11-17] MEDS: CALCIUM 500MG/VIT-D 200 UNITS COMBO TABLET (FP) PO SCH ×2 (09:34→22:12)
[2017-11-17] MEDS: METOPROLOL TARTRATE 50 MG TABLET (FP) PO SCH ×2 (09:34→22:12)
[2017-11-17] MEDS: SERTRALINE HCL 50 MG TABLET (FP) PO SCH (09:34)
[2017-11-17 09:48] LABS: ALBUMIN 3.1 g/dl (3.4-5.0); ANION GAP 11 (8-16); BLOOD UREA NITROGEN 13 mg/dL (7-18); CALCIUM 8.5 mg/dL (8.5-10.1); CHLORIDE 104 mmol/L (98-107); CO2 25 mmol/L (21-32); CREATININE 0.5 mg/dL (0.55-1.02); GLUCOSE,RANDOM 91 mg/dL (74-106); PHOSPHOROUS 3.3 mg/dL (2.5-4.9); POTASSIUM 4.4 mmol/L (3.5-5.1); SGOT/AST 14 U/L (15-37); SGPT/ALT 12 U/L (12-78); SODIUM 140 mmol/L (136-145)
[2017-11-17] MEDS ORDERED: ASPIRIN 81 MG CHEWABLE TABLETS PO SCH (10:00)
[2017-11-17 10:05] LABS: ALK PHOS 53 U/L (45-117); BILIRUBIN,TOTAL 0.4 mg/dL (0.2-1.0); TOT PROT 6.2 g/dl (6.4-8.2)
[2017-11-17] MEDS: busPIRone HCL 5 MG TABLET PO SCH ×2 (10:07→22:14)
--- NOTE | 2017-11-17 10:28 | PN ---
Progress Note, Physician History of Present Illness: The patient is a 77 year old female with a significant PMH of hypertension and diabetes who presents to the emergency department for preoperative testing. The patient reports that she recently had cervical surgery done. The patients brother reports that the patient had a doctor follow up today by which she had an x-ray done and it was found that a screw had came loose and dislodged . the patient reports that her surgeon sent her to the ED for direct admission for surgery. The patient denies endorses some itching at site secondary to discomfort. The patient denies any other symptoms. She denies any fever, chills , nausea, vomit, diarrhea, constipation or urinary symptoms. She denies any chest pain, shortness of breath, headache and dizziness. The patient denies any other complaints. - Current Medication List Current Medications: Active Medications Acetaminophen (Tylenol -) 650 mg PO Q6H PRN PRN Reason: PAIN LEVEL 1-3 Last Admin: 11/16/17 12:12 Dose: 650 mg Aspirin (Asa -) 81 mg PO DAILY [facility] Last Admin: 11/17/17 09:53 Dose: 81 mg Atorvastatin Calcium (Lipitor -) 10 mg PO HS [facility] Last Admin: 11/16/17 21:37 Dose: 10 mg Bisacodyl (Dulcolax Suppository -) 10 mg [place] PRN PRN PRN Reason: CONSTIPATION Buspirone HCl (Buspar -) 15 mg PO BID [facility] Last Admin: 11/17/17 10:07 Dose: 15 mg Calcium Carbonate/Cholecalciferol (Os-Stepan 500+D -) 1 tab PO BID [facility] Last Admin: 11/17/17 09:34 Dose: 1 tab Chlorhexidine Gluconate (Hibiclens For Decolonization -) 1 applic TP HS [facility] Last Admin: 11/16/17 21:38 Dose: 1 applic Heparin Sodium (Porcine) (Heparin -) 1,000 unit IVPUSH PRN PRN PRN Reason: Heparin Heparin Sodium (Porcine) (Heparin -) 5,000 unit IVPUSH PRN PRN PRN Reason: Heparin Heparin Sodium (Porcine) 25, (000 unit/ Sodium Chloride) 500 mls @ 15 mls/hr IV TITR [facility]; Protocol Last Titration: 11/17/17 07:40 Dose: 600 unit/hr, 12 mls/hr Metoprolol Tartrate (Lopressor -) 50 mg PO BID [facility] Last Admin: 11/17/17 09:34 Dose: 50 mg Mupirocin (Bactroban Ointment (For Decolonization) -) 1 applic NS BID [facility] Stop: 11/18/17 21:59 Last Admin: 11/16/17 21:38 Dose: 1 applic Oxycodone HCl (Roxicodone -) 5 mg PO Q4H PRN PRN Reason: PAIN 4-6; IF TRAMADOL NOT WORK Oxycodone HCl (Roxicodone -) 10 mg PO Q4H PRN PRN Reason: PAIN LEVEL 7 - 10 Repaglinide (Prandin -) 0.5 mg PO TIDAC [facility] Last Admin: 11/17/17 06:21 Dose: 0.5 mg Sertraline HCl (Zoloft -) 50 mg PO DAILY [facility] Last Admin: 11/17/17 09:34 Dose: 50 mg Tramadol HCl (Ultram -) 50 mg PO Q6H PRN PRN Reason: PAIN LEVEL 4-6 Last Admin: 11/15/17 21:16 Dose: 50 mg - Objective Vital Signs: Vital Signs Temperature 97.9 F 11/17/17 07:40 Pulse Rate 74 11/17/17 07:40 Respiratory Rate 17 11/17/17 07:40 Blood Pressure 115/77 11/17/17 07:40 O2 Sat by Pulse Oximetry (%) 98 11/17/17 07:40 Eyes: Yes: WNL, Conjunctiva Clear, EOM Intact HENT: Yes: WNL, Atraumatic, Normocephalic Neck: Yes: WNL, Supple, Trachea Midline Cardiovascular: Yes: WNL, Regular Rate and Rhythm Respiratory: Yes: WNL, Regular, CTA Bilaterally Gastrointestinal: Yes: WNL, Normal Bowel Sounds Genitourinary: Yes: WNL Musculoskeletal: Yes: WNL Extremities: Yes: WNL Edema: No Integumentary: Yes: WNL Neurological: Yes: WNL, Alert, Oriented ...Motor Strength: WNL Psychiatric: Yes: WNL Labs: CBC, BMP 11/17/17 05:30 11/17/17 05:30 INR, PTT INR 1.24 (0.82-1.09) H 11/13/17 20:10 Assessment/Plan Burst Fracture/Anterior Cervical Hardware Failure s/p Removal Anterior Cervical Hardware/C6 corpectomy/C3, C7 partial corpectomies /C6-C7 discectomy/C3-C7 anterior cervical instrumented fusion/cage reconstruction/primary right jugular vein laceration Acute NSTEMI acute ekg changes HTN Hyperlipidemia DM Plan cont iv heparin bb echo increase asa to 325 if OK by surgery keep ldl below 70 risk stratification vs. c. cath when stable cc time spent 37 min
[2017-11-17] MEDS: MUPIROCIN 2% TOPICAL OINTMENT FOR DECOLONIZATION NS SCH ×2 (11:00→22:12)
[2017-11-17] MEDS ORDERED: DOCUSATE NA 100 MG/10 ML UNIT-DOSE CUPS PO ONE (11:14)
--- NOTE | 2017-11-17 11:15 | PN ---
Teaching Attending Note Name of Resident: Saqib Barrios ATTENDING PHYSICIAN STATEMENT I saw and evaluated the patient. I reviewed the resident's note and discussed the case with the resident. I agree with the resident's findings and plan as documented. SUBJECTIVE: Pt seen and examined in the ICU. Some pain but tolerable. Tolerating PO. No nausea or vomiting. OBJECTIVE: Vital Signs Period Temp Pulse Resp BP Sys/Beckwith Pulse Ox Last 24 Hr 97.9 F-98.5 F 60-81 17-21 107-138/54-87 98-98 Intake & Output 11/14/17 11/15/17 11/16/17 11/17/17 23:59 23:59 23:59 23:59 Intake Total 2796 2021 520 240 Output Total 4600 400 Balance -1804 1621 520 240 Weight 63.957 kg Gen: NAD in chair Heart: RRR Lung: decreased breath sounds at the bases Abd: soft, nontender Ext: no edema CBC, BMP 11/17/17 05:30 11/17/17 05:30 Active Medications Acetaminophen (Tylenol -) 650 mg PO Q6H PRN PRN Reason: PAIN LEVEL 1-3 Last Admin: 11/16/17 12:12 Dose: 650 mg Aspirin (Asa -) 81 mg PO DAILY [facility] Last Admin: 11/17/17 09:53 Dose: 81 mg Atorvastatin Calcium (Lipitor -) 10 mg PO HS [facility] Last Admin: 11/16/17 21:37 Dose: 10 mg Bisacodyl (Dulcolax Suppository -) 10 mg [place] PRN PRN PRN Reason: CONSTIPATION Buspirone HCl (Buspar -) 15 mg PO BID [facility] Last Admin: 11/17/17 10:07 Dose: 15 mg Calcium Carbonate/Cholecalciferol (Os-Stepan 500+D -) 1 tab PO BID [facility] Last Admin: 11/17/17 09:34 Dose: 1 tab Chlorhexidine Gluconate (Hibiclens For Decolonization -) 1 applic TP HS [facility] Last Admin: 11/16/17 21:38 Dose: 1 applic Heparin Sodium (Porcine) (Heparin -) 1,000 unit IVPUSH PRN PRN PRN Reason: Heparin Heparin Sodium (Porcine) (Heparin -) 5,000 unit IVPUSH PRN PRN PRN Reason: Heparin Heparin Sodium (Porcine) 25, (000 unit/ Sodium Chloride) 500 mls @ 15 mls/hr IV TITR [facility]; Protocol Last Titration: 11/17/17 07:40 Dose: 600 unit/hr, 12 mls/hr Metoprolol Tartrate (Lopressor -) 50 mg PO BID [facility] Last Admin: 11/17/17 09:34 Dose: 50 mg Mupirocin (Bactroban Ointment (For Decolonization) -) 1 applic NS BID [facility] Stop: 11/18/17 21:59 Last Admin: 11/16/17 21:38 Dose: 1 applic Oxycodone HCl (Roxicodone -) 5 mg PO Q4H PRN PRN Reason: PAIN 4-6; IF TRAMADOL NOT WORK Oxycodone HCl (Roxicodone -) 10 mg PO Q4H PRN PRN Reason: PAIN LEVEL 7 - 10 Repaglinide (Prandin -) 0.5 mg PO TIDAC [facility] Last Admin: 11/17/17 06:21 Dose: 0.5 mg Sertraline HCl (Zoloft -) 50 mg PO DAILY [facility] Last Admin: 11/17/17 09:34 Dose: 50 mg Tramadol HCl (Ultram -) 50 mg PO Q6H PRN PRN Reason: PAIN LEVEL 4-6 Last Admin: 11/15/17 21:16 Dose: 50 mg ASSESSMENT AND PLAN: Burst Fracture/Anterior Cervical Hardware Failure s/p Removal Anterior Cervical Hardware/C6 corpectomy/C3, C7 partial corpectomies /C6-C7 discectomy/C3-C7 anterior cervical instrumented fusion/cage reconstruction/primary right jugular vein laceration Acute NSTEMI HTN Hyperlipidemia DM - pain control - incentive spirometry - bowel regimen - ASA, statin - heparin protocol - beta vikki - can monitor on telemetry
--- NOTE | 2017-11-17 12:43 | PN ---
Physical Exam: SUBJECTIVE: Patient seen and examined at the bedside. Awake and alert. Being fed my family. Patient tolerating meals, at times has difficulty swallowing but she states its getting better. On a soft diet. OBJECTIVE: Vital Signs Period Temp Pulse Resp BP Sys/Beckwith Pulse Ox Last 24 Hr 97.9 F-98.5 F 60-81 16-21 107-138/54-87 98-98 GENERAL: Awake, alert, and fully oriented HEAD: Normal with no signs of trauma,anterior neck surgical dressing cdi, on soft collar EYES: Pupils equal, round and reactive to light, extraocular movements intact, sclera anicteric, conjunctiva clear. No lid lag. EARS, NOSE, THROAT: Ears normal, nares patent, oropharynx clear without exudates. Moist mucous membranes. NECK: Normal range of motion, supple without lymphadenopathy, JVD, or masses. LUNGS: Anterior breath sounds diminished. No wheezes, no shortness of breath - tolerating room air. HEART: Regular rate and rhythm ABDOMEN: Soft, nontender, not distended, normoactive bowel sounds, no guarding, no rebound, no masses. No hepatomegaly or splenomegaly. MUSCULOSKELETAL: No CVA tenderness. UPPER EXTREMITIES: No peripheral edema. LOWER EXTREMITIES: 2+ pulses, warm, well-perfused. No calf tenderness. No peripheral edema. NEUROLOGICAL: Normal speech. Normal gait. PSYCHIATRIC: Cooperative. Good eye contact. Appropriate mood and affect Laboratory Results - last 24 hr 11/16/17 11/16/17 11/16/17 05:30 12:25 12:25 WBC RBC Hgb Hct MCV MCH MCHC RDW Plt Count MPV Absolute Neuts (auto) Neutrophils % Lymphocytes % Monocytes % Eosinophils % Basophils % Nucleated RBC % PTT (Actin FS) Sodium Potassium Chloride Carbon Dioxide Anion Gap BUN Creatinine Creat Clearance w eGFR POC Glucometer Random Glucose Calcium Phosphorus Magnesium Total Bilirubin AST ALT Alkaline Phosphatase Creatine Kinase 37 CK-MB (CK-2) 2.91 Troponin I 1.83 H* Total Protein Albumin TSH 0.71 Cancelled Free T4 1.44 Cancelled 11/16/17 11/16/17 11/17/17 17:49 19:40 05:30 WBC 6.5 RBC 3.72 Hgb 11.7 Hct 34.4 MCV 92.4 MCH 31.6 MCHC 34.1 RDW 12.7 Plt Count 260 MPV 8.6 Absolute Neuts (auto) 4.2 Neutrophils % 64.6 Lymphocytes % 25.5 D Monocytes % 7.5 Eosinophils % 1.8 Basophils % 0.6 Nucleated RBC % 0 PTT (Actin FS) 34.0 Sodium Potassium Chloride Carbon Dioxide Anion Gap BUN Creatinine Creat Clearance w eGFR POC Glucometer [phone] Random Glucose Calcium Phosphorus Magnesium Total Bilirubin AST ALT Alkaline Phosphatase Creatine Kinase CK-MB (CK-2) Troponin I Total Protein Albumin TSH Free T4 11/17/17 11/17/17 11/17/17 05:30 05:30 09:30 WBC RBC Hgb Hct MCV MCH MCHC RDW Plt Count MPV Absolute Neuts (auto) Neutrophils % Lymphocytes % Monocytes % Eosinophils % Basophils % Nucleated RBC % PTT (Actin FS) 136.1 H D Sodium 140 Potassium 4.4 Chloride 104 Carbon Dioxide 25 Anion Gap 11 BUN 13 Creatinine 0.5 L Creat Clearance w eGFR > 60 POC Glucometer Random Glucose 91 Calcium 8.5 Phosphorus 3.3 Magnesium 2.0 Total Bilirubin 0.4 AST 14 L ALT 12 Alkaline Phosphatase 53 Creatine Kinase CK-MB (CK-2) Troponin I 0.98 H* Cancelled Total Protein 6.2 L Albumin 3.1 L TSH Free T4 11/17/17 11:56 WBC RBC Hgb Hct MCV MCH MCHC RDW Plt Count MPV Absolute Neuts (auto) Neutrophils % Lymphocytes % Monocytes % Eosinophils % Basophils % Nucleated RBC % PTT (Actin FS) Sodium Potassium Chloride Carbon Dioxide Anion Gap BUN Creatinine Creat Clearance w eGFR POC Glucometer [phone] Random Glucose Calcium Phosphorus Magnesium Total Bilirubin AST ALT Alkaline Phosphatase Creatine Kinase CK-MB (CK-2) Troponin I Total Protein Albumin TSH Free T4 Active Medications Generic Name Dose Route Start Last Admin Trade Name Freq PRN Reason Stop Dose Admin Acetaminophen 650 mg 11/13/17 18:00 11/16/17 12:12 Tylenol - PO 650 mg Q6H PRN Administration PAIN LEVEL 1-3 Aspirin 81 mg 11/17/17 10:00 11/17/17 09:53 Asa - PO 81 mg DAILY NGA Administration Atorvastatin Calcium 10 mg 11/13/17 22:00 11/16/17 21:37 Lipitor - PO 10 mg HS NGA Administration Bisacodyl 10 mg 11/15/17 14:15 Dulcolax Suppository - ND PRN PRN CONSTIPATION Buspirone HCl 15 mg 11/13/17 22:00 11/17/17 10:07 Buspar - PO 15 mg BID NGA Administration Calcium Carbonate/Cholecalciferol 1 tab 11/13/17 22:00 11/17/17 09:34 Os-Stepan 500+D - PO 1 tab BID NGA Administration Chlorhexidine Gluconate 1 applic 11/13/17 22:00 11/16/17 21:38 Hibiclens For Decolonization - TP 1 applic HS NGA Administration Heparin Sodium (Porcine) 1,000 unit 11/16/17 18:18 Heparin - IVPUSH PRN PRN Heparin Heparin Sodium (Porcine) 5,000 unit 11/16/17 18:18 Heparin - IVPUSH PRN PRN Heparin Heparin Sodium (Porcine) 25, 500 mls @ 15 mls/hr 11/16/17 19:00 11/17/17 07: 40 000 unit/ Sodium Chloride IV 600 unit/hr TITR NGA 12 mls/hr Titration Protocol 750 UNIT/HR Metoprolol Tartrate 50 mg 11/16/17 11:30 11/17/17 09:34 Lopressor - PO 50 mg BID NGA Administration Mupirocin 1 applic 11/13/17 22:00 11/17/17 11:00 Bactroban Ointment (For Decolonization) - NS 11/18/17 21:59 1 applic BID NGA Administration Oxycodone HCl 5 mg 11/13/17 18:00 Roxicodone - PO Q4H PRN PAIN 4-6; IF TRAMADOL NOT WORK Oxycodone HCl 10 mg 11/13/17 18:00 Roxicodone - PO Q4H PRN PAIN LEVEL 7 - 10 Repaglinide 0.5 mg 11/14/17 07:00 11/17/17 11:55 Prandin - PO 0.5 mg TIDAC NGA Administration Sertraline HCl 50 mg 11/14/17 10:00 11/17/17 09:34 Zoloft - PO 50 mg DAILY NGA Administration Tramadol HCl 50 mg 11/13/17 18:00 11/15/17 21:16 Ultram - PO 50 mg Q6H PRN Administration PAIN LEVEL 4-6 ASSESSMENT/PLAN: Patient is a 77 year old female with a significant past medical history of hypertension, hld, diabetes cervical spine stenosis and cervical rediculopathy s /p C3-C4, C4-C5, C5-C6 discectomies; C4, C5 corpectomies; C3, C6 partial corpectomies; C3-C6 anterior cervical decompression and instrumented fusion with Dr Gustavo Velasco. She is s/p surgery on 11/13/[address] Velasco. Surgery/ortho: s/p Removal of anterior cervical hardware, C6 corpectomy, C3, C7 partial corpectomies,C6-C7 discectomy,C3-C7 anterior cervical instrumented fusion,Cage reconstruction,anterior arthrodesis and primary repair right jugular vein laceration. Patient tolerating room air, no distress. pain managed, swallowing improving, refusing narcotics, wants only Tylenol. ICU monitoring for airway s/ p surgery. Heme: Leukocytosis: resolved Cardiac Hypertension: controlled NSTEMI, acute EKG changes with + trops. On tele, ekg changes from ekg 11/12. No chest pain. cardiology consulted and following. Endocrine Diabetes: BGMs stable, monitor ac/hs. Prophy SCDs bilateral Incentive spirometer bowel regimen physical therapy full code Visit type - Emergency Visit Emergency Visit: Yes ED Registration Date: 11/12/17 Care time: The patient presented to the Emergency Department on the above date and was hospitalized for further evaluation of their emergent condition. - New Patient This patient is new to me today: No - Critical Care Critical Care patient: Yes Total Critical Care Time (in minutes): 30 Critical Care Statement: The care of this patient involved high complexity decision making to prevent further life threatening deterioration of the patient 's condition and/or to evaluate & treat vital organ system(s) failure or risk of failure. - Discharge Referral Referred to [facility] Yes
[2017-11-17] MEDS ORDERED: ASPIRIN 325 MG TABLET PO SCH (13:47)
--- NOTE | 2017-11-17 16:11 | EKG ---
Test Reason : Blood Pressure : / mmHG Vent. Rate : 071 BPM Atrial Rate : 071 BPM P-R Int : 168 ms QRS Dur : 094 ms QT Int : 408 ms P-R-T Axes : 013 -08 011 degrees QTc Int : 443 ms NORMAL SINUS RHYTHM VOLTAGE CRITERIA FOR LEFT VENTRICULAR HYPERTROPHY MARKED T WAVE ABNORMALITY, CONSIDER ANTEROLATERAL ISCHEMIA ABNORMAL ECG WHEN COMPARED WITH ECG OF 16-NOV-2017 15:00, NO SIGNIFICANT CHANGE WAS FOUND Confirmed by SYED DUNHAM, KATINA ([id number]) on 11/17/2017 4:10:54 PM Referred By: AMBERLY FAIRBANKS Confirmed By:KATINA LYNCH MD
[2017-11-17] MEDS: ACETAMINOPHEN 325 MG TABLET (FP) PO PRN (16:44)
--- NOTE | 2017-11-17 21:16 | PN ---
Physical Exam: SUBJECTIVE: Patient seen and examined today in icu. Is feeling much better, sitting in chair, cervical collar still in use. Denies cp, sabillon, nausea, or vomiting. OBJECTIVE: Vital Signs Period Temp Pulse Resp BP Sys/Beckwith Pulse Ox Last 24 Hr 97.9 F-98.5 F 60-78 16-21 110-138/54-87 98-98 GENERAL: AAOx3. HEAD: Normal with no signs of trauma. EYES: EOMI ENT WNL. NECK: Cervical collar on. LUNGS: CTA B/L HEART: RRR. ABDOMEN: No HSM,NT, ND EXTREMITIES: No CCE. NEUROLOGICAL: no Neuro Deficits PSYCH: Normal mood, normal affect. SKIN: Warm. Laboratory Results - last 24 hr 11/17/17 11/17/17 11/17/17 05:30 05:30 05:30 WBC 6.5 RBC 3.72 Hgb 11.7 Hct 34.4 MCV 92.4 MCH 31.6 MCHC 34.1 RDW 12.7 Plt Count 260 MPV 8.6 Absolute Neuts (auto) 4.2 Neutrophils % 64.6 Lymphocytes % 25.5 D Monocytes % 7.5 Eosinophils % 1.8 Basophils % 0.6 Nucleated RBC % 0 PTT (Actin FS) 136.1 H D Sodium 140 Potassium 4.4 Chloride 104 Carbon Dioxide 25 Anion Gap 11 BUN 13 Creatinine 0.5 L Creat Clearance w eGFR > 60 POC Glucometer Random Glucose 91 Calcium 8.5 Phosphorus 3.3 Magnesium 2.0 Total Bilirubin 0.4 AST 14 L ALT 12 Alkaline Phosphatase 53 Troponin I 0.98 H* Total Protein 6.2 L Albumin 3.1 L 11/17/17 11/17/17 11/17/17 09:30 11:56 13:13 WBC RBC Hgb Hct MCV MCH MCHC RDW Plt Count MPV Absolute Neuts (auto) Neutrophils % Lymphocytes % Monocytes % Eosinophils % Basophils % Nucleated RBC % PTT (Actin FS) 44.8 H D Sodium Potassium Chloride Carbon Dioxide Anion Gap BUN Creatinine Creat Clearance w eGFR POC Glucometer [phone] Random Glucose Calcium Phosphorus Magnesium Total Bilirubin AST ALT Alkaline Phosphatase Troponin I Cancelled Total Protein Albumin Active Medications Generic Name Dose Route Start Last Admin Trade Name Freq PRN Reason Stop Dose Admin Acetaminophen 650 mg 11/13/17 18:00 11/17/17 16:44 Tylenol - PO 650 mg Q6H PRN Administration PAIN LEVEL 1-3 Aspirin 325 mg 11/17/17 13:47 Asa - PO DAILY NGA Atorvastatin Calcium 10 mg 11/13/17 22:00 11/16/17 21:37 Lipitor - PO 10 mg HS NGA Administration Bisacodyl 10 mg 11/15/17 14:15 Dulcolax Suppository - RI PRN PRN CONSTIPATION Buspirone HCl 15 mg 11/13/17 22:00 11/17/17 10:07 Buspar - PO 15 mg BID NGA Administration Calcium Carbonate/Cholecalciferol 1 tab 11/13/17 22:00 11/17/17 09:34 Os-Stepan 500+D - PO 1 tab BID NGA Administration Chlorhexidine Gluconate 1 applic 11/13/17 22:00 11/16/17 21:38 Hibiclens For Decolonization - TP 1 applic HS NGA Administration Heparin Sodium (Porcine) 1,000 unit 11/16/17 18:18 11/17/17 14:05 Heparin - IVPUSH 1,000 unit PRN PRN Administration Heparin Heparin Sodium (Porcine) 5,000 unit 11/16/17 18:18 Heparin - IVPUSH PRN PRN Heparin Heparin Sodium (Porcine) 25, 500 mls @ 15 mls/hr 11/16/17 19:00 11/17/17 14: 04 000 unit/ Sodium Chloride IV 700 unit/hr TITR NGA 14 mls/hr Titration Protocol 750 UNIT/HR Metoprolol Tartrate 50 mg 11/16/17 11:30 11/17/17 09:34 Lopressor - PO 50 mg BID NGA Administration Mupirocin 1 applic 11/13/17 22:00 11/17/17 11:00 Bactroban Ointment (For Decolonization) - NS 11/18/17 21:59 1 applic BID NGA Administration Oxycodone HCl 5 mg 11/13/17 18:00 Roxicodone - PO Q4H PRN PAIN 4-6; IF TRAMADOL NOT WORK Oxycodone HCl 10 mg 11/13/17 18:00 Roxicodone - PO Q4H PRN PAIN LEVEL 7 - 10 Repaglinide 0.5 mg 11/14/17 07:00 11/17/17 16:31 Prandin - PO 0.5 mg TIDAC NGA Administration Sertraline HCl 50 mg 11/14/17 10:00 11/17/17 09:34 Zoloft - PO 50 mg DAILY NGA Administration Tramadol HCl 50 mg 11/13/17 18:00 11/15/17 21:16 Ultram - PO 50 mg Q6H PRN Administration PAIN LEVEL 4-6 ASSESSMENT/PLAN: POD #4: S/P removal of anterior cervical hardware, C6 corpectomy, C3, C7 partial corpectomies,C6-C7 discectomy,C3-C7 anterior cervical instrumented fusion, cage reconstruction,anterior arthrodesis, and primary repair right jugular vein laceration. Post Surgery Pain Management: Tramadol 50 MG PO Q6H PRN, Oxycodone 10 MG PO Q4H PRN Pain Level 7-10, Oxycodone 5 MG PO Q4H PRN, Acetominophen 650 MG PO Q6H PRN. -Cardio- HTN, NSTEMI -Cardio on Board. - Asprin 81 mg. -Metoprolol 50 Mg PO Daily -Heparin gtt -Lipitor 10 mg PO -No Longer trending Trops Incentive Farhad Endo-DM Repaglinide 0.5MG PO TID FEN: No Fluids Monitor Electrolytes Full Liquid Diabetic Diet DVT ppx: Heparin gtt Dispo: pt to be transferred to telemetry Visit type - Emergency Visit Emergency Visit: No - New Patient This patient is new to me today: No - Critical Care Critical Care patient: Yes Total Critical Care Time (in minutes): 35 Critical Care Statement: The care of this patient involved high complexity decision making to prevent further life threatening deterioration of the patient 's condition and/or to evaluate & treat vital organ system(s) failure or risk of failure.
[2017-11-17] MEDS: HEPARIN - 25,000 UNIT in SODIUM CHLORIDE 495 ML IV SCH (22:11)
[2017-11-17] MEDS: CHLORHEXIDINE GLUCONATE 4% CLEANSER FOR DECOLONIZATION TP SCH (22:12)
[2017-11-17] MEDS: ATORVASTATIN CA 10 MG TABLET (FP) PO SCH (22:12)
[2017-11-18 06:30] LABS: BASO % 0.8 % (0-2.0); EOS % 1.9 % (0-4.5); HEMATOCRIT 34.8 % (32.4-45.2); LYMPH % 24.6 % (8-40); MCH 31.9 pg (25.7-33.7); MCHC 34.5 g/dl (32.0-36.0); MEAN CELL VOLUME 92.6 fl (80-96); MEAN PLT VOLUME 8.9 fl (7.5-11.1); MONO % 7.9 % (3.8-10.2); NEUT % 64.8 % (42.8-82.8); PLATELET COUNT 298 K/MM3 (134-434); RBC 3.75 M/mm3 (3.60-5.2); RDW 13.2 % (11.6-15.6); WHITE BLOOD COUNT 6.3 K/mm3 (4.0-10.0)
[2017-11-18 06:48] LABS: ANION GAP 7 (8-16); BLOOD UREA NITROGEN 11 mg/dL (7-18); CALCIUM 8.9 mg/dL (8.5-10.1); CHLORIDE 105 mmol/L (98-107); CO2 27 mmol/L (21-32); CREATININE 0.5 mg/dL (0.55-1.02); GLUCOSE,RANDOM 114 mg/dL (74-106); MAGNESIUM 1.9 mg/dL (1.8-2.4); PHOSPHOROUS 3.8 mg/dL (2.5-4.9); POTASSIUM 4.5 mmol/L (3.5-5.1); SODIUM 139 mmol/L (136-145)
[2017-11-18] MEDS ORDERED: PT OWN MED DRAWER 7, Y5N ONE ×3 (07:39→14:05)
[2017-11-18] MEDS: REPAGLINIDE 0.5 MG TABLET (FP) PO SCH ×3 (07:41→16:50)
[2017-11-18] MEDS: METOPROLOL TARTRATE 50 MG TABLET (FP) PO SCH ×3 (09:13→22:22)
[2017-11-18] MEDS: CALCIUM 500MG/VIT-D 200 UNITS COMBO TABLET (FP) PO SCH ×3 (09:13→22:22)
[2017-11-18] MEDS: SERTRALINE HCL 50 MG TABLET (FP) PO SCH (09:17)
[2017-11-18] MEDS: MUPIROCIN 2% TOPICAL OINTMENT FOR DECOLONIZATION NS SCH (09:19)
[2017-11-18] MEDS ORDERED: oxyCODONE HCL 5 MG TABLET PO PRN ×2 (09:47)
[2017-11-18] MEDS ORDERED: HEPARIN NA (PORCINE) 5,000 UNITS/ML 1ML VIAL IVPUSH PRN ×4 (09:47→09:59)
[2017-11-18] MEDS ORDERED: traMADol HCL 50 MG TABLET PO PRN (09:47)
[2017-11-18] MEDS ORDERED: SERTRALINE HCL 50 MG TABLET (FP) PO SCH (10:00)
[2017-11-18] MEDS: busPIRone HCL 5 MG TABLET PO SCH ×2 (10:07→22:21)
[2017-11-18] MEDS ORDERED: HEPARIN - 25,000 UNIT in SODIUM CHLORIDE 495 ML IV SCH (10:10)
--- NOTE | 2017-11-18 15:38 | PN ---
Physical Exam: SUBJECTIVE: Patient seen and examined OBJECTIVE: Vital Signs Period Temp Pulse Resp BP Sys/Beckwith Pulse Ox Last 24 Hr 98.3 F-98.4 F 58-81 15-19 113-154/62-75 98-98 GENERAL: The patient is awake, alert, and fully oriented, in no acute distress. HEAD: Normal with no signs of trauma. EYES: PERRL, extraocular movements intact, sclera anicteric, conjunctiva clear. No ptosis. ENT: Ears normal, nares patent, oropharynx clear without exudates, moist mucous membranes. NECK: Trachea midline, full range of motion, supple. LUNGS: Breath sounds equal, clear to auscultation bilaterally, no wheezes, no crackles, no accessory muscle use. HEART: Regular rate and rhythm, S1, S2 without murmur, rub or gallop. ABDOMEN: Soft, nontender, nondistended, normoactive bowel sounds, no guarding, no rebound, no hepatosplenomegaly, no masses. EXTREMITIES: 2+ pulses, warm, well-perfused, no edema. NEUROLOGICAL: Cranial nerves II through XII grossly intact. Normal speech, gait not observed. PSYCH: Normal mood, normal affect. SKIN: Warm, dry, normal turgor, no rashes or lesions noted Laboratory Results - last 24 hr 11/17/17 11/17/17 11/17/17 16:40 21:20 22:00 WBC RBC Hgb Hct MCV MCH MCHC RDW Plt Count MPV Absolute Neuts (auto) Neutrophils % Lymphocytes % Monocytes % Eosinophils % Basophils % Nucleated RBC % PTT (Actin FS) Cancelled 55.5 H Sodium Potassium Chloride Carbon Dioxide Anion Gap BUN Creatinine Creat Clearance w eGFR POC Glucometer [phone] Random Glucose Calcium Phosphorus Magnesium Creatine Kinase Troponin I Triglycerides Cholesterol Total LDL Cholesterol HDL Cholesterol 11/18/17 11/18/17 11/18/17 05:30 05:30 05:30 WBC RBC Hgb Hct MCV MCH MCHC RDW Plt Count MPV Absolute Neuts (auto) Neutrophils % Lymphocytes % Monocytes % Eosinophils % Basophils % Nucleated RBC % PTT (Actin FS) 50.6 H Sodium 139 Potassium 4.5 Chloride 105 Carbon Dioxide 27 Anion Gap 7 L BUN 11 Creatinine 0.5 L Creat Clearance w eGFR > 60 POC Glucometer Random Glucose 114 H Calcium 8.9 Phosphorus 3.8 Magnesium 1.9 Creatine Kinase 24 L Troponin I 0.49 H Triglycerides 108 Cholesterol 127 Total LDL Cholesterol 52 HDL Cholesterol 62 H 11/18/17 11/18/17 05:30 05:45 WBC 6.3 RBC 3.75 Hgb 12.0 Hct 34.8 MCV 92.6 MCH 31.9 MCHC 34.5 RDW 13.2 Plt Count 298 MPV 8.9 Absolute Neuts (auto) 4.1 Neutrophils % 64.8 Lymphocytes % 24.6 Monocytes % 7.9 Eosinophils % 1.9 Basophils % 0.8 Nucleated RBC % 0 PTT (Actin FS) Sodium Potassium Chloride Carbon Dioxide Anion Gap BUN Creatinine Creat Clearance w eGFR POC Glucometer [phone] Random Glucose Calcium Phosphorus Magnesium Creatine Kinase Troponin I Triglycerides Cholesterol Total LDL Cholesterol HDL Cholesterol Active Medications Generic Name Dose Route Start Last Admin Trade Name Freq PRN Reason Stop Dose Admin Acetaminophen 650 mg 11/18/17 09:47 Tylenol - PO Q6H PRN PAIN LEVEL 1-3 Aspirin 81 mg 11/19/17 10:00 Ecotrin - PO DAILY [facility] Atorvastatin Calcium 10 mg 11/18/17 22:00 Lipitor - PO HS [facility] Bisacodyl 10 mg 11/18/17 09:47 Dulcolax Suppository - RC PRN PRN CONSTIPATION Buspirone HCl 15 mg 11/18/17 10:00 11/18/17 10:07 Buspar - PO Not Given BID [facility] Calcium Carbonate/Cholecalciferol 1 tab 11/18/17 10:00 11/18/17 10:08 Os-Stepan 500+D - PO Not Given BID [facility] Metoprolol Tartrate 50 mg 11/18/17 10:00 11/18/17 10:08 Lopressor - PO Not Given BID [facility] Oxycodone HCl 5 mg 11/18/17 09:47 Roxicodone - PO Q4H PRN PAIN 4-6; IF TRAMADOL NOT WORK Oxycodone HCl 10 mg 11/18/17 09:47 Roxicodone - PO Q4H PRN PAIN LEVEL 7 - 10 Repaglinide 0.5 mg 11/18/17 11:00 11/18/17 14:03 Prandin - PO Not Given TIDAC [facility] Sertraline HCl 50 mg 11/19/17 10:00 Zoloft - PO DAILY [facility] Tramadol HCl 50 mg 11/18/17 09:47 Ultram - PO Q6H PRN PAIN LEVEL 4-6 Assessment: 77 year old female with phmx HTN, HLD, DM II, cervical spine stenosis and cervical rediculopathy s/p cervical surgery with primary right jugular vein laceration. Plan: 1. s/p Post reconstruction of anterior arthrodesis, repair of jugular vein laceration 11/13 - Continue soft collar - Advance to soft diet - For posterior C3 to C7 instrumented fusion to be planned once stable per ortho - DC Rehab 2. NSTEMI, acute - Trops down trended - EKG no further ischemic events, converted to NSR - Stop heparin gtt - Start low dose asa, on shelter ac at this time - D/w cardiology, pt will follow up in 2 weeks for echo, stress 3. HTN - Controlled - Metoprolol 50mg BID 4. DM II - ISS, BGM ACHS Visit type - Emergency Visit Emergency Visit: Yes ED Registration Date: 11/12/17 Care time: The patient presented to the Emergency Department on the above date and was hospitalized for further evaluation of their emergent condition. - New Patient This patient is new to me today: Yes Date on this admission: 11/18/17 - Critical Care Critical Care patient: No
[2017-11-18] MEDS: ATORVASTATIN CA 10 MG TABLET (FP) PO SCH (22:21)
--- NOTE | 2017-11-19 03:27 | PN ---
Progress Note, Physician Chief Complaint: Pt OOB in chair; no chest pain or dyspnea. Pt's sister and brother are at bedside. History of Present Illness: The patient is a 77 year old white female (jens Cross), with a significant PMH of hypertension and diabetes, who presents to the emergency department for preoperative testing. The patient reports that she recently had cervical surgery done. The patients brother reports that the patient had a doctor follow up today by which she had an x-ray done and it was found that a screw had came loose and dislodged . the patient reports that her surgeon sent her to the ED for direct admission for surgery. The patient denies endorses some itching at site secondary to discomfort. The patient denies any other symptoms. She denies any fever, chills, nausea, vomit, diarrhea, constipation or urinary symptoms. She denies any chest pain, shortness of breath, headache and dizziness. The patient denies any other complaints. Pt has now been found to have EKG changes and TNI elevation, and cardiology evaluation was called. - Current Medication List Current Medications: Active Medications Acetaminophen (Tylenol -) 650 mg PO Q6H PRN PRN Reason: PAIN LEVEL 1-3 Aspirin (Ecotrin -) 81 mg PO DAILY [facility] Atorvastatin Calcium (Lipitor -) 10 mg PO HS [facility] Last Admin: 11/18/17 22:21 Dose: 10 mg Bisacodyl (Dulcolax Suppository -) 10 mg RC PRN PRN PRN Reason: CONSTIPATION Buspirone HCl (Buspar -) 15 mg PO BID [facility] Last Admin: 11/18/17 22:21 Dose: 15 mg Calcium Carbonate/Cholecalciferol (Os-Stepan 500+D -) 1 tab PO BID [facility] Last Admin: 11/18/17 22:22 Dose: 1 tab Metoprolol Tartrate (Lopressor -) 50 mg PO BID [facility] Last Admin: 11/18/17 22:22 Dose: 50 mg Oxycodone HCl (Roxicodone -) 5 mg PO Q4H PRN PRN Reason: PAIN 4-6; IF TRAMADOL NOT WORK Oxycodone HCl (Roxicodone -) 10 mg PO Q4H PRN PRN Reason: PAIN LEVEL 7 - 10 Repaglinide (Prandin -) 0.5 mg PO TIDAC [facility] Last Admin: 11/18/17 16:50 Dose: 0.5 mg Sertraline HCl (Zoloft -) 50 mg PO DAILY NGA Tramadol HCl (Ultram -) 50 mg PO Q6H PRN PRN Reason: PAIN LEVEL 4-6 - Objective Vital Signs: Vital Signs Temperature 97.4 F L 11/19/17 02:00 Pulse Rate 66 11/19/17 02:00 Respiratory Rate 20 11/19/17 02:00 Blood Pressure 132/68 11/19/17 02:00 O2 Sat by Pulse Oximetry (%) 98 11/18/17 21:00 Constitutional: Yes: Calm Eyes: Yes: WNL HENT: Yes: WNL Neck: Yes: Decreased ROM, Other (s/p surgery for "nicked" jugular vein) Cardiovascular: Yes: S1, S2 Respiratory: Yes: Regular Gastrointestinal: Yes: Soft ...Rectal Exam: Yes: Deferred Genitourinary: No: Anuria Breast(s): Yes: WNL Musculoskeletal: Yes: Muscle Weakness Extremities: Yes: Cool Edema: No Peripheral Pulses WNL: Yes Wound/Incision: Yes: Dressing Dry and Intact Neurological: Yes: Alert, Oriented, Weakness Psychiatric: Yes: Alert, Oriented Labs: CBC, BMP 11/18/17 05:30 11/18/17 05:30 INR, PTT INR 1.24 (0.82-1.09) H 11/13/17 20:10 Abnormal Lab Results 11/18/17 07:40 Creatine Kinase 24 L Troponin I 0.45 H Problem List - Problems (1) Diabetes Assessment/Plan: by history;? on medications Code(s): E11.9 - TYPE 2 DIABETES MELLITUS WITHOUT COMPLICATIONS (2) HTN (hypertension) Code(s): I10 - ESSENTIAL (PRIMARY) HYPERTENSION (3) Loosening of hardware in spine Code(s): T84.498A - [facility] COMPL OF INTERNAL ORTH DEVICES, IMPLNT AND GRAFTS, INIT (4) H/O cervical spine surgery Assessment/Plan: f/u with surgeon Code(s): Z98.890 - OTHER SPECIFIED POSTPROCEDURAL STATES (5) Elevated troponin Assessment/Plan: please see under "acute EKG changes" Code(s): R74.8 - ABNORMAL LEVELS OF OTHER SERUM ENZYMES (6) Acute electrocardiogram changes Assessment/Plan: initial EKG essentially WNL except for possible LVH; subsequent EKG shows mild ST depression and significant T wave inversion V2-4; for repeat in am. Cannot r/o NSTEMI (elevated TNI, EKG changes); ECHO shows normal LVEF, no regional wall motion abnormalites;mild LAE. Pt presently has no chest pain or dyspnea. Started ASA. On metoprolol. Statin; LDL < 70 mg/dL. Evaluate coronary arteries (stress MIBI) when stable. Code(s): R94.31 - ABNORMAL ELECTROCARDIOGRAM [ECG] [EKG] (7) Anxiety and depression Assessment/Plan: pt has been under a great deal of physical and emotional stress over the past year, both from her own health and well as that of her sister. She is onmultiple medications for this condition. Code(s): F41.9 - ANXIETY DISORDER, UNSPECIFIED; F32.9 - MAJOR DEPRESSIVE DISORDER, SINGLE EPISODE, UNSPECIFIED
[2017-11-19] MEDS ORDERED: PT OWN MED DRAWER 7, Y5N ONE ×2 (06:18→10:58)
[2017-11-19] MEDS: REPAGLINIDE 0.5 MG TABLET (FP) PO SCH ×3 (06:32→16:48)
[2017-11-19] MEDS: busPIRone HCL 5 MG TABLET PO SCH ×2 (09:02→21:18)
[2017-11-19] MEDS: CALCIUM 500MG/VIT-D 200 UNITS COMBO TABLET (FP) PO SCH ×2 (09:02→21:18)
[2017-11-19] MEDS: METOPROLOL TARTRATE 50 MG TABLET (FP) PO SCH ×2 (09:02→21:18)
[2017-11-19] MEDS: SERTRALINE HCL 50 MG TABLET (FP) PO SCH (09:02)
[2017-11-19] MEDS: ASPIRIN COATED 81 MG TABLET.EC PO SCH (09:02)
--- NOTE | 2017-11-19 12:29 | DS ---
Physical Exam: SUBJECTIVE: Patient seen and examined OBJECTIVE: Vital Signs Period Temp Pulse Resp BP Sys/Beckwith Pulse Ox Last 24 Hr 97.4 F-98.4 F 66-78 16-20 125-139/66-74 97-98 PHYSICAL EXAM GENERAL: The patient is awake, alert, and fully oriented, in no acute distress. HEAD: Normal with no signs of trauma. EYES: PERRL, extraocular movements intact, sclera anicteric, conjunctiva clear. ENT: Ears normal, nares patent, oropharynx clear without exudates, moist mucous membranes. NECK: Trachea midline, full range of motion, supple. LUNGS: Breath sounds equal, clear to auscultation bilaterally, no wheezes, no crackles, no accessory muscle use. HEART: Regular rate and rhythm, S1, S2 without murmur, rub or gallop. ABDOMEN: Soft, nontender, nondistended, normoactive bowel sounds, no guarding, no rebound, no hepatosplenomegaly, no masses. EXTREMITIES: 2+ pulses, warm, well-perfused, no edema. NEUROLOGICAL: Cranial nerves II through XII grossly intact. Normal speech, gait not observed. PSYCH: Normal mood, normal affect. SKIN: Warm, dry, normal turgor, no rashes or lesions noted. LABS Laboratory Results - last 24 hr 11/18/17 11/18/17 11/18/17 05:45 07:40 16:37 POC Glucometer 120.08188 195 Creatine Kinase 24 L Troponin I 0.45 H 11/19/17 10:59 POC Glucometer 161 Creatine Kinase Troponin I HOSPITAL COURSE: Date of Admission:11/12/17 Date of Discharge: 11/19/17 Discharge Summary Reason For Visit: LOOSENING OF HARDWARE IN SPINE Current Active Problems Acute electrocardiogram changes (Acute) Anxiety and depression (Acute) Diabetes (Acute) Elevated troponin (Acute) H/O cervical spine surgery (Acute) HTN (hypertension) (Acute) Loosening of hardware in spine (Acute) Condition: Stable - Instructions Diet, Activity, Other Instructions: Please return to the ED for any new, persistent, or worsening symptoms. Follow up with your PCP in 1 week Take home medications as directed on discharge medication list Follow up with Dr. Velasco in 1 week. Follow up with Cardiology in 2 weeks for ECHO and stress test Referrals: Gustavo Velasco MD [Staff Physician] - Disposition: VNS/HOME HEALTH CARE - Home Medications Comprehensive Discharge Medication List: Ambulatory Orders Atorvastatin Ca [Lipitor] 10 mg PO DAILY 10/29/17 Buspirone HCl 15 mg PO BID 10/29/17 Stepan/D3/Mag11/Zinc/Steak Tenderizer Machine/Rui/Bor [Caltrate 600+D Plus Tablet] 1 tab PO BID Metoprolol Succinate 50 mg PO DAILY 10/29/17 Repaglinide [Prandin -] 0.5 mg PO TID 10/29/17 Acetaminophen [Tylenol .Regular Strength -] 650 mg PO Q6H tablet 11/03/17 Sertraline HCl 50 mg PO DAILY 11/12/17 Aspirin Coated [Ecotrin -] 81 mg PO DAILY #30 tablet.ec 11/19/17 - Discharge Referral Referred to [facility] Yes
--- NOTE | 2017-11-19 12:45 | PN ---
Progress Note, Physician History of Present Illness: The patient is a 77 year old female with a significant PMH of hypertension and diabetes who presents to the emergency department for preoperative testing. The patient reports that she recently had cervical surgery done. The patients brother reports that the patient had a doctor follow up today by which she had an x-ray done and it was found that a screw had came loose and dislodged . the patient reports that her surgeon sent her to the ED for direct admission for surgery. The patient denies endorses some itching at site secondary to discomfort. The patient denies any other symptoms. She denies any fever, chills , nausea, vomit, diarrhea, constipation or urinary symptoms. She denies any chest pain, shortness of breath, headache and dizziness. The patient denies any other complaints. - Current Medication List Current Medications: Active Medications Acetaminophen (Tylenol -) 650 mg PO Q6H PRN PRN Reason: PAIN LEVEL 1-3 Aspirin (Ecotrin -) 81 mg PO DAILY [facility] Last Admin: 11/19/17 09:02 Dose: 81 mg Atorvastatin Calcium (Lipitor -) 10 mg PO HS [facility] Last Admin: 11/18/17 22:21 Dose: 10 mg Bisacodyl (Dulcolax Suppository -) 10 mg RC PRN PRN PRN Reason: CONSTIPATION Buspirone HCl (Buspar -) 15 mg PO BID [facility] Last Admin: 11/19/17 09:02 Dose: 15 mg Calcium Carbonate/Cholecalciferol (Os-Stepan 500+D -) 1 tab PO BID [facility] Last Admin: 11/19/17 09:02 Dose: 1 tab Metoprolol Tartrate (Lopressor -) 50 mg PO BID [facility] Last Admin: 11/19/17 09:02 Dose: 50 mg Oxycodone HCl (Roxicodone -) 5 mg PO Q4H PRN PRN Reason: PAIN 4-6; IF TRAMADOL NOT WORK Oxycodone HCl (Roxicodone -) 10 mg PO Q4H PRN PRN Reason: PAIN LEVEL 7 - 10 Repaglinide (Prandin -) 0.5 mg PO TIDAC [facility] Last Admin: 11/19/17 11:00 Dose: 0.5 mg Sertraline HCl (Zoloft -) 50 mg PO DAILY [facility] Last Admin: 11/19/17 09:02 Dose: 50 mg Tramadol HCl (Ultram -) 50 mg PO Q6H PRN PRN Reason: PAIN LEVEL 4-6 - Objective Vital Signs: Vital Signs Temperature 98.0 F 11/19/17 08:54 Pulse Rate 70 11/19/17 08:54 Respiratory Rate 18 11/19/17 08:54 Blood Pressure 125/72 11/19/17 08:54 O2 Sat by Pulse Oximetry (%) 97 11/19/17 08:54 Eyes: Yes: WNL, Conjunctiva Clear, EOM Intact HENT: Yes: WNL, Atraumatic, Normocephalic Neck: Yes: WNL, Supple, Trachea Midline Cardiovascular: Yes: WNL, Regular Rate and Rhythm Respiratory: Yes: WNL, Regular, CTA Bilaterally Gastrointestinal: Yes: WNL, Normal Bowel Sounds Genitourinary: Yes: WNL Musculoskeletal: Yes: WNL Extremities: Yes: WNL Edema: No Integumentary: Yes: WNL Neurological: Yes: WNL, Alert, Oriented ...Motor Strength: WNL Psychiatric: Yes: WNL Labs: CBC, BMP 11/18/17 05:30 11/18/17 05:30 INR, PTT INR 1.24 (0.82-1.09) H 11/13/17 20:10 Assessment/Plan Burst Fracture/Anterior Cervical Hardware Failure s/p Removal Anterior Cervical Hardware/C6 corpectomy/C3, C7 partial corpectomies /C6-C7 discectomy/C3-C7 anterior cervical instrumented fusion/cage reconstruction/primary right jugular vein laceration Acute NSTEMI acute ekg changes HTN Hyperlipidemia DM Plan cont iv heparin bb echo increase asa to 325 if OK by surgery keep ldl below 70 risk stratification MIBI stress test prior to discharge
--- NOTE | 2017-11-19 13:51 | EKG ---
Test Reason : Blood Pressure : / mmHG Vent. Rate : 068 BPM Atrial Rate : 068 BPM P-R Int : 182 ms QRS Dur : 096 ms QT Int : 406 ms P-R-T Axes : 032 000 027 degrees QTc Int : 431 ms NORMAL SINUS RHYTHM MODERATE VOLTAGE CRITERIA FOR LVH, MAY BE NORMAL VARIANT T WAVE ABNORMALITY, CONSIDER ANTERIOR ISCHEMIA ABNORMAL ECG WHEN COMPARED WITH ECG OF 17-NOV-2017 15:03, NO SIGNIFICANT CHANGE WAS FOUND Confirmed by KATINA LYNCH MD ([id number]) on 11/19/2017 1:51:34 PM Referred By: PARDEEP RODRIGUEZ DR Confirmed By:KATINA LYNCH MD
--- NOTE | 2017-11-19 17:58 | PN ---
Physical Exam: SUBJECTIVE: Patient seen and examined. No acute issues, swallowing slowly improving. Will agree to stay for stress test. OBJECTIVE: Vital Signs Period Temp Pulse Resp BP Sys/Beckwith Pulse Ox Last 24 Hr 97.4 F-98.3 F 66-78 18-20 125-139/68-76 97-98 PE Neuro: alert, awake, cn 2-12intact HEENT: anterior neck dressing CDI Pulm: CTAB CV: s1 s2 rrr Abd: s nt nd + bs Ext: warm no le edema Laboratory Results - last 24 hr 11/19/17 11/19/17 10:59 16:47 POC Glucometer 161 111 Active Medications Generic Name Dose Route Start Last Admin Trade Name Freq PRN Reason Stop Dose Admin Acetaminophen 650 mg 11/18/17 09:47 Tylenol - PO Q6H PRN PAIN LEVEL 1-3 Aspirin 81 mg 11/19/17 10:00 11/19/17 09:02 Ecotrin - PO 81 mg DAILY NGA Administration Atorvastatin Calcium 10 mg 11/18/17 22:00 11/18/17 22:21 Lipitor - PO 10 mg HS NGA Administration Bisacodyl 10 mg 11/18/17 09:47 Dulcolax Suppository - RC PRN PRN CONSTIPATION Buspirone HCl 15 mg 11/18/17 10:00 11/19/17 09:02 Buspar - PO 15 mg BID NGA Administration Calcium Carbonate/Cholecalciferol 1 tab 11/18/17 10:00 11/19/17 09:02 Os-Stepan 500+D - PO 1 tab BID NGA Administration Metoprolol Tartrate 50 mg 11/18/17 10:00 11/19/17 09:02 Lopressor - PO 50 mg BID NGA Administration Oxycodone HCl 5 mg 11/18/17 09:47 Roxicodone - PO Q4H PRN PAIN 4-6; IF TRAMADOL NOT WORK Oxycodone HCl 10 mg 11/18/17 09:47 Roxicodone - PO Q4H PRN PAIN LEVEL 7 - 10 Repaglinide 0.5 mg 11/18/17 11:00 11/19/17 16:48 Prandin - PO 0.5 mg TIDAC NGA Administration Sertraline HCl 50 mg 11/19/17 10:00 11/19/17 09:02 Zoloft - PO 50 mg DAILY NGA Administration Tramadol HCl 50 mg 11/18/17 09:47 Ultram - PO Q6H PRN PAIN LEVEL 4-6 Assessment: 77 year old female with phmx HTN, HLD, DM II, cervical spine stenosis and cervical rediculopathy s/p cervical surgery with primary right jugular vein laceration. Plan: 1. s/p Post reconstruction of anterior arthrodesis, repair of jugular vein laceration 11/13 - Continue soft collar - For posterior C3 to C7 instrumented fusion to be planned once stable per ortho - Will go home with VNS 2. NSTEMI, acute - ECHO reviewed - For stress part 1 today, complete wednesday - Restarted low dose asa, on [employer] ac at this time 3. HTN - Controlled - Metoprolol 50mg BID 4. DM II - ISS, BGM ACHS Visit type - Emergency Visit Emergency Visit: Yes ED Registration Date: 11/12/17 Care time: The patient presented to the Emergency Department on the above date and was hospitalized for further evaluation of their emergent condition. - New Patient This patient is new to me today: No - Critical Care Critical Care patient: No
--- NOTE | 2017-11-19 18:02 | PN ---
Progress Note (short form) - Note Progress Note: Patient improving. Feels better No neck or radiculopathic pain. Voice stronger Swallowing normal Neuro at baseline. Awaiting cardiac stress test PLAN D/C planning for Wednesday once medically stabilized D/C home with services See in the office in 10 days Will decide on posterior fixation
[2017-11-19] MEDS: ACETAMINOPHEN 325 MG TABLET (FP) PO PRN (18:44)
[2017-11-19] MEDS: ATORVASTATIN CA 10 MG TABLET (FP) PO SCH (21:18)
[2017-11-20] MEDS: REPAGLINIDE 0.5 MG TABLET (FP) PO SCH ×3 (06:15→16:30)
[2017-11-20] MEDS: busPIRone HCL 5 MG TABLET PO SCH ×2 (09:06→22:45)
[2017-11-20] MEDS: SERTRALINE HCL 50 MG TABLET (FP) PO SCH (09:06)
[2017-11-20] MEDS: CALCIUM 500MG/VIT-D 200 UNITS COMBO TABLET (FP) PO SCH ×2 (09:07→22:45)
[2017-11-20] MEDS: METOPROLOL TARTRATE 50 MG TABLET (FP) PO SCH ×2 (09:07→22:45)
[2017-11-20] MEDS: ASPIRIN COATED 81 MG TABLET.EC PO SCH (09:07)
--- NOTE | 2017-11-20 10:21 | PN ---
Progress Note, Physician Chief Complaint: Cardiology f/u for Drs. Haque/Alejandro: History of Present Illness: Feels well, denies chest pain or dyspnea. - Current Medication List Current Medications: Active Medications Acetaminophen (Tylenol -) 650 mg PO Q6H PRN PRN Reason: PAIN LEVEL 1-3 Last Admin: 11/19/17 18:44 Dose: 650 mg Aspirin (Ecotrin -) 81 mg PO DAILY [facility] Last Admin: 11/20/17 09:07 Dose: 81 mg Atorvastatin Calcium (Lipitor -) 10 mg PO HS [facility] Last Admin: 11/19/17 21:18 Dose: 10 mg Bisacodyl (Dulcolax Suppository -) 10 mg RC PRN PRN PRN Reason: CONSTIPATION Buspirone HCl (Buspar -) 15 mg PO BID [facility] Last Admin: 11/20/17 09:06 Dose: 15 mg Calcium Carbonate/Cholecalciferol (Os-Stepan 500+D -) 1 tab PO BID [facility] Last Admin: 11/20/17 09:07 Dose: 1 tab Metoprolol Tartrate (Lopressor -) 50 mg PO BID [facility] Last Admin: 11/20/17 09:07 Dose: 50 mg Oxycodone HCl (Roxicodone -) 5 mg PO Q4H PRN PRN Reason: PAIN 4-6; IF TRAMADOL NOT WORK Oxycodone HCl (Roxicodone -) 10 mg PO Q4H PRN PRN Reason: PAIN LEVEL 7 - 10 Repaglinide (Prandin -) 0.5 mg PO TIDAC [facility] Last Admin: 11/20/17 06:15 Dose: 0.5 mg Sertraline HCl (Zoloft -) 50 mg PO DAILY [facility] Last Admin: 11/20/17 09:06 Dose: 50 mg Tramadol HCl (Ultram -) 50 mg PO Q6H PRN PRN Reason: PAIN LEVEL 4-6 - Objective Vital Signs: Vital Signs Temperature 97.5 F L 11/20/17 05:34 Pulse Rate 69 11/20/17 05:34 Respiratory Rate 20 11/20/17 03:00 Blood Pressure 122/70 11/20/17 05:34 O2 Sat by Pulse Oximetry (%) 99 11/19/17 19:52 Constitutional: Yes: No Distress, Calm, Thin Neck: Yes: Other (Cervical collar in place) Cardiovascular: Yes: Regular Rate and Rhythm Respiratory: Yes: Regular, CTA Bilaterally Gastrointestinal: Yes: Normal Bowel Sounds, Soft Edema: No Labs: CBC, BMP 11/18/17 05:30 11/18/17 05:30 INR, PTT INR 1.24 (0.82-1.09) H 11/13/17 20:10 - ....Imaging EKG: Report Reviewed (Tele: SB) Problem List - Problems (1) NSTEMI (non-ST elevated myocardial infarction) Code(s): I21.4 - NON-ST ELEVATION (NSTEMI) MYOCARDIAL INFARCTION (2) Acute electrocardiogram changes Code(s): R94.31 - ABNORMAL ELECTROCARDIOGRAM [ECG] [EKG] (3) Diabetes Code(s): E11.9 - TYPE 2 DIABETES MELLITUS WITHOUT COMPLICATIONS Qualifiers: Diabetes mellitus type: type 2 (4) Elevated troponin Code(s): R74.8 - ABNORMAL LEVELS OF OTHER SERUM ENZYMES (5) HTN (hypertension) Code(s): I10 - ESSENTIAL (PRIMARY) HYPERTENSION Qualifiers: Hypertension type: essential hypertension Qualified Code(s): I10 - Essential (primary) hypertension (6) Loosening of hardware in spine Code(s): T84.498A - [facility] COMPL OF INTERNAL ORTH DEVICES, IMPLNT AND GRAFTS, INIT Assessment/Plan 11/16/2017 Echo: Normal LV size and fxn, sigmoid septum, normal RV size and fxn , mild LAE, mild MR 1. Burst Fracture/Anterior Cervical Hardware Failure s/p Removal Anterior Cervical Hardware/C6 corpectomy/C3, C7 partial corpectomies/C6-C7 discectomy/C3- C7 anterior cervical instrumented fusion/cage reconstruction/primary right jugular vein laceration 2. CAD post NSTEMI with acute ekg changes 3. HTN 4. Hyperlipidemia 5. DM Plan 1. Trops downtrending 2. Continue ASA 81 qd, Lipitor 10 qhs, Lopressor 50 bid 3. Await risk stratification MIBI stress test Wednesday prior to discharge
[2017-11-20] MEDS ORDERED: PT OWN MED DRAWER 7, Y5N ONE (11:34)
[2017-11-20] MEDS: BISACODYL 10 MG SUPP.RECT RC PRN (13:17)
--- NOTE | 2017-11-20 15:54 | PN ---
Physical Exam: SUBJECTIVE: Patient seen and examined. No issues, family helping feed pt at bedside. OBJECTIVE: Vital Signs Period Temp Pulse Resp BP Sys/Beckwith Pulse Ox Last 24 Hr 97.1 F-98.8 F 59-76 20-20 108-126/56-76 99 PE Neuro: alert, awake, cn 2-12intact HEENT: anterior neck dressing CDI Pulm: CTAB CV: s1 s2 rrr Abd: s nt nd + bs Ext: warm no le edema Laboratory Results - last 24 hr 11/19/17 11/19/17 11/20/17 16:47 20:46 05:32 POC Glucometer 111 119 133 Active Medications Generic Name Dose Route Start Last Admin Trade Name Freq PRN Reason Stop Dose Admin Acetaminophen 650 mg 11/18/17 09:47 11/19/17 18:44 Tylenol - PO 650 mg Q6H PRN Administration PAIN LEVEL 1-3 Aspirin 81 mg 11/19/17 10:00 11/20/17 09:07 Ecotrin - PO 81 mg DAILY NGA Administration Atorvastatin Calcium 10 mg 11/18/17 22:00 11/19/17 21:18 Lipitor - PO 10 mg HS NGA Administration Bisacodyl 10 mg 11/18/17 09:47 11/20/17 13:17 Dulcolax Suppository - RC 10 mg PRN PRN Administration CONSTIPATION Buspirone HCl 15 mg 11/18/17 10:00 11/20/17 09:06 Buspar - PO 15 mg BID NGA Administration Calcium Carbonate/Cholecalciferol 1 tab 11/18/17 10:00 11/20/17 09:07 Os-Stepan 500+D - PO 1 tab BID NGA Administration Metoprolol Tartrate 50 mg 11/18/17 10:00 11/20/17 09:07 Lopressor - PO 50 mg BID NGA Administration Oxycodone HCl 5 mg 11/18/17 09:47 Roxicodone - PO Q4H PRN PAIN 4-6; IF TRAMADOL NOT WORK Oxycodone HCl 10 mg 11/18/17 09:47 Roxicodone - PO Q4H PRN PAIN LEVEL 7 - 10 Repaglinide 0.5 mg 11/18/17 11:00 11/20/17 11:35 Prandin - PO 0.5 mg TIDAC NGA Administration Sertraline HCl 50 mg 11/19/17 10:00 11/20/17 09:06 Zoloft - PO 50 mg DAILY NGA Administration Tramadol HCl 50 mg 11/18/17 09:47 Ultram - PO Q6H PRN PAIN LEVEL 4-6 Assessment: 77 year old female with phmx HTN, HLD, DM II, cervical spine stenosis and cervical rediculopathy s/p cervical surgery with primary right jugular vein laceration. Plan: 1. s/p Post reconstruction of anterior arthrodesis, repair of jugular vein laceration 11/13 - Continue soft collar - For posterior C3 to C7 instrumented fusion to be planned once stable per ortho - Will go home with VNS 2. NSTEMI, acute - ECHO reviewed - For stress part 1 Wednesday, complete wednesday - Restarted low dose asa, on usp ac at this time 3. HTN - Controlled - Metoprolol 50mg BID 4. DM II - ISS, BGM ACHS Visit type - Emergency Visit Emergency Visit: Yes ED Registration Date: 11/12/17 Care time: The patient presented to the Emergency Department on the above date and was hospitalized for further evaluation of their emergent condition. - New Patient This patient is new to me today: No - Critical Care Critical Care patient: No
[2017-11-20] MEDS: ATORVASTATIN CA 10 MG TABLET (FP) PO SCH (22:45)
[2017-11-21] MEDS: REPAGLINIDE 0.5 MG TABLET (FP) PO SCH ×3 (06:30→17:16)
[2017-11-21] MEDS: busPIRone HCL 5 MG TABLET PO SCH ×2 (09:48→22:15)
[2017-11-21] MEDS: METOPROLOL TARTRATE 50 MG TABLET (FP) PO SCH ×2 (09:49→22:15)
[2017-11-21] MEDS: ASPIRIN COATED 81 MG TABLET.EC PO SCH (09:49)
[2017-11-21] MEDS: SERTRALINE HCL 50 MG TABLET (FP) PO SCH (09:49)
[2017-11-21] MEDS: CALCIUM 500MG/VIT-D 200 UNITS COMBO TABLET (FP) PO SCH ×2 (09:49→22:15)
--- NOTE | 2017-11-21 10:39 | PN ---
Progress Note, Physician Chief Complaint: Cardiology f/u for Drs. Haque/Alejandro: History of Present Illness: Feels well, denies chest pain or dyspnea. - Current Medication List Current Medications: Active Medications Acetaminophen (Tylenol -) 650 mg PO Q6H PRN PRN Reason: PAIN LEVEL 1-3 Last Admin: 11/19/17 18:44 Dose: 650 mg Aspirin (Ecotrin -) 81 mg PO DAILY [facility] Last Admin: 11/21/17 09:49 Dose: 81 mg Atorvastatin Calcium (Lipitor -) 10 mg PO HS [facility] Last Admin: 11/20/17 22:45 Dose: 10 mg Bisacodyl (Dulcolax Suppository -) 10 mg RC PRN PRN PRN Reason: CONSTIPATION Last Admin: 11/20/17 13:17 Dose: 10 mg Buspirone HCl (Buspar -) 15 mg PO BID [facility] Last Admin: 11/21/17 09:48 Dose: 15 mg Calcium Carbonate/Cholecalciferol (Os-Stepan 500+D -) 1 tab PO BID [facility] Last Admin: 11/21/17 09:49 Dose: 1 tab Metoprolol Tartrate (Lopressor -) 50 mg PO BID [facility] Last Admin: 11/21/17 09:49 Dose: 50 mg Repaglinide (Prandin -) 0.5 mg PO TIDAC [facility] Last Admin: 11/21/17 06:30 Dose: 0.5 mg Sertraline HCl (Zoloft -) 50 mg PO DAILY [facility] Last Admin: 11/21/17 09:49 Dose: 50 mg - Objective Vital Signs: Vital Signs Temperature 98.2 F 11/21/17 06:00 Pulse Rate 78 11/21/17 06:00 Respiratory Rate 20 11/21/17 06:00 Blood Pressure 117/75 11/21/17 06:00 O2 Sat by Pulse Oximetry (%) 99 11/20/17 21:00 Constitutional: Yes: No Distress, Calm, Thin Neck: Yes: Other (Soft cervical collar on) Cardiovascular: Yes: Regular Rate and Rhythm Respiratory: Yes: Regular, CTA Bilaterally Gastrointestinal: Yes: Normal Bowel Sounds, Soft Edema: No Labs: CBC, BMP 11/18/17 05:30 11/18/17 05:30 INR, PTT INR 1.24 (0.82-1.09) H 11/13/17 20:10 - ....Imaging EKG: Report Reviewed (Tele: NSR) Problem List - Problems (1) NSTEMI (non-ST elevated myocardial infarction) Code(s): I21.4 - NON-ST ELEVATION (NSTEMI) MYOCARDIAL INFARCTION (2) Acute electrocardiogram changes Code(s): R94.31 - ABNORMAL ELECTROCARDIOGRAM [ECG] [EKG] (3) Diabetes Code(s): E11.9 - TYPE 2 DIABETES MELLITUS WITHOUT COMPLICATIONS Qualifiers: Diabetes mellitus type: type 2 (4) Elevated troponin Code(s): R74.8 - ABNORMAL LEVELS OF OTHER SERUM ENZYMES (5) HTN (hypertension) Code(s): I10 - ESSENTIAL (PRIMARY) HYPERTENSION Qualifiers: Hypertension type: essential hypertension Qualified Code(s): I10 - Essential (primary) hypertension (6) Loosening of hardware in spine Code(s): T84.498A - [facility] COMPL OF INTERNAL ORTH DEVICES, IMPLNT AND GRAFTS, INIT Assessment/Plan 11/16/2017 Echo: Normal LV size and fxn, sigmoid septum, normal RV size and fxn , mild LAE, mild MR 1. Burst Fracture/Anterior Cervical Hardware Failure s/p Removal Anterior Cervical Hardware/C6 corpectomy/C3, C7 partial corpectomies/C6-C7 discectomy/C3- C7 anterior cervical instrumented fusion/cage reconstruction/primary right jugular vein laceration 2. CAD post NSTEMI with acute ekg changes 3. HTN 4. Hyperlipidemia 5. DM Plan 1. Trops downtrending 2. Continue ASA 81 qd, Lipitor 10 qhs, Lopressor 50 bid 3. Await risk stratification MIBI stress test Wednesday prior to discharge
--- NOTE | 2017-11-21 12:05 | PN ---
Physical Exam: SUBJECTIVE: Patient seen and examined. Pt is oob to chair, no issues, family at beside. Eager to go home. OBJECTIVE: Vital Signs Period Temp Pulse Resp BP Sys/Beckwith Pulse Ox Last 24 Hr 98.0 F-98.6 F 66-78 18-20 107-141/61-80 99 PE Neuro: alert, awake, cn 2-12intact HEENT: anterior neck dressing CDI, soft collar placed Pulm: CTAB CV: s1 s2 rrr Abd: s nt nd + bs Ext: warm no le edema Laboratory Results - last 24 hr 11/21/17 06:29 POC Glucometer 109 Active Medications Generic Name Dose Route Start Last Admin Trade Name Freq PRN Reason Stop Dose Admin Acetaminophen 650 mg 11/18/17 09:47 11/19/17 18:44 Tylenol - PO 650 mg Q6H PRN Administration PAIN LEVEL 1-3 Aspirin 81 mg 11/19/17 10:00 11/21/17 09:49 Ecotrin - PO 81 mg DAILY NGA Administration Atorvastatin Calcium 10 mg 11/18/17 22:00 11/20/17 22:45 Lipitor - PO 10 mg HS NGA Administration Bisacodyl 10 mg 11/18/17 09:47 11/20/17 13:17 Dulcolax Suppository - RC 10 mg PRN PRN Administration CONSTIPATION Buspirone HCl 15 mg 11/18/17 10:00 11/21/17 09:48 Buspar - PO 15 mg BID NGA Administration Calcium Carbonate/Cholecalciferol 1 tab 11/18/17 10:00 11/21/17 09:49 Os-Stepan 500+D - PO 1 tab BID NGA Administration Metoprolol Tartrate 50 mg 11/18/17 10:00 11/21/17 09:49 Lopressor - PO 50 mg BID NGA Administration Repaglinide 0.5 mg 11/18/17 11:00 11/21/17 06:30 Prandin - PO 0.5 mg TIDAC NGA Administration Sertraline HCl 50 mg 11/19/17 10:00 11/21/17 09:49 Zoloft - PO 50 mg DAILY NGA Administration Assessment: 77 year old female with phmx HTN, HLD, DM II, cervical spine stenosis and cervical rediculopathy s/p cervical surgery with primary right jugular vein laceration. Plan: 1. s/p Post reconstruction of anterior arthrodesis, repair of jugular vein laceration 11/13 - Continue soft collar - For posterior C3 to C7 instrumented fusion to be planned once stable per ortho - Will go home with VNS 2. NSTEMI, acute - ECHO reviewed - For stress part 1 Wednesday, complete Wednesday - Restarted low dose asa, on custodial ac at this time - NPO after midnight 3. HTN - Controlled - Metoprolol 50mg BID 4. DM II - ISS, BGM ACHS Visit type - Emergency Visit Emergency Visit: Yes ED Registration Date: 11/12/17 Care time: The patient presented to the Emergency Department on the above date and was hospitalized for further evaluation of their emergent condition. - New Patient This patient is new to me today: No - Critical Care Critical Care patient: No
[2017-11-21] MEDS ORDERED: PT OWN MED DRAWER 7, Y5N ONE ×2 (13:47→19:19)
[2017-11-21] MEDS: ACETAMINOPHEN 325 MG TABLET (FP) PO PRN (13:55)
[2017-11-21] MEDS: ATORVASTATIN CA 10 MG TABLET (FP) PO SCH (22:15)
[2017-11-22] MEDS: REPAGLINIDE 0.5 MG TABLET (FP) PO SCH ×3 (06:41→17:28)
--- NOTE | 2017-11-22 08:35 | PN ---
Progress Note (short form) - Note Progress Note: Doing well Awaiting final part of the stress test Wound dry Voice normal Neuro at baseline PLAN If all well to be D/Bridger home See post op in the office 10 days
[2017-11-22] MEDS ORDERED: REGADENOSON 0.4 MG/5 ML PRE-FILLED SYRINGE IVPUSH ONE ×2 (09:30→10:26)
[2017-11-22] MEDS: METOPROLOL TARTRATE 50 MG TABLET (FP) PO SCH ×2 (12:52→22:06)
[2017-11-22] MEDS: busPIRone HCL 5 MG TABLET PO SCH ×2 (12:53→22:06)
[2017-11-22] MEDS: CALCIUM 500MG/VIT-D 200 UNITS COMBO TABLET (FP) PO SCH ×2 (13:01→22:06)
[2017-11-22] MEDS: ASPIRIN COATED 81 MG TABLET.EC PO SCH (13:01)
[2017-11-22] MEDS: SERTRALINE HCL 50 MG TABLET (FP) PO SCH (13:01)
--- NOTE | 2017-11-22 13:34 | PN ---
Progress Note, Physician History of Present Illness: The patient is a 77 year old female with a significant PMH of hypertension and diabetes who presents to the emergency department for preoperative testing. The patient reports that she recently had cervical surgery done. The patients brother reports that the patient had a doctor follow up today by which she had an x-ray done and it was found that a screw had came loose and dislodged . the patient reports that her surgeon sent her to the ED for direct admission for surgery. The patient denies endorses some itching at site secondary to discomfort. The patient denies any other symptoms. She denies any fever, chills , nausea, vomit, diarrhea, constipation or urinary symptoms. She denies any chest pain, shortness of breath, headache and dizziness. The patient denies any other complaints. - Current Medication List Current Medications: Active Medications Acetaminophen (Tylenol -) 650 mg PO Q6H PRN PRN Reason: PAIN LEVEL 1-3 Last Admin: 11/21/17 13:55 Dose: 650 mg Aspirin (Ecotrin -) 81 mg PO DAILY [facility] Last Admin: 11/22/17 13:01 Dose: 81 mg Atorvastatin Calcium (Lipitor -) 10 mg PO HS [facility] Last Admin: 11/21/17 22:15 Dose: 10 mg Bisacodyl (Dulcolax Suppository -) 10 mg RC PRN PRN PRN Reason: CONSTIPATION Last Admin: 11/20/17 13:17 Dose: 10 mg Buspirone HCl (Buspar -) 15 mg PO BID [facility] Last Admin: 11/22/17 12:53 Dose: 15 mg Calcium Carbonate/Cholecalciferol (Os-Stepan 500+D -) 1 tab PO BID [facility] Last Admin: 11/22/17 13:01 Dose: 1 tab Metoprolol Tartrate (Lopressor -) 50 mg PO BID [facility] Last Admin: 11/22/17 12:52 Dose: 50 mg Repaglinide (Prandin -) 0.5 mg PO TIDAC [facility] Last Admin: 11/22/17 13:01 Dose: 0.5 mg Sertraline HCl (Zoloft -) 50 mg PO DAILY [facility] Last Admin: 11/22/17 13:01 Dose: 50 mg - Objective Vital Signs: Vital Signs Temperature 97.3 F L 11/22/17 09:00 Pulse Rate 67 11/22/17 09:00 Respiratory Rate 20 07/23/18 09:00 Blood Pressure 105/71 11/22/17 09:00 O2 Sat by Pulse Oximetry (%) 96 11/21/17 21:00 Eyes: Yes: WNL, Conjunctiva Clear, EOM Intact HENT: Yes: WNL, Atraumatic, Normocephalic Neck: Yes: WNL, Supple, Trachea Midline Cardiovascular: Yes: WNL, Regular Rate and Rhythm Respiratory: Yes: WNL, Regular, CTA Bilaterally Gastrointestinal: Yes: WNL, Normal Bowel Sounds Genitourinary: Yes: WNL Musculoskeletal: Yes: WNL Extremities: Yes: WNL Edema: No Integumentary: Yes: WNL Neurological: Yes: WNL, Alert, Oriented ...Motor Strength: WNL Psychiatric: Yes: WNL Labs: CBC, BMP 11/18/17 05:30 11/18/17 05:30 INR, PTT INR 1.24 (0.82-1.09) H 11/13/17 20:10 Assessment/Plan Burst Fracture/Anterior Cervical Hardware Failure s/p Removal Anterior Cervical Hardware/C6 corpectomy/C3, C7 partial corpectomies /C6-C7 discectomy/C3-C7 anterior cervical instrumented fusion/cage reconstruction/primary right jugular vein laceration Acute NSTEMI acute ekg changes HTN Hyperlipidemia DM Plan strongly positive MIVI stv for anterio apical septal ischemia restart iv heparin bb asa 81 add plavix OK by surgery keep ldl below 70 c cath when vascular surgery and neurosurgery clears patient for DAPT d/w dr. garcia and dr. Avery
[2017-11-22] MEDS ORDERED: HEPARIN NA (PORCINE) 5,000 UNITS/ML 1ML VIAL IVPUSH PRN ×2 (13:37)
[2017-11-22] MEDS ORDERED: PT OWN MED DRAWER 7, Y5N ONE ×2 (14:34→17:24)
[2017-11-22] MEDS: HEPARIN - 25,000 UNIT in SODIUM CHLORIDE 495 ML IV SCH (14:45)
--- NOTE | 2017-11-22 16:52 | PN ---
Physical Exam: SUBJECTIVE: Patient seen and examined. No acute cp, sob, palpitations. OBJECTIVE: Vital Signs Period Temp Pulse Resp BP Sys/Beckwith Pulse Ox Last 24 Hr 97.3 F-98.3 F 63-103 20-20 96-135/59-75 96 PE Neuro: alert, awake, cn 2-12intact HEENT: anterior neck dressing CDI, soft collar placed Pulm: CTAB CV: s1 s2 rrr Abd: s nt nd + bs Ext: warm no le edema Laboratory Results - last 24 hr 11/21/17 11/22/17 17:14 05:40 POC Glucometer 90 112 Active Medications Generic Name Dose Route Start Last Admin Trade Name Freq PRN Reason Stop Dose Admin Acetaminophen 650 mg 11/18/17 09:47 11/21/17 13:55 Tylenol - PO 650 mg Q6H PRN Administration PAIN LEVEL 1-3 Aspirin 81 mg 11/19/17 10:00 11/22/17 13:01 Ecotrin - PO 81 mg DAILY NGA Administration Atorvastatin Calcium 10 mg 11/18/17 22:00 11/21/17 22:15 Lipitor - PO 10 mg HS NGA Administration Bisacodyl 10 mg 11/18/17 09:47 11/20/17 13:17 Dulcolax Suppository - RC 10 mg PRN PRN Administration CONSTIPATION Buspirone HCl 15 mg 11/18/17 10:00 11/22/17 12:53 Buspar - PO 15 mg BID NGA Administration Calcium Carbonate/Cholecalciferol 1 tab 11/18/17 10:00 11/22/17 13:01 Os-Stepan 500+D - PO 1 tab BID NGA Administration Clopidogrel Bisulfate 75 mg 11/22/17 17:00 Plavix - PO DAILY [facility] Heparin Sodium (Porcine) 1,000 unit 11/22/17 13:37 Heparin - IVPUSH PRN PRN Heparin Heparin Sodium (Porcine) 5,000 unit 11/22/17 13:37 Heparin - IVPUSH PRN PRN Heparin Heparin Sodium (Porcine) 25, 500 mls @ 16 mls/hr 11/22/17 13:45 000 unit/ Sodium Chloride IV TITR NGA Protocol 800 UNIT/HR Metoprolol Tartrate 50 mg 11/18/17 10:00 11/22/17 12:52 Lopressor - PO 50 mg BID NGA Administration Repaglinide 0.5 mg 11/18/17 11:00 11/22/17 13:01 Prandin - PO 0.5 mg TIDAC NGA Administration Sertraline HCl 50 mg 11/19/17 10:00 11/22/17 13:01 Zoloft - PO 50 mg DAILY NGA Administration Assessment: 77 year old female with phmx HTN, HLD, DM II, cervical spine stenosis and cervical rediculopathy s/p cervical surgery with primary right jugular vein laceration. Plan: 1. s/p Post reconstruction of anterior arthrodesis, repair of jugular vein laceration 11/13 - Continue soft collar - For posterior C3 to C7 instrumented fusion to be planned once stable per ortho 2. NSTEMI, acute - Positive Stress for anterior apical septal ischemia - Restart heparin gtt - Start dual anti platelet therapy, discussed with ortho and vascular; no issues - Will be transferred later this week for cath at [place] 3. HTN - Controlled - Metoprolol 50mg BID 4. DM II - ISS, BGM ACHS Visit type - Emergency Visit Emergency Visit: Yes ED Registration Date: 11/12/17 Care time: The patient presented to the Emergency Department on the above date and was hospitalized for further evaluation of their emergent condition. - New Patient This patient is new to me today: No - Critical Care Critical Care patient: No
[2017-11-22] MEDS: CLOPIDOGREL BISULFATE 75 MG TABLET (FP) PO SCH (17:28)
[2017-11-22] MEDS: ATORVASTATIN CA 10 MG TABLET (FP) PO SCH (22:06)
[2017-11-23] MEDS ORDERED: PT OWN MED DRAWER 7, Y5N ONE ×2 (06:23→12:01)
[2017-11-23 06:33] LABS: BASO % 0.8 % (0-2.0); EOS % 2.6 % (0-4.5); HEMATOCRIT 35.3 % (32.4-45.2); LYMPH % 25.7 % (8-40); MCH 31.7 pg (25.7-33.7); MCHC 33.9 g/dl (32.0-36.0); MEAN CELL VOLUME 93.5 fl (80-96); MEAN PLT VOLUME 8.6 fl (7.5-11.1); MONO % 8.9 % (3.8-10.2); PLATELET COUNT 295 K/MM3 (134-434); RBC 3.78 M/mm3 (3.60-5.2); RDW 13.2 % (11.6-15.6); WHITE BLOOD COUNT 5.2 K/mm3 (4.0-10.0)
[2017-11-23] MEDS: REPAGLINIDE 0.5 MG TABLET (FP) PO SCH ×3 (06:41→16:30)
[2017-11-23 07:11] LABS: ANION GAP 10 (8-16); BLOOD UREA NITROGEN 11 mg/dL (7-18); CALCIUM 9.1 mg/dL (8.5-10.1); CHLORIDE 104 mmol/L (98-107); CO2 25 mmol/L (21-32); CREATININE 0.5 mg/dL (0.55-1.02); GLUCOSE,RANDOM 108 mg/dL (74-106); POTASSIUM 4.1 mmol/L (3.5-5.1); SODIUM 139 mmol/L (136-145)
[2017-11-23] MEDS: METOPROLOL TARTRATE 50 MG TABLET (FP) PO SCH ×2 (09:27→21:51)
[2017-11-23] MEDS: ASPIRIN COATED 81 MG TABLET.EC PO SCH (09:27)
[2017-11-23] MEDS: CALCIUM 500MG/VIT-D 200 UNITS COMBO TABLET (FP) PO SCH ×2 (09:27→21:51)
[2017-11-23] MEDS: SERTRALINE HCL 50 MG TABLET (FP) PO SCH (09:27)
[2017-11-23] MEDS: busPIRone HCL 5 MG TABLET PO SCH ×2 (09:27→21:50)
[2017-11-23] MEDS: CLOPIDOGREL BISULFATE 75 MG TABLET (FP) PO SCH (09:29)
--- NOTE | 2017-11-23 12:40 | PN ---
Progress Note, Physician Chief Complaint: Pt OOB in chair. No chest pain, dyspnea, dizziness, or palpitations. Siblings are at bedside. History of Present Illness: The patient is a 77 year old white female (jens Cross), with a significant PMH of hypertension and diabetes, who presents to the emergency department for preoperative testing. The patient reports that she recently had cervical surgery done. The patients brother reports that the patient had a doctor follow up today by which she had an x-ray done and it was found that a screw had came loose and dislodged . the patient reports that her surgeon sent her to the ED for direct admission for surgery. The patient denies endorses some itching at site secondary to discomfort. The patient denies any other symptoms. She denies any fever, chills, nausea, vomit, diarrhea, constipation or urinary symptoms. She denies any chest pain, shortness of breath, headache and dizziness. The patient denies any other complaints. Pt has now been found to have EKG changes and TNI elevation, and cardiology evaluation was called. - Current Medication List Current Medications: Active Medications Acetaminophen (Tylenol -) 650 mg PO Q6H PRN PRN Reason: PAIN LEVEL 1-3 Last Admin: 11/21/17 13:55 Dose: 650 mg Aspirin (Ecotrin -) 81 mg PO DAILY [facility] Last Admin: 11/23/17 09:27 Dose: 81 mg Atorvastatin Calcium (Lipitor -) 10 mg PO HS [facility] Last Admin: 11/22/17 22:06 Dose: 10 mg Bisacodyl (Dulcolax Suppository -) 10 mg RC PRN PRN PRN Reason: CONSTIPATION Last Admin: 11/20/17 13:17 Dose: 10 mg Buspirone HCl (Buspar -) 15 mg PO BID [facility] Last Admin: 11/23/17 09:27 Dose: 15 mg Calcium Carbonate/Cholecalciferol (Os-Tsepan 500+D -) 1 tab PO BID [facility] Last Admin: 11/23/17 09:27 Dose: 1 tab Clopidogrel Bisulfate (Plavix -) 75 mg PO DAILY [facility] Last Admin: 11/23/17 09:29 Dose: 75 mg Heparin Sodium (Porcine) (Heparin -) 1,000 unit IVPUSH PRN PRN PRN Reason: Heparin Heparin Sodium (Porcine) (Heparin -) 5,000 unit IVPUSH PRN PRN PRN Reason: Heparin Heparin Sodium (Porcine) 25, (000 unit/ Sodium Chloride) 500 mls @ 16 mls/hr IV TITR [facility]; Protocol Last Titration: 11/22/17 22:12 Dose: 800 unit/hr, 16 mls/hr Metoprolol Tartrate (Lopressor -) 50 mg PO BID [facility] Last Admin: 11/23/17 09:27 Dose: 50 mg Repaglinide (Prandin -) 0.5 mg PO TIDAC [facility] Last Admin: 11/23/17 12:01 Dose: 0.5 mg Sertraline HCl (Zoloft -) 50 mg PO DAILY [facility] Last Admin: 11/23/17 09:27 Dose: 50 mg - Objective Vital Signs: Vital Signs Temperature 97.8 F 11/23/17 05:42 Pulse Rate 60 11/23/17 05:42 Respiratory Rate 20 11/23/17 05:42 Blood Pressure 125/60 11/23/17 05:42 O2 Sat by Pulse Oximetry (%) 97 11/22/17 21:00 Constitutional: Yes: Calm Eyes: Yes: WNL HENT: Yes: WNL Neck: Yes: Decreased ROM Cardiovascular: Yes: Regular Rate and Rhythm, S1, S2 Respiratory: Yes: WNL Gastrointestinal: Yes: Soft ...Rectal Exam: Yes: Deferred Genitourinary: No: Anuria Breast(s): Yes: WNL Musculoskeletal: Yes: Muscle Weakness Extremities: Yes: Cool, Other (left elbow surgical scar) Edema: No Peripheral Pulses WNL: No Peripheral Pulses: Left Doralis Pedis: 1+, Right Dorsalis Pedis: 1+ Wound/Incision: Yes: Clean/Dry Neurological: Yes: Alert, Oriented, Weakness Psychiatric: Yes: WNL Labs: CBC, BMP 11/23/17 05:30 11/23/17 05:30 INR, PTT INR 1.24 (0.82-1.09) H 11/13/17 20:10 Abnormal Lab Results 11/23/17 11/23/17 05:30 18:00 PTT (Actin FS) 69.7 H Creatinine 0.5 L Random Glucose 108 H Problem List - Problems (1) Diabetes Assessment/Plan: by history;? on medications Code(s): E11.9 - TYPE 2 DIABETES MELLITUS WITHOUT COMPLICATIONS Qualifiers: Diabetes mellitus type: type 2 (2) HTN (hypertension) Code(s): I10 - ESSENTIAL (PRIMARY) HYPERTENSION Qualifiers: Hypertension type: essential hypertension Qualified Code(s): I10 - Essential (primary) hypertension (3) Loosening of hardware in spine Code(s): T84.498A - [facility] COMPL OF INTERNAL ORTH DEVICES, IMPLNT AND GRAFTS, INIT (4) H/O cervical spine surgery Assessment/Plan: s/u cervical spine and subsequent jugular vein surgeries; f/u with surgeon Code(s): Z98.890 - OTHER SPECIFIED POSTPROCEDURAL STATES (5) Elevated troponin Assessment/Plan: please see under "acute EKG changes" Code(s): R74.8 - ABNORMAL LEVELS OF OTHER SERUM ENZYMES (6) Acute electrocardiogram changes Assessment/Plan: Elevated TNI during admission, with acute ST depression. Stress MIBI (Lexiscan) showed large area of severe anteorapical and septal ischemia, with normal LVEF. Continue metoprolol, atorvastatin, ASA and clopidogrel. NTG s/l prn for chest pain (no complaints until now). Pt for coronary angiogram. Discussed her present condition in detail with her and her siblings. Code(s): R94.31 - ABNORMAL ELECTROCARDIOGRAM [ECG] [EKG] (7) Anxiety and depression Assessment/Plan: pt has been under a great deal of physical and emotional stress over the past year, both from her own health and well as that of her sister. She is on medications for anxiety/depression. Code(s): F41.9 - ANXIETY DISORDER, UNSPECIFIED; F32.9 - MAJOR DEPRESSIVE DISORDER, SINGLE EPISODE, UNSPECIFIED
[2017-11-23] MEDS: HEPARIN - 25,000 UNIT in SODIUM CHLORIDE 495 ML IV SCH (13:45)
--- NOTE | 2017-11-23 16:11 | PN ---
Physical Exam: SUBJECTIVE: Patient seen and examined oob to chair. Brother present. Patient speaks very softly which she states is a big improvement from immediate post-op. OBJECTIVE: Vital Signs Period Temp Pulse Resp BP Sys/Beckwith Pulse Ox Last 24 Hr 97.4 F-98.3 F 60-71 20-20 103-132/60-70 97 GENERAL: The patient is awake, alert, and fully oriented, in no acute distress. Voice is low, speech fluent. NECK: anterior neck dressing c/d/i LUNGS: Breath sounds equal, clear to auscultation bilaterally, no wheezes, no crackles, no accessory muscle use. HEART: Regular rate and rhythm, S1, S2 ABDOMEN: Soft, nontender, nondistended EXTREMITIES: 2+ pulses, warm, well-perfused, no edema. No calf tenderness. NEUROLOGICAL: Cranial nerves II through XII grossly intact. Laboratory Results - last 24 hr 11/22/17 11/22/17 11/23/17 16:45 20:30 05:30 WBC 5.2 RBC 3.78 Hgb 12.0 Hct 35.3 MCV 93.5 MCH 31.7 MCHC 33.9 RDW 13.2 Plt Count 295 MPV 8.6 Absolute Neuts (auto) 3.2 Neutrophils % 62.0 Lymphocytes % 25.7 Monocytes % 8.9 Eosinophils % 2.6 Basophils % 0.8 Nucleated RBC % 0 PTT (Actin FS) 56.3 H Sodium Potassium Chloride Carbon Dioxide Anion Gap BUN Creatinine Creat Clearance w eGFR POC Glucometer 150 Random Glucose Calcium 11/23/17 11/23/17 11/23/17 05:30 05:46 11:58 WBC RBC Hgb Hct MCV MCH MCHC RDW Plt Count MPV Absolute Neuts (auto) Neutrophils % Lymphocytes % Monocytes % Eosinophils % Basophils % Nucleated RBC % PTT (Actin FS) Sodium 139 Potassium 4.1 Chloride 104 Carbon Dioxide 25 Anion Gap 10 BUN 11 Creatinine 0.5 L Creat Clearance w eGFR > 60 POC Glucometer 106 90 Random Glucose 108 H Calcium 9.1 Active Medications Generic Name Dose Route Start Last Admin Trade Name Freq PRN Reason Stop Dose Admin Acetaminophen 650 mg 11/18/17 09:47 11/21/17 13:55 Tylenol - PO 650 mg Q6H PRN Administration PAIN LEVEL 1-3 Aspirin 81 mg 11/19/17 10:00 11/23/17 09:27 Ecotrin - PO 81 mg DAILY NGA Administration Atorvastatin Calcium 10 mg 11/18/17 22:00 11/22/17 22:06 Lipitor - PO 10 mg HS NGA Administration Bisacodyl 10 mg 11/18/17 09:47 11/20/17 13:17 Dulcolax Suppository - RC 10 mg PRN PRN Administration CONSTIPATION Buspirone HCl 15 mg 11/18/17 10:00 11/23/17 09:27 Buspar - PO 15 mg BID NGA Administration Calcium Carbonate/Cholecalciferol 1 tab 11/18/17 10:00 11/23/17 09:27 Os-Stepan 500+D - PO 1 tab BID NGA Administration Clopidogrel Bisulfate 75 mg 11/22/17 17:00 11/23/17 09:29 Plavix - PO 75 mg DAILY NGA Administration Heparin Sodium (Porcine) 1,000 unit 11/22/17 13:37 Heparin - IVPUSH PRN PRN Heparin Heparin Sodium (Porcine) 5,000 unit 11/22/17 13:37 Heparin - IVPUSH PRN PRN Heparin Heparin Sodium (Porcine) 25, 500 mls @ 16 mls/hr 11/22/17 13:45 11/22/17 22: 12 000 unit/ Sodium Chloride IV 800 unit/hr TITR NGA 16 mls/hr Titration Protocol 800 UNIT/HR Metoprolol Tartrate 50 mg 11/18/17 10:00 11/23/17 09:27 Lopressor - PO 50 mg BID NGA Administration Repaglinide 0.5 mg 11/18/17 11:00 11/23/17 12:01 Prandin - PO 0.5 mg TIDAC NGA Administration Sertraline HCl 50 mg 11/19/17 10:00 11/23/17 09:27 Zoloft - PO 50 mg DAILY NGA Administration ASSESSMENT/PLAN: 77 year old female with PMH significant for HTN, HLD, NIDDM, cervical spine stenosis and cervical rediculopathy s/p cervical surgery complicated by right jugular vein laceration. Post surgical course complicated by NSTEMI. s/p anterior cervical laminectomy/repair of jugular vein laceration 11/13 --continue soft collar NSTEMI --positive stress for anterior apical septal ischemia --continue heparin drip --continue ASA, Plavix --plan to transfer to [place] for cath Hypertension --BP stable --continue metoprolol Hyperlipidemia --continue Lipitor NIDDM --Novolog sliding scale coverage FEN Fluids: PO intake adequate Electrolytes: replete as indicated Nutrition: puree DVT prophylaxis: on heparin drip Physical therapy Dispo: awaiting transfer to [place]. Full code. Visit type - Emergency Visit Emergency Visit: Yes ED Registration Date: 11/12/17 Care time: The patient presented to the Emergency Department on the above date and was hospitalized for further evaluation of their emergent condition. - New Patient This patient is new to me today: Yes Date on this admission: 11/24/17 - Critical Care Critical Care patient: No
[2017-11-23] MEDS: ACETAMINOPHEN 325 MG TABLET (FP) PO PRN (19:36)
[2017-11-23] MEDS: ATORVASTATIN CA 10 MG TABLET (FP) PO SCH (21:51)
[2017-11-24] MEDS: REPAGLINIDE 0.5 MG TABLET (FP) PO SCH ×3 (06:37→16:32)
[2017-11-24 07:28] LABS: HEMATOCRIT 35.7 % (32.4-45.2); MCH 31.4 pg (25.7-33.7); MCHC 33.7 g/dl (32.0-36.0); MEAN CELL VOLUME 93.3 fl (80-96); MEAN PLT VOLUME 8.6 fl (7.5-11.1); PLATELET COUNT 289 K/MM3 (134-434); RBC 3.83 M/mm3 (3.60-5.2); RDW 12.7 % (11.6-15.6); WHITE BLOOD COUNT 5.7 K/mm3 (4.0-10.0)
--- NOTE | 2017-11-24 08:21 | PN ---
Physical Exam: SUBJECTIVE: Patient seen and examined oob to chair. Brother present. Speaks in a whisper. Denies pain. OBJECTIVE: Vital Signs Period Temp Pulse Resp BP Sys/Beckwith Pulse Ox Last 24 Hr 97.8 F-98.3 F 56-76 18-20 103-146/56-72 97-98 GENERAL: The patient is awake, alert, and fully oriented, in no acute distress. Voice is low, speech fluent. NECK: anterior neck dressing c/d/i LUNGS: Breath sounds equal, clear to auscultation bilaterally, no wheezes, no crackles, no accessory muscle use. HEART: Regular rate and rhythm, S1, S2 ABDOMEN: Soft, nontender, nondistended EXTREMITIES: 2+ pulses, warm, well-perfused, no edema. No calf tenderness. NEUROLOGICAL: Cranial nerves II through XII grossly intact. Laboratory Results - last 24 hr 11/23/17 11/23/17 11/23/17 11:58 16:47 18:00 WBC RBC Hgb Hct MCV MCH MCHC RDW Plt Count MPV PTT (Actin FS) 69.7 H POC Glucometer 90 106 11/23/17 11/24/17 11/24/17 23:20 06:00 07:05 WBC 5.7 RBC 3.83 Hgb 12.0 Hct 35.7 MCV 93.3 MCH 31.4 MCHC 33.7 RDW 12.7 Plt Count 289 MPV 8.6 PTT (Actin FS) POC Glucometer 89 95 11/24/17 07:05 WBC RBC Hgb Hct MCV MCH MCHC RDW Plt Count MPV PTT (Actin FS) 93.5 H* D POC Glucometer Active Medications Generic Name Dose Route Start Last Admin Trade Name Freq PRN Reason Stop Dose Admin Acetaminophen 650 mg 11/18/17 09:47 11/23/17 19:36 Tylenol - PO 650 mg Q6H PRN Administration PAIN LEVEL 1-3 Aspirin 81 mg 11/19/17 10:00 11/23/17 09:27 Ecotrin - PO 81 mg DAILY NGA Administration Atorvastatin Calcium 10 mg 11/18/17 22:00 11/23/17 21:51 Lipitor - PO 10 mg HS NGA Administration Bisacodyl 10 mg 11/18/17 09:47 11/20/17 13:17 Dulcolax Suppository - RC 10 mg PRN PRN Administration CONSTIPATION Buspirone HCl 15 mg 11/18/17 10:00 11/23/17 21:50 Buspar - PO 15 mg BID NGA Administration Calcium Carbonate/Cholecalciferol 1 tab 11/18/17 10:00 11/23/17 21:51 Os-Stepan 500+D - PO 1 tab BID NGA Administration Clopidogrel Bisulfate 75 mg 11/22/17 17:00 11/23/17 09:29 Plavix - PO 75 mg DAILY NGA Administration Heparin Sodium (Porcine) 1,000 unit 11/22/17 13:37 Heparin - IVPUSH PRN PRN Heparin Heparin Sodium (Porcine) 5,000 unit 11/22/17 13:37 Heparin - IVPUSH PRN PRN Heparin Heparin Sodium (Porcine) 25, 500 mls @ 16 mls/hr 11/22/17 13:45 11/23/17 22: 14 000 unit/ Sodium Chloride IV 800 unit/hr TITR NGA 16 mls/hr Titration Protocol 800 UNIT/HR Metoprolol Tartrate 50 mg 11/18/17 10:00 11/23/17 21:51 Lopressor - PO 50 mg BID NGA Administration Repaglinide 0.5 mg 11/18/17 11:00 11/24/17 06:37 Prandin - PO 0.5 mg TIDAC NGA Administration Sertraline HCl 50 mg 11/19/17 10:00 11/23/17 09:27 Zoloft - PO 50 mg DAILY NGA Administration ASSESSMENT/PLAN 77 year old female with PMH significant for HTN, HLD, NIDDM, cervical spine stenosis and cervical rediculopathy s/p cervical surgery complicated by right jugular vein laceration. Post surgical course complicated by NSTEMI. s/p anterior cervical laminectomy/repair of jugular vein laceration 11/13 --continue soft collar --voice hoarse, whisper; speech eval requested NSTEMI --positive stress for anterior apical septal ischemia --continue heparin drip; repeat PTT now --continue ASA, Plavix --plan to transfer to [place] for cath Hypertension --BP stable --continue metoprolol Hyperlipidemia --continue Lipitor NIDDM --Novolog sliding scale coverage FEN Fluids: PO intake adequate Electrolytes: replete as indicated Nutrition: puree DVT prophylaxis: on heparin drip Physical therapy Dispo: awaiting transfer to [place]. Full code. Visit type - Emergency Visit Emergency Visit: Yes ED Registration Date: 11/12/17 Care time: The patient presented to the Emergency Department on the above date and was hospitalized for further evaluation of their emergent condition. - New Patient This patient is new to me today: No - Critical Care Critical Care patient: No
--- NOTE | 2017-11-24 08:23 | PN ---
Progress Note (short form) - Note Progress Note: Patient sitting eating breakfast. Comfortable Speaking Voice normal Neuro at baseline. Walked in the hallway yesterday. From the Orthopaedic view ready for discharge. Will see in the office in 1week to decide if posterior stabilization will be necessary. 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
[2017-11-24] MEDS: busPIRone HCL 5 MG TABLET PO SCH ×2 (10:09→21:54)
[2017-11-24] MEDS: METOPROLOL TARTRATE 50 MG TABLET (FP) PO SCH ×2 (10:09→21:54)
[2017-11-24] MEDS: ASPIRIN COATED 81 MG TABLET.EC PO SCH (10:11)
[2017-11-24] MEDS: CLOPIDOGREL BISULFATE 75 MG TABLET (FP) PO SCH (10:11)
[2017-11-24] MEDS: CALCIUM 500MG/VIT-D 200 UNITS COMBO TABLET (FP) PO SCH ×2 (10:12→21:54)
[2017-11-24] MEDS: SERTRALINE HCL 50 MG TABLET (FP) PO SCH (10:12)
--- NOTE | 2017-11-24 11:05 | PN ---
Progress Note, Physician History of Present Illness: The patient is a 77 year old female with a significant PMH of hypertension and diabetes who presents to the emergency department for preoperative testing. The patient reports that she recently had cervical surgery done. The patients brother reports that the patient had a doctor follow up today by which she had an x-ray done and it was found that a screw had came loose and dislodged . the patient reports that her surgeon sent her to the ED for direct admission for surgery. The patient denies endorses some itching at site secondary to discomfort. The patient denies any other symptoms. She denies any fever, chills , nausea, vomit, diarrhea, constipation or urinary symptoms. She denies any chest pain, shortness of breath, headache and dizziness. The patient denies any other complaints. - Current Medication List Current Medications: Active Medications Acetaminophen (Tylenol -) 650 mg PO Q6H PRN PRN Reason: PAIN LEVEL 1-3 Last Admin: 11/23/17 19:36 Dose: 650 mg Aspirin (Ecotrin -) 81 mg PO DAILY [facility] Last Admin: 11/24/17 10:11 Dose: 81 mg Atorvastatin Calcium (Lipitor -) 10 mg PO HS [facility] Last Admin: 11/23/17 21:51 Dose: 10 mg Bisacodyl (Dulcolax Suppository -) 10 mg RC PRN PRN PRN Reason: CONSTIPATION Last Admin: 11/20/17 13:17 Dose: 10 mg Buspirone HCl (Buspar -) 15 mg PO BID [facility] Last Admin: 11/24/17 10:09 Dose: 15 mg Calcium Carbonate/Cholecalciferol (Os-Stepan 500+D -) 1 tab PO BID [facility] Last Admin: 11/24/17 10:12 Dose: 1 tab Clopidogrel Bisulfate (Plavix -) 75 mg PO DAILY [facility] Last Admin: 11/24/17 10:11 Dose: 75 mg Heparin Sodium (Porcine) (Heparin -) 1,000 unit IVPUSH PRN PRN PRN Reason: Heparin Heparin Sodium (Porcine) (Heparin -) 5,000 unit IVPUSH PRN PRN PRN Reason: Heparin Heparin Sodium (Porcine) 25, (000 unit/ Sodium Chloride) 500 mls @ 16 mls/hr IV TITR [facility]; Protocol Last Titration: 11/24/17 09:00 Dose: 700 unit/hr, 14 mls/hr Metoprolol Tartrate (Lopressor -) 50 mg PO BID [facility] Last Admin: 11/24/17 10:09 Dose: 50 mg Repaglinide (Prandin -) 0.5 mg PO TIDAC [facility] Last Admin: 11/24/17 10:16 Dose: 0.5 mg Sertraline HCl (Zoloft -) 50 mg PO DAILY [facility] Last Admin: 11/24/17 10:12 Dose: 50 mg - Objective Vital Signs: Vital Signs Temperature 97.8 F 11/24/17 06:00 Pulse Rate 61 11/24/17 06:00 Respiratory Rate 18 11/24/17 06:00 Blood Pressure 119/63 11/24/17 06:00 O2 Sat by Pulse Oximetry (%) 98 11/23/17 21:00 Eyes: Yes: WNL, Conjunctiva Clear, EOM Intact HENT: Yes: WNL, Atraumatic, Normocephalic Neck: Yes: WNL, Supple, Trachea Midline Cardiovascular: Yes: WNL, Regular Rate and Rhythm Respiratory: Yes: WNL, Regular, CTA Bilaterally Gastrointestinal: Yes: WNL, Normal Bowel Sounds Genitourinary: Yes: WNL Musculoskeletal: Yes: WNL Extremities: Yes: WNL Edema: No Integumentary: Yes: WNL Neurological: Yes: WNL, Alert, Oriented ...Motor Strength: WNL Psychiatric: Yes: WNL Labs: CBC, BMP 11/24/17 07:05 11/23/17 05:30 INR, PTT INR 1.24 (0.82-1.09) H 11/13/17 20:10 Assessment/Plan - Problems (1) Diabetes Assessment/Plan: by history;? on medications Code(s): E11.9 - TYPE 2 DIABETES MELLITUS WITHOUT COMPLICATIONS Qualifiers: Diabetes mellitus type: type 2 (2) HTN (hypertension) Code(s): I10 - ESSENTIAL (PRIMARY) HYPERTENSION Qualifiers: Hypertension type: essential hypertension Qualified Code(s): I10 - Essential (primary) hypertension (3) Loosening of hardware in spine Code(s): T84.498A - [facility] COMPL OF INTERNAL ORTH DEVICES, IMPLNT AND GRAFTS, INIT (4) H/O cervical spine surgery Assessment/Plan: s/u cervical spine and subsequent jugular vein surgeries; f/u with surgeon Code(s): Z98.890 - OTHER SPECIFIED POSTPROCEDURAL STATES (5) Elevated troponin Assessment/Plan: please see under "acute EKG changes" Code(s): R74.8 - ABNORMAL LEVELS OF OTHER SERUM ENZYMES (6) Acute electrocardiogram changes Assessment/Plan: Elevated TNI during admission, with acute ST depression. Stress MIBI (Lexiscan) showed large area of severe anteorapical and septal ischemia, with normal LVEF. Continue metoprolol, atorvastatin, ASA and clopidogrel. NTG s/l prn for chest pain (no complaints until now). Pt for coronary angiogram. Discussed her present condition in detail with her and her siblings. Code(s): R94.31 - ABNORMAL ELECTROCARDIOGRAM [ECG] [EKG] (7) Anxiety and depression Assessment/Plan: pt has been under a great deal of physical and emotional stress over the past year, both from her own health and well as that of her sister. She is on medications for anxiety/depression. Code(s): F41.9 - ANXIETY DISORDER, UNSPECIFIED; F32.9 - MAJOR DEPRESSIVE DISORDER, SINGLE EPISODE, UNSPECIFIED
--- NOTE | 2017-11-24 11:50 | CONSULT ---
Admitting History and Physical - Primary Care Physician PCP: Rabia Houston - Admission History of Present Illness: 77 year old female with PMH significant for HTN, HLD, NIDDM, cervical spine stenosis and cervical rediculopathy s/p cervical surgery complicated by right jugular vein laceration. Post surgical course complicated by NSTEMI. s/p anterior cervical laminectomy/repair of jugular vein laceration 11/13 Pt initially Aphonic, now dysphonic. Pending transfer to tertiary hospital for Cardiac Mgmt. Pt has been on pureed diet/thin liquid with reported good mgmt. 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 Cardiovascular: Yes: HTN ...: No Psych: Yes: Anxiety Endocrine: Yes: Diabetes Mellitus - Smoking History Smoking history: Never smoked - Alcohol/Substance Use Hx Alcohol Use: Yes (wine rarely) History - Admission Reason For Visit: LOOSENING OF HARDWARE IN SPINE - Diagnostics X-ray: Report Reviewed (cxr 11/16 (-)) - General Mental Status: Alert and Oriented, Awake and Alert, Able to Follow Commands Attention: Intact Ability to Follow Directions: Excellent Head/Neck Control: WFL - Hearing Hearing: Normal Speech Evaluation - Communication Primary Language: ESTONIAN Oral Expression Ability: Yes: Moderate Impairment, Severe Impairment - Speech Characteristics Voice Loudness: Moderately Soft/Quiet, Severely Soft/Quiet Voice Phonatory-based Quality: Yes: Weak, Dysphonia Nasal Resonance: Normal Articulation: Yes: Precise - Swallow Evaluation/Bedside Assessment Current Nutritional Intake: Dysphagia Pureed, Thin Liquids Oral Secretions: Yes: WFL Dentition: Yes: Adequate Facial Symmetry at Rest: Symmetrical Facial Symmetry on Retraction: Symmetrical Facial Movement: Controlled Sensation: Normal Against Resistance Opening: Normal Against Resistance Closing: Normal Pucker Lips: Normal Lingual Movement: Normal, Symmetric Lingual Speed of Movement: Normal Lingual Movement Strgth Against Opposition: Normal Lingual Movement Characteristics: Normal Velopharyngeal Movement: Normal Laryngeal Elevation: Impaired Laryngeal Movement: Reduced Excursion, Labored,delay initiation Bolus Size: Small Labial Seal: WFL Oral Prep Time: WFL A-P Transit: WFL Pocketing: None Timing of Swallow: Delayed Coughing/Throat Clear: Yes (intermittent throat clearing with thin liquid.) Recommendations - Speech Evaluation, Impression/Plan Impression: Initial Ant fusion / with voice improvement from Aphonia to Dysphonia. Followed by repeat surgery due to hardware failure. Pt was Aphonic again, following sx, but with slight gains in voicing to Mod-Severe Dysphonia. Pt tolerating pureed diet/thin liquid. Pt reports intermittent throat clearing and need to alternate puree with liquid to clear pharyngeal residue. Pt is pending transfer. She is not stable for [facility] at this time. - Dysphagia Impressions/Plan Swallowing Skills: Impaired (Suspect stasis with puree/risk of aspiration. Bedside evaluation is inconsistent and unreliable. Pt is not congested and appetite is good.) *Silent aspiration: cannot be R/O at bedside Dysphagia Treatment Plan: Small Bites, Chin Tuck/Down (as tolerated and allowed by surgeon), Safe Rate, 1/2 tsp. at a time, OOB for meals, Other (Effortful swallow with each bite, twice, followed by sip of liquid, again with effortful swallow.) Recommendations: ENT Consult (to visualize vocal cords, once medically stable. r /o edema/arrythema vs vocal cord dysfunction.), Modified Barium Swallow (or FEESST at [place], once medically stable, to further assess swallowing function.), Other (Swallowing exercises including Effortful swallow and Suzie. Gentle sustained phonation. Monitor pulmonary and nutritional status) - Recommendations Diet Consistency: Dysphagia Pureed Medication Administration: Crushed with applesauce Liquids: Thin Liquids Supplement: Glucerna (TID)
[2017-11-24] MEDS ORDERED: ONDANSETRON 4 MG/2 ML VIAL IVPUSH ONE (21:40)
[2017-11-24] MEDS: ATORVASTATIN CA 10 MG TABLET (FP) PO SCH (21:46)
[2017-11-25] MEDS: BISACODYL 10 MG SUPP.RECT RC PRN (03:01)
[2017-11-25 05:21] VITALS: PULSE 59
[2017-11-25 08:12] LABS: HEMATOCRIT 34.9 % (32.4-45.2); HEMOGLOBIN 11.8 GM/dL (10.7-15.3); MCH 31.7 pg (25.7-33.7); MEAN CELL VOLUME 93.5 fl (80-96); PLATELET COUNT 284 K/MM3 (134-434); RBC 3.73 M/mm3 (3.60-5.2); RDW 13.1 % (11.6-15.6); WHITE BLOOD COUNT 5.8 K/mm3 (4.0-10.0)
--- NOTE | 2017-11-25 08:55 | PN ---
Progress Note, Physician Chief Complaint: Pt OOB in chair. No chest pain, dyspnea, dizziness, or palpitations, but did feel nauseous last night for about 1/2 hour. History of Present Illness: The patient is a 77 year old white female (jens Cross), with a significant PMH of hypertension and diabetes, who presents to the emergency department for preoperative testing. The patient reports that she recently had cervical surgery done. The patients brother reports that the patient had a doctor follow up today by which she had an x-ray done and it was found that a screw had came loose and dislodged . the patient reports that her surgeon sent her to the ED for direct admission for surgery. The patient denies endorses some itching at site secondary to discomfort. The patient denies any other symptoms. She denies any fever, chills, nausea, vomit, diarrhea, constipation or urinary symptoms. She denies any chest pain, shortness of breath, headache and dizziness. The patient denies any other complaints. Pt has now been found to have EKG changes and TNI elevation, and cardiology evaluation was called. - Current Medication List Current Medications: Active Medications Acetaminophen (Tylenol -) 650 mg PO Q6H PRN PRN Reason: PAIN LEVEL 1-3 Last Admin: 11/23/17 19:36 Dose: 650 mg Aspirin (Ecotrin -) 81 mg PO DAILY [facility] B[facility]S AT [facility] Last Admin: 11/24/17 10:11 Dose: 81 mg Atorvastatin Calcium (Lipitor -) 10 mg PO HS [facility]CLUDE 234 BEDS AT [facility] Last Admin: 11/24/17 21:46 Dose: 10 mg Bisacodyl (Dulcolax Suppository -) 10 mg RC PRN PRN PRN Reason: CONSTIPATION Last Admin: 11/25/17 03:01 Dose: 10 mg Buspirone HCl (Buspar -) 15 mg PO BID [facility] 234 BEDS AT [facility] Last Admin: 11/24/17 21:54 Dose: 15 mg Calcium Carbonate/Cholecalciferol (Os-Stepan 500+D -) 1 tab PO BID [facility] 234 B[facility]S AT [facility] Last Admin: 11/24/17 21:54 Dose: 1 tab Clopidogrel Bisulfate (Plavix -) 75 mg PO DAILY [facility] 234 BEDS AT [facility] Last Admin: 11/24/17 10:11 Dose: 75 mg Heparin Sodium (Porcine) (Heparin -) 1,000 unit IVPUSH PRN PRN PRN Reason: Heparin Heparin Sodium (Porcine) (Heparin -) 5,000 unit IVPUSH PRN PRN PRN Reason: Heparin Heparin Sodium (Porcine) 25, (000 unit/ Sodium Chloride) 500 mls @ 16 mls/hr IV TITR [facility]; Protocol Last Titration: 11/24/17 16:01 Dose: 700 unit/hr, 14 mls/hr Metoprolol Tartrate (Lopressor -) 50 mg PO BID [facility] 234 BEDS AT [facility] Last Admin: 11/24/17 21:54 Dose: 50 mg Polyethylene Glycol (Miralax (For Daily Use) -) 17 gm PO BID [facility]CLUDE 234 BEDS AT [facility] Repaglinide (Prandin -) 0.5 mg PO TIDAC COUNTS INCLUDE 234 BEDS AT [facility] Last Admin: 11/24/17 16:32 Dose: 0.5 mg Sertraline HCl (Zoloft -) 50 mg PO DAILY [facility]CLUDE 234 BEDS AT [facility] Last Admin: 11/24/17 10:12 Dose: 50 mg - Objective Vital Signs: Vital Signs Temperature 98.2 F 11/25/17 05:20 Pulse Rate 59 L 11/25/17 05:20 Respiratory Rate 20 11/25/17 05:20 Blood Pressure 133/77 11/25/17 05:20 O2 Sat by Pulse Oximetry (%) 95 11/24/17 21:00 Constitutional: Yes: Anxious Eyes: Yes: WNL HENT: Yes: WNL Labs: CBC, BMP 11/25/17 06:15 11/23/17 05:30 INR, PTT INR 1.24 (0.82-1.09) H 11/13/17 20:10 Problem List - Problems (1) Diabetes Assessment/Plan: by history;? on medications Code(s): E11.9 - TYPE 2 DIABETES MELLITUS WITHOUT COMPLICATIONS Qualifiers: Diabetes mellitus type: type 2 (2) HTN (hypertension) Code(s): I10 - ESSENTIAL (PRIMARY) HYPERTENSION Qualifiers: Hypertension type: essential hypertension Qualified Code(s): I10 - Essential (primary) hypertension (3) Loosening of hardware in spine Code(s): T84.498A - [facility] COMPL OF INTERNAL ORTH DEVICES, IMPLNT AND GRAFTS, INIT (4) H/O cervical spine surgery Assessment/Plan: s/u cervical spine and subsequent jugular vein surgeries; f/u with surgeon Code(s): Z98.890 - OTHER SPECIFIED POSTPROCEDURAL STATES (5) Elevated troponin Assessment/Plan: please see under "acute EKG changes" Code(s): R74.8 - ABNORMAL LEVELS OF OTHER SERUM ENZYMES (6) Acute electrocardiogram changes Assessment/Plan: Elevated TNI during admission, with acute ST depression. Stress MIBI (Lexiscan) showed large area of severe anteorapical and septal ischemia, with normal LVEF. Continue metoprolol, atorvastatin, ASA and clopidogrel. NTG s/l prn for chest pain (no complaints until now). Pt for coronary angiogram. Discussed her present condition in detail with her and her siblings. Code(s): R94.31 - ABNORMAL ELECTROCARDIOGRAM [ECG] [EKG] (7) Anxiety and depression Assessment/Plan: pt has been under a great deal of physical and emotional stress over the past year, both from her own health and well as that of her sister. She is on medications for anxiety/depression. Code(s): F41.9 - ANXIETY DISORDER, UNSPECIFIED; F32.9 - MAJOR DEPRESSIVE DISORDER, SINGLE EPISODE, UNSPECIFIED
[2017-11-25] MEDS ORDERED: POLYETHYLENE GLYCOL 3350 119 GM BTL PO SCH (10:00)
[2017-11-25] MEDS: ASPIRIN COATED 81 MG TABLET.EC PO SCH (10:18)
[2017-11-25] MEDS: METOPROLOL TARTRATE 50 MG TABLET (FP) PO SCH (10:19)
[2017-11-25] MEDS: CALCIUM 500MG/VIT-D 200 UNITS COMBO TABLET (FP) PO SCH (10:19)
[2017-11-25] MEDS: CLOPIDOGREL BISULFATE 75 MG TABLET (FP) PO SCH (10:19)
[2017-11-25] MEDS: busPIRone HCL 5 MG TABLET PO SCH (10:22)
[2017-11-25] MEDS: HEPARIN - 25,000 UNIT in SODIUM CHLORIDE 495 ML IV SCH (10:24)
[2017-11-25] MEDS: REPAGLINIDE 0.5 MG TABLET (FP) PO SCH (10:25)
[2017-11-25] MEDS: SERTRALINE HCL 50 MG TABLET (FP) PO SCH (10:28)
--- NOTE | 2017-11-25 11:32 | PN ---
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 Reviewed with pt: Small Bites, Chin Tuck/Down (as tolerated and allowed by surgeon), Safe Rate, 1/ 2 tsp. at a time, OOB for meals, Other (Effortful swallow with each bite, twice , followed by sip of liquid, again with effortful swallow.) Recommend At [place] as in pt or as out pt: ENT Consult (to visualize vocal cords, once medically stable. r/o edema/ arrythema vs vocal cord dysfunction.), Modified Barium Swallow (or FEESST at [place], once medically stable, to further assess swallowing function.), Other (Swallowing exercises including Effortful swallow and Suzie. Gentle sustained phonation. Monitor pulmonary and nutritional status) Diet Consistency: Dysphagia Pureed Medication Administration: Crushed with applesauce Liquids: Thin Liquids Supplement: Glucerna (TID)
--- NOTE | 2017-11-25 14:32 | DS ---
Physical Exam: SUBJECTIVE: Patient seen and examined OBJECTIVE: Vital Signs Period Temp Pulse Resp BP Sys/Beckwith Pulse Ox Last 24 Hr 97.6 F-98.3 F 59-65 18-20 121-133/64-77 95 PHYSICAL EXAM GENERAL: The patient is awake, alert, and fully oriented, in no acute distress. HEAD: Normal with no signs of trauma. EYES: PERRL, extraocular movements intact, sclera anicteric, conjunctiva clear. ENT: Ears normal, nares patent, oropharynx clear without exudates, moist mucous membranes. NECK: Trachea midline, full range of motion, supple. LUNGS: Breath sounds equal, clear to auscultation bilaterally, no wheezes, no crackles, no accessory muscle use. HEART: Regular rate and rhythm, S1, S2 without murmur, rub or gallop. ABDOMEN: Soft, nontender, nondistended, normoactive bowel sounds, no guarding, no rebound, no hepatosplenomegaly, no masses. EXTREMITIES: 2+ pulses, warm, well-perfused, no edema. NEUROLOGICAL: Cranial nerves II through XII grossly intact. Normal speech, gait not observed. PSYCH: Normal mood, normal affect. SKIN: Warm, dry, normal turgor, no rashes or lesions noted. LABS Laboratory Results - last 24 hr 11/24/17 11/24/17 11/25/17 15:05 16:46 06:01 WBC RBC Hgb Hct MCV MCH MCHC RDW Plt Count MPV PTT (Actin FS) 53.5 H POC Glucometer 89 101 11/25/17 11/25/17 11/25/17 06:15 06:15 11:52 WBC 5.8 RBC 3.73 Hgb 11.8 Hct 34.9 MCV 93.5 MCH 31.7 MCHC 34.0 RDW 13.1 Plt Count 284 MPV 9.0 PTT (Actin FS) 62.3 H POC Glucometer 135 HOSPITAL COURSE: Date of Admission:11/12/17 Date of Discharge: 11/25/17 Minutes to complete discharge: 35 Discharge Summary Reason For Visit: LOOSENING OF HARDWARE IN SPINE Current Active Problems Acute electrocardiogram changes (Acute) Anxiety and depression (Acute) Diabetes (Acute) Elevated troponin (Acute) H/O cervical spine surgery (Acute) HTN (hypertension) (Acute) Loosening of hardware in spine (Acute) NSTEMI (non-ST elevated myocardial infarction) (Acute) Condition: Stable - Instructions Diet, Activity, Other Instructions: Please return to the ED for any new, persistent, or worsening symptoms. Follow up with your PCP in 1 week Take home medications as directed on discharge medication list Follow up with Dr. Velasco in 1 week. Follow up with Cardiology in 2 weeks for ECHO and stress test Referrals: Gustavo Velasco MD [Staff Physician] - (Follow up in 10 days for post operative visit ) Disposition: VNS/HOME HEALTH CARE - Home Medications Comprehensive Discharge Medication List: Ambulatory Orders Atorvastatin Ca [Lipitor] 10 mg PO DAILY 10/29/17 Buspirone HCl 15 mg PO BID 10/29/17 Stepan/D3/Mag11/Zinc/Epic [place] Specialist/Rui/Bor [Caltrate 600+D Plus Tablet] 1 tab PO BID Metoprolol Succinate 50 mg PO DAILY 10/29/17 Repaglinide [Prandin -] 0.5 mg PO TID 10/29/17 Acetaminophen [Tylenol .Regular Strength -] 650 mg PO Q6H tablet 11/03/17 Sertraline HCl 50 mg PO DAILY 11/12/17 Aspirin Coated [Ecotrin -] 81 mg PO DAILY #30 tablet.ec 11/19/17 This patient is new to me today: No Emergency Visit: Yes ED Registration Date: 11/12/17 Care time: The patient presented to the Emergency Department on the above date and was hospitalized for further evaluation of their emergent condition. Critical Care patient: No - Discharge Referral Referred to [facility] Yes
[2017-11-25 15:56] VITALS: BP 124/70; TEMP 98.4
== END 2017-11-25 17:51 | disposition short-term general hospital (02) | DRG 471 ==
LOC: JER 09:23 → JERBED 09:47 → J6S 11:08 → JICU 11-13 19:02 → J4W 11-18 09:43
PROVIDERS: ADMIT Orthopaedic Surgery Orthopaedic Surgery of the Spine; ATTEND Nurse Practitioner Acute Care
PROC: 0RG20AJ Fusion of 2 or more Cervical Vertebral Joints with Interbody Fusion Device, Posterior Approach, Anterior Column, Open Approach (ICD-10-PCS; 2017-11-13)
PROC: 0RW104Z Revision of Internal Fixation Device in Cervical Vertebral Joint, Open Approach (ICD-10-PCS; 2017-11-13)
PROC: 05QM0ZZ Repair Right Internal Jugular Vein, Open Approach (ICD-10-PCS; 2017-11-13)
PROC: 0RG20A0 Fusion of 2 or more Cervical Vertebral Joints with Interbody Fusion Device, Anterior Approach, Anterior Column, Open Approach (ICD-10-PCS; principal; 2017-11-13 10:00)
DX: T84.226A Displacement of internal fixation device of vertebrae, initial encounter (principal); I21.4 Non-ST elevation (NSTEMI) myocardial infarction; S12.590A Other displaced fracture of sixth cervical vertebra, initial encounter for closed fracture; I97.51 Accidental puncture and laceration of a circulatory system organ or structure during a circulatory system procedure; T84.028A Dislocation of other internal joint prosthesis, initial encounter; T84.498A Other mechanical complication of other internal orthopedic devices, implants and grafts, initial encounter; Y83.9 Surgical procedure, unspecified as the cause of abnormal reaction of the patient, or of later complication, without mention of misadventure at the time of the procedure; F41.8 Other specified anxiety disorders; E11.9 Type 2 diabetes mellitus without complications; I10 Essential (primary) hypertension; E78.5 Hyperlipidemia, unspecified; I25.10 Atherosclerotic heart disease of native coronary artery without angina pectoris; D72.829 Elevated white blood cell count, unspecified
CPT/HCPCS: 36415; 70360-TC-FY; 71045-TC-FY; 71046-TC-FY; 76000-TC-FY; 78452-TC; 80048; 80053; 80061; 82550; 82553; 82962; 83721; 83735; 84100; 84439; 84443; 84484; 85025; 85027; 85610; 85730; 86850; 86900; 86901; 86922; 88300-TC; 88304-TC; 93005; 93010; 93017; 93306-TC; 97116-GP; 97161-GP; 99284-25; A9502; J0131; J1644; J2785

== ENCOUNTER 2018-08-03 06:30 | Inpatient (IN) | payer OTHER, BC ==
[2018-08-03] MEDS ORDERED: THROMBIN (BOVINE) 5,000 UNIT VIAL TP ONE ×3 (07:03→14:46)
[2018-08-03] MEDS ORDERED: BENZOIN TINCTURE SWABSTICK TP ONE (07:03)
[2018-08-03] MEDS ORDERED: MIDAZOLAM HCL 2 MG/2 ML SINGLE DOSE VIAL ONE ×2 (07:04→09:01)
[2018-08-03] MEDS ORDERED: PROPOFOL 20 ML ONE ×16 (07:15→15:35)
[2018-08-03] MEDS ORDERED: LIDOCAINE HCL/PF 2% SDV 5ML VIAL ONE ×4 (07:19→13:17)
[2018-08-03] MEDS ORDERED: SUCCINYLCHOLINE CHLORIDE 200 MG/10 ML VIAL ONE (07:20)
[2018-08-03] MEDS ORDERED: ROCURONIUM BROMIDE 50 MG/5 ML VIAL ONE ×2 (07:21→12:25)
[2018-08-03] MEDS ORDERED: DEXAMETHASONE SOD PHOSPHATE 4 MG/1 ML VIAL ONE (07:22)
[2018-08-03] MEDS ORDERED: DESFLURANE GAS 240 ML BOTTLE IH ONE (07:32)
[2018-08-03] MEDS ORDERED: SEVOFLURANE 250 ML BTL ONE (07:32)
--- NOTE | 2018-08-03 08:35 | CONSULT ---
Consult - text type - Consultation Consultation Note: This 78 year old woman is pre-op for a cervical laminectomy with anterior and posterior approach. She has had 2 prior neck surgeries and required vascular consultation on her last procedure due to bleeding from the jugular vein. I have been asked to assist in anterior exposure due to high risk of scarring in the neck and major vessel involvement. The surgical plan was reviewed with the patient and who agree to proceed.
[2018-08-03] MEDS ORDERED: fentaNYL CITRATE 250 MCG/5 ML VIAL ONE (08:50)
[2018-08-03] MEDS ORDERED: HEPARIN NA (PORCINE) 5,000 UNITS/ML 1ML VIAL ONE (08:59)
[2018-08-03] MEDS ORDERED: VANCOMYCIN 1,000 MG VIAL (RESTRICTED TO ID ONLY) IVPB ONE (09:05)
[2018-08-03] MEDS ORDERED: ceFAZolin SODIUM 1 GM VIAL ONE (09:05)
[2018-08-03] MEDS ORDERED: ceFAZolin SODIUM 1 GM VIAL IVPB ONE (09:05)
[2018-08-03] MEDS ORDERED: VANCOMYCIN 1,000 MG VIAL (RESTRICTED TO ID ONLY) ONE (09:05)
[2018-08-03] MEDS ORDERED: KETAMINE HCL 200 MG/20 ML VIAL ONE (09:56)
[2018-08-03] MEDS ORDERED: GELATIN, ABSORBABLE 12-7MM EACH SPONGE TP ONE (10:37)
[2018-08-03] MEDS ORDERED: ONDANSETRON 4 MG/2 ML VIAL IVPUSH PRN ×2 (11:22→17:03)
[2018-08-03] MEDS ORDERED: LACTATED RINGERS SOLUTION 1,000 ML IV SCH (11:30)
--- NOTE | 2018-08-03 11:42 | OP ---
Operative Note - Note: Operative Date: 08/03/18 Pre-Operative Diagnosis: Cervical spine disease Operation: Right neck exploration, exposure cervical spine multiple levels. Findings: Scarred anterior neck. Old hardware on spine Post-Operative Diagnosis: Same as Pre-op Surgeon: Campos Winslow Watch Train Assembler: Gustavo Velasco Anesthesiologist/JAVA SDET: Rickey Tucker Anesthesia: General Estimated Blood Loss (mls): 50
[2018-08-03] MEDS ORDERED: SODIUM CHLORIDE 0.9% P/F 10 ML VIAL IJ ONE (12:30)
[2018-08-03] MEDS ORDERED: NEOSTIGMINE METHYLSULFATE 0.5 MG/1 ML - 10 ML MDV ONE (14:44)
[2018-08-03] MEDS ORDERED: GLYCOPYRROLATE 0.2 MG/1 ML VIAL ONE (14:44)
[2018-08-03] MEDS ORDERED: ACETAMINOPHEN 1000 MG/100 ML VIAL (NON FORMULARY) IVPB ONE (15:30)
[2018-08-03] MEDS ORDERED: BUPIVACAINE LIPOSOME/PF (EXPAREL) 266 MG/20 ML VIAL ONE (15:35)
[2018-08-03] MEDS ORDERED: ePHEDrine SULFATE 50 MG/1 ML AMPULE ONE (16:16)
--- NOTE | 2018-08-03 17:22 | PN ---
Progress Note (short form) - Note Progress Note: 78F s/p JOSE anterior cervical spine, C3-T3 posterior instrumented spinal fusion POD #0. -Admit to ICU post-op. -Pain control: per anaesthesia team; recommend COURTESY DRIVER. -DVT PPx: - Mechanical only: GREG's, SCD's. - OK to restart chemical DVT PPx. 72 hours post op (IE 6pm Wednesday, August). -Incentive spirometry q15min. -Elevate HOB 30-45 degrees. -Soft cervical collar. -PT/OT/Rehab, OOB. -WBAT B/L LE. -q4h B/L UE & LE NV checks. -Post-op antibiotics x 3 doses. -Soft diabetic diet. -f/u AM labs. -f/u drain output: anterior and posterior cervical drains. -d/c Rushing catheter when patient ambulating comfortably. -Care per ICU & medical hospitalist team. -Discharge planning: [facility]; call for appointment; . -Will follow. Gustavo Velasco MD (Orthopaedic Surgery).
--- NOTE | 2018-08-03 17:26 | OP ---
Operative Note - Note: Operative Date: 08/03/18 Pre-Operative Diagnosis: Failed hardware cervical spine Operation: 1. JOSE anterior cervical spine. 2. C3-T3 posterior instrumentation. 3. C3-T3 posterior arthrodesis. 4. Inspection of fusion mass. 5. Bone autograft. 6. Bone allograft. 7. Intra-operative neural monitoring. 8. Biplanar fluoroscopy Post-Operative Diagnosis: Same as Pre-op Surgeon: Gustavo Velasco Lime Boiler: Demetrio Velasco Anesthesiologist/RAILROAD BRAKE REPAIRER: Rickey Tucker Anesthesia: General Specimens Removed: Anterior cervical plate Estimated Blood Loss (mls): 250 Drains & Tubes with Location: Anterior - 1 x superficial HemoVac. Posterior - 1 x superficial HemoVac Blood Volume Replaced (mls): 70 (Cell saver) Fluid Volume Replaced (mls): 2,000 (Crystalloid) Operative Report Dictated: Yes
[2018-08-03] MEDS: LACTATED RINGERS SOLUTION 1,000 ML IV SCH (18:00)
--- NOTE | 2018-08-03 18:46 | CONSULT ---
Consultation: REQUESTING PROVIDER: Dr. Velasco CONSULT REQUEST: We have been asked to medically evaluate this patient for ICU level monitoring. HISTORY OF PRESENT ILLNESS: 77 year old female with PMH significant for HTN, HLD, NIDDM, cervical spine stenosis and cervical rediculopathy s/p cervical surgery complicated by right jugular vein laceration and post surgical course complicated by NSTEMI admitted to the ICU today s/p JOSE anterior cervical spine, C3-T3 posterior instrumented spinal fusion. Surgical case was uncomplicated and assisted by vascular surgery due to hx of vascular complications and risk of anterior cervical approach. Post -op upon evaluation patient still fairly sedated from anesthesia but able to follow commands and not complaining of any pain or post op nausea at this time. REVIEW OF SYSTEMS: Unable to Obtain PHYSICAL EXAMINATION Vital Signs - 24 hr 08/03/18 07:15 Temperature 97.9 F Pulse Rate 62 Respiratory 18 Rate Blood Pressure 140/70 O2 Sat by Pulse 98 Oximetry (%) GEN: Still moderately sedated, follows commands HEENT: PERRL, dry mucus membranes NECK: supple, dressing clean and dry with drains in place HEART: RRR, no murmurs noted LUNGS: CTA b/l ABDOMEN: Soft, nontender, hypoactive bowel sounds NEURO: unable to adequately assess due to sedation, however follows commands and able to move b/l UE. Laboratory Results - last 24 hr 08/03/18 08/03/18 06:58 07:40 POC Glucometer 140 Blood Type AB POSITIVE Antibody Screen Negative Active Medications Generic Name Dose Route Start Last Admin Trade Name Freq PRN Reason Stop Dose Admin Amlodipine Besylate 5 mg 08/04/18 10:00 Norvasc - PO DAILY [facility] Buspirone HCl 15 mg 08/03/18 22:00 Buspar - PO BID [facility] Ezetimibe 10 mg 08/04/18 10:00 Zetia - PO DAILY [facility] Fentanyl 25 mcg 08/03/18 11:22 Sublimaze Injection - IVPUSH [id number] PRN PAIN-PACU ORDER X 4 DOSES ONLY Hydromorphone HCl 10 mg 08/03/18 11:30 Dilaudid 3D Animator - CAR SUPERVISOR 08/10/18 11:22 CAR SUPERVISOR [facility] Protocol Cefazolin Sodium 1 gm in 50 mls @ 100 mls/hr 08/03/18 22:00 Ancef 1 Gm Premixed Ivpb - IVPB 08/04/18 14:29 Q8H NGA Lactated Ringer's 1,000 mls @ 125 mls/hr 08/03/18 17:15 Lactated Ringers Solution IV ASDIR NGA Metoprolol Tartrate 50 mg 08/04/18 10:00 Lopressor - PO DAILY NGA Ondansetron HCl 4 mg 08/03/18 17:03 Zofran Injection IVPUSH Q6H PRN NAUSEA AND/OR VOMITING Pantoprazole Sodium 40 mg 08/04/18 10:00 Protonix - PO DAILY NGA Repaglinide 0.5 mg 08/04/18 07:00 Prandin - PO TIDAC NGA Sertraline HCl 75 mg 08/04/18 22:00 Zoloft - PO HS NGA ASSESSMENT/PLAN: 77 year old female with PMH significant for HTN, HLD, NIDDM, cervical spine stenosis and cervical rediculopathy s/p cervical surgery complicated by right jugular vein laceration and post surgical course complicated by NSTEMI admitted to the ICU today s/p JOSE anterior cervical spine, C3-T3 posterior instrumented spinal fusion. POST-OP -Uncomplicated procedure with 250 cc blood loss and 70 cc CellSaver returned in addition to 2L crystalloid -Pain control with CAR SUPERVISOR as per anesthesia -OOB as tolerated -Incentive spirometry -D/C rene when ambulating -Soft Cervical collar -Monitor overnight for airway compromise with anterior approach noted and hx of vascular complications NEURO -monitor for neurovascular compromise CARDIOVASCULAR -HTN Norvasc 5 mg PO Daily -HLD Ezetimibe ENDOCRINE -NIDDM BGMs and Insulin sliding scale PULMONARY -incentive spirometry ID -Ancef for 24 hours FEN -LR @ 125 cc/hr -monitor and replete -NPO PROPHYLAXIS -Mechanical prophylaxis only DISPOSITION Monitor in the ICU for airway compromise Dispo: We will continue to follow the patient. Thank you for this consultative opportunity. Visit type - Emergency Visit Emergency Visit: No - New Patient This patient is new to me today: Yes Date on this admission: 08/03/18 - Critical Care Critical Care patient: Yes Total Critical Care Time (in minutes): 36 Critical Care Statement: The care of this patient involved high complexity decision making to prevent further life threatening deterioration of the patient 's condition and/or to evaluate & treat vital organ system(s) failure or risk of failure.
[2018-08-03] MEDS ORDERED: PT OWN MED DRAWER 7, Y5N ONE (19:37)
--- NOTE | 2018-08-03 20:50 | OP ---
DATE OF OPERATION: 08/03/2018 SURGEON: Campos Gage M.D. Co-Surgeon: Gustavo Velasco M.D. Iron Guardrail Installer: Demetrio Velasco M.D. OPERATIVE PROCEDURE: Exploration of right neck with exposure of anterior cervical spine. PREOPERATIVE DIAGNOSIS: Cervical spine disease with recurrent stenosis. ANESTHESIA: General. ANESTHESIOLOGIST: Rickey Tucker M.D. OPERATIVE FINDINGS: This patient has had 2 prior cervical spine surgeries and has right vocal cord paralysis. She requires repeat spinal stabilization due to failure of the hardware. There was scar tissue along the length of the right neck from prior surgery. The spinal hardware was exposed and intact. OPERATIVE PROCEDURE: Following patient identification, general anesthesia was induced. The patient was positioned for surgery by Dr. Velasco and sterilely draped. Timeout was performed. A skin incision was made along the anterior border of the right sternocleidomastoid and carried through subcutaneous tissues and platysma layers using cautery. Using sharp dissection and cautery, the anterior border of the sternocleidomastoid was freed the length of the incision and retracted laterally. The jugular vein was dissected along its anterior border. It was also retracted laterally. The carotid artery was identified with palpation and was dissected along its anterior border outside of the carotid sheath. The vessel was gently retracted laterally to expose the plane of the neck on top of the old plate over the cervical spine. Sharp dissection was used on the lateral aspect of the metal plate to cut scar tissue and allow the metal to be exposed from lateral to medial. This was carried from the base of the plate superiorly. The hyoid muscle was divided in order to gain access to the more inferior portion of the incision. During dissection , the inferior thyroid artery was divided between ties of silk. After complete exposure of the preexisting hardware, the wound was checked for hemostasis. Dr. Velasco then completed the procedure as described separately. Blood loss for this portion of the procedure was 50 mL. CAMPOS GAGE M.D. [id number] MTDD
[2018-08-03] MEDS: HYDROmorphone *PCA* 10MG/50ML DISP.SYRIN PCA SCH (21:53)
[2018-08-03] MEDS ORDERED: busPIRone HCL 5 MG TABLET PO SCH (22:00)
[2018-08-03] MEDS: CEFAZOLIN 1 GM/D5W 1 GM/50 ML BAG IVPB SCH (22:15)
--- NOTE | 2018-08-03 22:33 | OP ---
DATE OF OPERATION: 08/03/2018 SURGEON: Gustavo Velasco MD TOBACCO DIPPER: Demetrio Velasco MD CO-SURGEON: Campos Winslow MD, Vascular Surgery PREOPERATIVE DIAGNOSES: Failed hardware, anterior cervical spine, with segmental instability; original plate cage C3 to C7 had broken out anteriorly. POSTOPERATIVE DIAGNOSES: Failed hardware, anterior cervical spine, with segmental instability; original plate cage C3 to C7 had broken out anteriorly. OPERATION PERFORMED: 1. Anterior approach through an oblique longitudinal incision along the anterior border of sternocleidomastoid, removal of plate, inspection of fusion mass and hardware. 2. Application of halo ring and instrumented posterior arthrodesis (Precision Spine) from C3 to T2 (hybrid deya fixation). ANESTHESIA: General. ANTIBIOTICS GIVEN: 2 g Kefzol, 1 g vancomycin preoperatively; 1 g Kefzol given during the 1st part of the operation, towards the end of that, and the 2nd gram of vancomycin given during instrumentation of the posterior elements. BLOOD LOSS: 250 mL; 75 mL given back by Cell Saver. OPERATION DETAIL: INDICATIONS: The patient was treated for severe spondylogenic myelopathy with cord compression approximately 9 months ago with a routine 2- level corpectomy and Harms cage plating. Unfortunately, the osteopenic bone allowed the cage to break out anteriorly. This was revisited with a 2nd attempt at fixation , which again broke out for the 2nd time and failed. The patient was scheduled for surgery. Unfortunately, he suffered a myocardial infarction, required stenting , and had to delay the surgery almost up to 9 months until the cardiac status had settled. The indication here was for removal of the hardware, reinsertion of cage, and re-plating anteriorly and then going ahead with a posterior approach with a C3 to T3 instrumented posterior arthrodesis. OPERATION DETAIL: After routine draping and prepping, the patient was placed supine on a flat Tom table. The neck was extended by placing a bolster behind the scapulae. An oblique incision was made from the top of the sternocleidomastoid to almost the angle of the jaw, right down to the sternomanubrial notch for ease of access. We opted to use the right approach because the right laryngeal nerve was dysfunctioned. The left recurrent laryngeal nerve was functioning well. A blind scope was used for intubation. Timeout was called. Imaging was available to me for intraoperative evaluation. The dissection was a painstaking [id number] dissection through the scar tissue that had previously been formed by the previous surgery. The carotid sheath was eventually retracted laterally after meticulous dissection. The pharynx and esophageal structures were retracted medially to the left side to gain access to the plate. The plate was slowly freed from its encasing fibrous tissue elements. This was a thick layer of fibrous tissue. Once the plates had been removed, the next visible layer of tissue was a thick vine of fibro-osseous material anterior to the cage. This was longitudinally incised and opened like a book to expose the entire Harms cage. The cage itself was solidly fixed proximally and, distally, most surprisingly, we found that it was fixed solidly into an island of bone as well as the remaining vertebral body posteriorly to this. The island of bone as seen on the CT scan had solidly healed itself to the main body of the vertebral body. After an agonizing deliberation intraoperatively, the options were to remove the cage, which itself would be an extremely difficult event, and because this is a lady with significant comorbidities and her age, we elected to accept this fixed position of the cage. I then elected to bone graft the stepoff at C7 to T1 so that new bone would form as a buttress additionally to what there is in situ. The rind of tissue was then closed with No. 2-0 Vicryl sutures to augment fixation of the cage in situ, disallowing any further drift anteriorly. The actual cage was grasped with a Colton and wiggled and maneuvered vigorously and found to be completely solid; hence, we decided to leave this well alone. The tissues were washed thoroughly. A 1/8-inch drain was inserted and the closure was as follows : Muscle with 2-0 Vicryl, subcutaneous 2-0 Vicryl, skin 3-0 Monocryl with Steri- Strips. The patient was placed on the Tmo table and rotated with the Tom table clamp process, much like a rotisserie, and then the Vogt frame, which had been placed onto the scalp prior to the flip, was then connected to the outrigger posts and the patient was then in an anatomical position. The hair was trimmed appropriately, draping was with Betadine scrub solution, wiped off, with alcohol DuraPrep applied for the 2nd component of the operation as follows. A midline longitudinal incision from the occiput right down to approximately T4. Subperiosteal dissection performed. The lamina I clearly identified and found from C2 right down to T4. Self-retaining retractors inserted. The spinous processes were resected appropriately. Once the spinous had been resected, lateral mass screws with the Precision Instrumentation System were inserted. We used the lateral fluoroscopic x-ray to help us guide the correct orientation of the screws so they were parallel to the facets of the joints as possible and in the lateral mass. Screws were seated at C3, C4, C5, C6, C7, and T1 and 2 additional pedicle screws were inserted at T2 and T3, both left and right-hand side. Hybrid rods were then cut to the size of the appropriate positioning and those rods bent to be accepted very readily into the tulips of each screw. The Titan caps were inserted. Minimal persuasion of deya into the screwheads was necessary because of the excellent contouring of the rods into the actual lordotic position of the cervicothoracic junction. The caps were inserted. The torque device was utilized to tighten the caps appropriately. The liberal bone grafting, which was a combination of autologous bone expanded with allograft bone chips and Juany, impacted into the intertransverse plane on the lateral side as well as centrally. The wounds were thoroughly lavaged. Closure was a complex wound closure: Muscle 1 Vicryl, fascia 1 Vicryl, subcutaneous 1 and 2-0 Vicryl in layers, and skin 3-0 Monocryl with Steri-Strips. Drain was 1/8-inch Hemovac x1. The patient was then repositioned supine with a careful control of the Vogt frame. The Vogt frame had been removed. The patient was extubated and directly transferred to the ICU. Overall, an extremely difficult case. Difficult in terms of technical surgical events, particularly anteriorly, but also difficult in terms of decision making with what to do with the cage. At the end of the entire procedure, the postoperative x-rays, as seen on fluoroscopy, were excellent. PLAN: Soft collar 3 months and routine postoperative care, such as perioperative antibiotics, pain management, and mobilization as soon as possible. MD SAWYER Tavares/[id number] MTDD
[2018-08-04] MEDS ORDERED: PT OWN MED DRAWER 7, Y5N ONE (05:49)
[2018-08-04] MEDS: CEFAZOLIN 1 GM/D5W 1 GM/50 ML BAG IVPB SCH ×2 (06:09→14:00)
[2018-08-04 06:28] LABS: HEMATOCRIT 37.2 % (32.4-45.2); HEMOGLOBIN 12.5 GM/dL (10.7-15.3); MCH 31.4 pg (25.7-33.7); MCHC 33.6 g/dl (32.0-36.0); MEAN CELL VOLUME 93.4 fl (80-96); MEAN PLT VOLUME 9.1 fl (7.5-11.1); PLATELET COUNT 148 K/MM3 (134-434); RBC 3.98 M/mm3 (3.60-5.2); RDW 12.8 % (11.6-15.6); WHITE BLOOD COUNT 12.2 K/mm3 (4.0-10.0)
[2018-08-04 07:04] LABS: ANION GAP 9 MMOL/L (8-16); BLOOD UREA NITROGEN 12 mg/dL (7-18); CALCIUM 7.4 mg/dL (8.5-10.1); CHLORIDE 100 mmol/L (98-107); CO2 25 mmol/L (21-32); CREATININE 0.6 mg/dL (0.55-1.3); GLUCOSE,RANDOM 237 mg/dL (74-106); MAGNESIUM 1.5 mg/dL (1.8-2.4); PHOSPHOROUS 3.4 mg/dL (2.5-4.9); SODIUM 135 mmol/L (136-145)
--- NOTE | 2018-08-04 08:42 | PN ---
Progress Note (short form) - Note Progress Note: POD 1 VSS Awake, following commands Speech raspy, soft Neck wound clean and dry, minimal drainage. Neuro grossly intact Hgb 12 Stable, neuro status to be evaluated when more alert.
[2018-08-04] MEDS ORDERED: MAGNESIUM OXIDE 400 MG TABLET (FP) PO ONE (08:45)
--- NOTE | 2018-08-04 08:47 | PN ---
Physical Exam: SUBJECTIVE: Patient seen and examined this AM. She states that she is feeling well today, still with very quiet raspy voice and complaining of pain being present but controlled with medications and SWEATBAND SHAPER pump. OBJECTIVE: Vital Signs Period Temp Pulse Resp BP Sys/Beckwith Pulse Ox Last 24 Hr 97.4 F-98.2 F 92-108 20-24 0-152/0-80 90-95 GEN: Awake, alert and oriented, no acute distress HEENT: PERRL, dry mucus membranes NECK: supple, dressing clean and dry with drains in place HEART: RRR, no murmurs noted LUNGS: CTA b/l ABDOMEN: Soft, nontender, hypoactive bowel sounds NEURO: No neurological deficits noted. Good strength and sensation in b/l UE Laboratory Results - last 24 hr 08/03/18 08/04/18 08/04/18 06:58 05:30 05:30 WBC 12.2 H RBC 3.98 Hgb 12.5 Hct 37.2 MCV 93.4 MCH 31.4 MCHC 33.6 RDW 12.8 Plt Count 148 D MPV 9.1 Sodium 135 L Potassium 4.0 Chloride 100 Carbon Dioxide 25 Anion Gap 9 BUN 12 Creatinine 0.6 Creat Clearance w eGFR 96.19 Random Glucose 237 H Calcium 7.4 L Phosphorus 3.4 Magnesium 1.5 L Blood Type AB POSITIVE Antibody Screen Negative Active Medications Generic Name Dose Route Start Last Admin Trade Name Freq PRN Reason Stop Dose Admin Amlodipine Besylate 5 mg 08/04/18 10:00 Norvasc - PO DAILY [facility] Buspirone HCl 10 mg/ Buspirone 15 mg 08/04/18 10:00 HCl 5 mg PO BID [facility] Ezetimibe 10 mg 08/04/18 10:00 Zetia - PO DAILY NGA Fentanyl 25 mcg 08/03/18 11:22 Sublimaze Injection - IVPUSH [id number] PRN PAIN-PACU ORDER X 4 DOSES ONLY Hydromorphone HCl 10 mg 08/03/18 11:30 08/03/18 21:53 Dilaudid Fire Control Technician B - SWEATBAND SHAPER 08/10/18 11:22 10 mg SWEATBAND SHAPER NGA Administration Protocol Cefazolin Sodium 1 gm in 50 mls @ 100 mls/hr 08/03/18 22:00 08/04/18 06:09 Ancef 1 Gm Premixed Ivpb - IVPB 08/04/18 14:29 100 mls/hr Q8H NGA Administration Lactated Ringer's 1,000 mls @ 125 mls/hr 08/03/18 17:15 08/03/18 18:00 Lactated Ringers Solution IV 125 mls/hr ASDIR NGA Administration Magnesium Oxide 800 mg 08/04/18 08:45 Mag-Ox - PO 08/04/18 08:46 ONCE ONE Metoprolol Tartrate 50 mg 08/04/18 10:00 Lopressor - PO DAILY NGA Ondansetron HCl 4 mg 08/03/18 17:03 Zofran Injection IVPUSH Q6H PRN NAUSEA AND/OR VOMITING Pantoprazole Sodium 40 mg 08/04/18 10:00 Protonix - PO DAILY NGA Repaglinide 0.5 mg 08/04/18 07:00 Prandin - PO TIDAC NGA Sertraline HCl 75 mg 08/04/18 22:00 Zoloft - PO HS NGA ASSESSMENT/PLAN: 77 year old female with PMH significant for HTN, HLD, NIDDM, cervical spine stenosis and cervical rediculopathy s/p cervical surgery complicated by right jugular vein laceration and post surgical course complicated by NSTEMI admitted to the ICU today s/p JOSE anterior cervical spine, C3-T3 posterior instrumented spinal fusion. POST-OP -Uncomplicated procedure with 250 cc blood loss and 70 cc CellSaver returned in addition to 2L crystalloid -Pain control with SWEATBAND SHAPER as per anesthesia -OOB as tolerated -Incentive spirometry -D/C rene when ambulating -Soft Cervical collar -Monitor overnight for airway compromise with anterior approach noted and hx of vascular complications -Physical Therapy evaluation -Monitor for voice recovery/improvement prior to advancing diet NEURO -monitor for neurovascular compromise, stable overnight CARDIOVASCULAR -HTN Norvasc 5 mg PO Daily -HLD Ezetimibe ENDOCRINE -NIDDM BGMs and Insulin sliding scale PULMONARY -incentive spirometry ID -d/c Ancef after 24 hours FEN -LR @ 125 cc/hr, d/c once tolerating diet -monitor and replete -Advance as tolerated PROPHYLAXIS -Mechanical prophylaxis only DISPOSITION Continue to monitor in ICU Visit type - Emergency Visit Emergency Visit: No - New Patient This patient is new to me today: No - Critical Care Critical Care patient: Yes Total Critical Care Time (in minutes): 36 Critical Care Statement: The care of this patient involved high complexity decision making to prevent further life threatening deterioration of the patient 's condition and/or to evaluate & treat vital organ system(s) failure or risk of failure.
[2018-08-04] MEDS ORDERED: MAGNESIUM SULF 50% (8.12 MEQ/2 ML-1 GM VIAL) IVPB ONE (09:00)
[2018-08-04] MEDS: REPAGLINIDE 0.5 MG TABLET (FP) PO SCH ×3 (09:01→17:06)
[2018-08-04] MEDS: BUSPIRONE HCL 10 MG, BUSPIRONE HCL 5 MG PO SCH ×2 (09:01→22:17)
[2018-08-04] MEDS: METOPROLOL TARTRATE 50 MG TABLET (FP) PO SCH (09:01)
[2018-08-04] MEDS: PANTOPRAZOLE 40 MG TABLET (FP) PO SCH (09:02)
[2018-08-04] MEDS: amLODIPine BESYLATE 5 MG TABLET (FP) PO SCH (09:02)
[2018-08-04] MEDS: EZETIMIBE 10 MG TABLET (FP) PO SCH (09:03)
--- NOTE | 2018-08-04 09:38 | PN ---
Progress Note, Physician Chief Complaint: POST-OP History of Present Illness: Patient seen and examined at bedside. No overnight events. No new complaints. POD #1 s/p JOSE anterior cervical spine, C3-T3 posterior instrumented spinal fusion. Had trouble with diet this morning, food felt stuck. Pain well controlled with ACCOUNTS ADJUSTABLE CLERK. Denies passing flatus. Denies CP, OSCAR, SOB, palpitations, abdominal pain, nausea or vomiting. - Current Medication List Current Medications: Active Medications Amlodipine Besylate (Norvasc -) 5 mg PO DAILY [facility] Last Admin: 08/04/18 09:02 Dose: Not Given Buspirone HCl 10 mg/ Buspirone (HCl 5 mg) 15 mg PO BID [facility] Last Admin: 08/04/18 09:01 Dose: Not Given Ezetimibe (Zetia -) 10 mg PO DAILY [facility] Last Admin: 08/04/18 09:03 Dose: Not Given Fentanyl (Sublimaze Injection -) 25 mcg IVPUSH [id number] PRN PRN Reason: PAIN-PACU ORDER X 4 DOSES ONLY Hydromorphone HCl (Dilaudid Garment Looper -) 10 mg ACCOUNTS ADJUSTABLE CLERK ACCOUNTS ADJUSTABLE CLERK [facility]; Protocol Stop: 08/10/18 11:22 Last Admin: 08/03/18 21:53 Dose: 10 mg Cefazolin Sodium (Ancef 1 Gm Premixed Ivpb -) 1 gm in 50 mls @ 100 mls/hr IVPB Q8H [facility] Stop: 08/04/18 14:29 Last Admin: 08/04/18 06:09 Dose: 100 mls/hr Lactated Ringer's (Lactated Ringers Solution) 1,000 mls @ 125 mls/hr IV ASDIR [facility] Last Admin: 08/03/18 18:00 Dose: 125 mls/hr Metoprolol Tartrate (Lopressor -) 50 mg PO DAILY [facility] Last Admin: 08/04/18 09:01 Dose: Not Given Ondansetron HCl (Zofran Injection) 4 mg IVPUSH Q6H PRN PRN Reason: NAUSEA AND/OR VOMITING Pantoprazole Sodium (Protonix -) 40 mg PO DAILY [facility] Last Admin: 08/04/18 09:02 Dose: Not Given Repaglinide (Prandin -) 0.5 mg PO TIDAC [facility] Last Admin: 08/04/18 09:01 Dose: Not Given Sertraline HCl (Zoloft -) 75 mg PO HS NGA - Objective Vital Signs: Vital Signs Temperature 98.2 F 08/04/18 06:00 Pulse Rate 86 08/04/18 08:00 Respiratory Rate 26 H 08/04/18 08:00 Blood Pressure 131/64 08/04/18 08:00 O2 Sat by Pulse Oximetry (%) 98 08/04/18 09:00 Constitutional: Yes: Well Nourished, No Distress, Calm Eyes: Yes: Conjunctiva Clear, EOM Intact HENT: Yes: Atraumatic, Normocephalic Neck: Yes: Supple, Trachea Midline, Decreased ROM, Tenderness, Other (Surgical bandages appear clean and dry. Drains in place) Cardiovascular: Yes: Regular Rate and Rhythm, S1, S2. No: JVD, Gallop, Murmur, Rub Respiratory: Yes: Regular, CTA Bilaterally. No: Accessory Muscle Use Gastrointestinal: Yes: Normal Bowel Sounds, Soft, Abdomen, Obese. No: Distention, Tenderness Extremities: No: Calf Tenderness, Cold, Cyanosis, Deformity Edema: No Peripheral Pulses WNL: Yes Peripheral Pulses: Left Doralis Pedis: 2+, Right Dorsalis Pedis: 2+ Wound/Incision: Yes: Dressing Dry and Intact, Draining. No: Bleeding Neurological: Yes: Alert, Oriented, Cran Nerves II-XII Intact. No: Facial Droop , Paresthesia ...Motor Strength: WNL Psychiatric: Yes: Alert, Oriented Labs: CBC, BMP 08/04/18 05:30 08/04/18 05:30 Problem List - Problems (1) S/P cervical spinal fusion Assessment/Plan: s/p JOSE anterior cervical spine, C3-T3 posterior instrumented spinal fusion. * Uncomplicated procedure with 250 cc blood loss and 70 cc CellSaver returned in addition to 2L crystalloid * Pain control with ACCOUNTS ADJUSTABLE CLERK as per anesthesia * OOB as tolerated * Incentive spirometry * D/C rene when ambulating * Soft Cervical collar * Continue to monitor for airway compromise with anterior approach noted and hx of vascular complications (2) Diabetes Assessment/Plan: * ADA diet * BGM TIDAC * ISS TIDAC (3) HTN (hypertension) Assessment/Plan: * Amlodipine Besylate (Norvasc -) 5 mg PO DAILY * Metoprolol Tartrate (Lopressor -) 50 mg PO DAILY (4) HLD (hyperlipidemia) Assessment/Plan: * Ezetimibe (Zetia -) 10 mg PO DAILY (5) Anxiety and depression Assessment/Plan: * Sertraline HCl (Zoloft -) 75 mg PO HS (6) DVT prophylaxis Assessment/Plan: SCD's bilaterally. Assessment/Plan Continue's to need ICU level of care.
--- NOTE | 2018-08-04 13:05 | PN ---
Teaching Attending Note Name of Resident: Gio March ATTENDING PHYSICIAN STATEMENT I saw and evaluated the patient. I reviewed the resident's note and discussed the case with the resident. I agree with the resident's findings and plan as documented. SUBJECTIVE: Pt seen and examined in the ICU. c/o pain at surgical site. Voice weak, unable to phonate. No nausea or vomiting. No shortness of breath or chest pain. OBJECTIVE: Vital Signs Period Temp Pulse Resp BP Sys/Beckwith Pulse Ox Last 24 Hr 97.4 F-99.2 F 85-108 20-28 0-152/0-80 90-98 Intake & Output 08/01/18 08/02/18 08/03/18 08/04/18 23:59 23:59 23:59 23:59 Intake Total 1975 1550 Output Total 2150 670 Balance -175 880 Weight 63.049 kg Gen: NAD at rest Heart: RRR Lung: decreased breath sounds at the bases Abd: soft, nontender Ext: no edema CBC, BMP 08/04/18 05:30 08/04/18 05:30 Active Medications Amlodipine Besylate (Norvasc -) 5 mg PO DAILY [facility] Last Admin: 08/04/18 09:02 Dose: Not Given Buspirone HCl 10 mg/ Buspirone (HCl 5 mg) 15 mg PO BID [facility] Last Admin: 08/04/18 09:01 Dose: Not Given Ezetimibe (Zetia -) 10 mg PO DAILY [facility] Last Admin: 08/04/18 09:03 Dose: Not Given Fentanyl (Sublimaze Injection -) 25 mcg IVPUSH [id number] PRN PRN Reason: PAIN-PACU ORDER X 4 DOSES ONLY Hydromorphone HCl (Dilaudid Registered Diet Technician -) 10 mg MEDICATION NURSE MEDICATION NURSE [facility]; Protocol Stop: 08/10/18 11:22 Last Admin: 08/03/18 21:53 Dose: 10 mg Cefazolin Sodium (Ancef 1 Gm Premixed Ivpb -) 1 gm in 50 mls @ 100 mls/hr IVPB Q8H [facility] Stop: 08/04/18 14:29 Last Admin: 08/04/18 06:09 Dose: 100 mls/hr Lactated Ringer's (Lactated Ringers Solution) 1,000 mls @ 125 mls/hr IV ASDIR [facility] Last Admin: 08/03/18 18:00 Dose: 125 mls/hr Metoprolol Tartrate (Lopressor -) 50 mg PO DAILY [facility] Last Admin: 08/04/18 09:01 Dose: Not Given Ondansetron HCl (Zofran Injection) 4 mg IVPUSH Q6H PRN PRN Reason: NAUSEA AND/OR VOMITING Pantoprazole Sodium (Protonix -) 40 mg PO DAILY [facility] Last Admin: 08/04/18 09:02 Dose: Not Given Repaglinide (Prandin -) 0.5 mg PO TIDAC [facility] Last Admin: 08/04/18 09:01 Dose: Not Given Sertraline HCl (Zoloft -) 75 mg PO [facility] ASSESSMENT AND PLAN: Failed hardware cervical spine s/p JOSE Anterior Cervical Spine/C3-T3 Posterior Instrumentation/Posterior Arthrodesis HTN DM Hyperlipidemia - pain control - incentive spirometry - monitor drain output - on empiric antibiotics - aspiration precautions - O2 to keep SpO2 >90% - DVT prophylaxis
[2018-08-04] MEDS: HYDROmorphone *PCA* 10MG/50ML DISP.SYRIN PCA SCH (13:57)
--- NOTE | 2018-08-04 14:59 | PN ---
Progress Note (short form) - Note Progress Note: Anesthesia Post op/Pain Pt seen and examined S:alert and awake mostly comfortable with occasional soreness O: Vital Signs Temperature 99.2 F 08/04/18 10:00 Pulse Rate 85 08/04/18 12:00 Respiratory Rate 26 H 08/04/18 12:00 Blood Pressure 123/58 L 08/04/18 12:00 O2 Sat by Pulse Oximetry (%) 98 08/04/18 09:00 CBC, BMP 08/04/18 05:30 08/04/18 05:30 Current Active Problems DVT prophylaxis (Acute) HLD (hyperlipidemia) (Acute) S/P cervical spinal fusion (Acute) Doing well post op Uses MEDICAL CLAIMS ASSISTANT Continue current care Mihir Zambrano
--- NOTE | 2018-08-04 18:05 | PN ---
Teaching Attending Note Name of Resident: True Richards ATTENDING PHYSICIAN STATEMENT I saw and evaluated the patient. I reviewed the resident's note and discussed the case with the resident. I agree with the resident's findings and plan as documented. SUBJECTIVE: Pain controlled with MANAGER OF SECURITY. Denies limb numbness/weakness/tingling OBJECTIVE: Afebrile, Hemodynamically Stable. Last Vital Signs Temp Pulse Resp BP Pulse Ox 99.2 F 82 27 H 117/56 L 98 08/04/18 14:00 08/04/18 14:00 08/04/18 14:00 08/04/18 14:00 08/04/18 09:00 HEENT - Neck dressing with drains in situ. Heart - S1, S2, RRR Lungs - clear to auscultation Abdomen - Soft, non-tender. Bowel Sounds Extremities - No calf tenderness. No edema. Laboratory Results - last 24 hr 08/04/18 08/04/18 05:30 05:30 WBC 12.2 H RBC 3.98 Hgb 12.5 Hct 37.2 MCV 93.4 MCH 31.4 MCHC 33.6 RDW 12.8 Plt Count 148 D MPV 9.1 Sodium 135 L Potassium 4.0 Chloride 100 Carbon Dioxide 25 Anion Gap 9 BUN 12 Creatinine 0.6 Creat Clearance w eGFR 96.19 Random Glucose 237 H Calcium 7.4 L Phosphorus 3.4 Magnesium 1.5 L Current Medications Generic Name Dose Route Start Last Admin Trade Name Freq PRN Reason Stop Dose Admin Amlodipine Besylate 5 mg 08/04/18 10:00 08/04/18 09:02 Norvasc - PO Not Given DAILY [facility] Buspirone HCl 10 mg/ Buspirone 15 mg 08/04/18 10:00 08/04/18 09:01 HCl 5 mg PO Not Given BID [facility] Ezetimibe 10 mg 08/04/18 10:00 08/04/18 09:03 Zetia - PO Not Given DAILY [facility] Fentanyl 25 mcg 08/03/18 11:22 Sublimaze Injection - IVPUSH [id number] PRN PAIN-PACU ORDER X 4 DOSES ONLY Hydromorphone HCl 10 mg 08/03/18 11:30 08/04/18 13:57 Dilaudid Covering Machine Operator Helper - MANAGER OF SECURITY 08/10/18 11:22 Not Given MANAGER OF SECURITY [facility] Protocol Lactated Ringer's 1,000 mls @ 125 mls/hr 08/03/18 17:15 08/03/18 18:00 Lactated Ringers Solution IV 125 mls/hr ASDIR [facility] Administration Metoprolol Tartrate 50 mg 08/04/18 10:00 08/04/18 09:01 Lopressor - PO Not Given DAILY [facility] Ondansetron HCl 4 mg 08/03/18 17:03 Zofran Injection IVPUSH Q6H PRN NAUSEA AND/OR VOMITING Pantoprazole Sodium 40 mg 08/04/18 10:00 08/04/18 09:02 Protonix - PO Not Given DAILY [facility] Repaglinide 0.5 mg 08/04/18 07:00 08/04/18 17:06 Prandin - PO Not Given TIDAC [facility] Sertraline HCl 75 mg 08/04/18 22:00 Zoloft - PO HS [facility] ASSESSMENT AND PLAN: 78 year old Female with HTN, HLD, DM 2, Anxiety/Depression, DJD C-Spine ( Cervical Spine Stenosis with cervical radiculopathy s/p prior cervical Spine Sx with post-op NSTEMI and R jugular venous laceration), POD 1 s/p Cervical Laminectomy/spinal fusion. 1. POD 1 s/p Cervical Laminectomy/Spinal Fusion C3-T3 Post-op instructions as per Surgery Pain control with MANAGER OF SECURITY SCDs Incentive Spirometry PT IV hydration 2. HTN - Continue Metoprolol, Norvasc 3. DM 2 - Novolog sliding scale. 4. Depression/Anxiety - Continue Zoloft, Buspirone 5. Hypomagnesemia - repleted GI Px - PPI
[2018-08-04] MEDS: LACTATED RINGERS SOLUTION 1,000 ML IV SCH (18:41)
--- NOTE | 2018-08-04 20:38 | PN ---
Progress Note (short form) - Note Progress Note: Seen by Dr. Velasco. Both drains removed Recommended IV Decadron 10 mg once and Mucinex.
[2018-08-04] MEDS ORDERED: DEXAMETHASONE SOD PHOSPHATE 10 MG/1 ML VIAL IVPUSH ONE (20:45)
[2018-08-04] MEDS: guaiFENesin 200 MG/10 ML 10 ML UNIT-DOSE CUPS PO SCH (22:13)
[2018-08-04] MEDS: SERTRALINE HCL 50 MG TABLET (FP) PO SCH (22:17)
[2018-08-04] MEDS ORDERED: ACETAMINOPHEN 1000 MG/100 ML VIAL (NON FORMULARY) IVPB PRN (23:23)
[2018-08-05] MEDS: REPAGLINIDE 0.5 MG TABLET (FP) PO SCH ×2 (06:01→11:37)
[2018-08-05 06:29] LABS: HEMOGLOBIN 13.2 GM/dL (10.7-15.3); MCH 31.5 pg (25.7-33.7); MCHC 33.8 g/dl (32.0-36.0); MEAN CELL VOLUME 93.3 fl (80-96); MEAN PLT VOLUME 9.1 fl (7.5-11.1); PLATELET COUNT 147 K/MM3 (134-434); RBC 4.19 M/mm3 (3.60-5.2); RDW 12.9 % (11.6-15.6); WHITE BLOOD COUNT 10.9 K/mm3 (4.0-10.0)
[2018-08-05 06:53] LABS: ANION GAP 9 MMOL/L (8-16); BLOOD UREA NITROGEN 11 mg/dL (7-18); CALCIUM 7.9 mg/dL (8.5-10.1); CHLORIDE 102 mmol/L (98-107); CO2 27 mmol/L (21-32); CREATININE 0.5 mg/dL (0.55-1.3); GLUCOSE,RANDOM 223 mg/dL (74-106); MAGNESIUM 2.4 mg/dL (1.8-2.4); PHOSPHOROUS 2.4 mg/dL (2.5-4.9); POTASSIUM 3.8 mmol/L (3.5-5.1); SODIUM 137 mmol/L (136-145)
[2018-08-05] MEDS ORDERED: NAPH,MB-DB/K PH,MBDB POWDER PACKET PO ONE (07:27)
--- NOTE | 2018-08-05 08:20 | PN ---
Physical Exam: SUBJECTIVE: Patient seen and examined this AM. She states she is doing well. tolerating liquids but unable to swallow thick foods and solids due to a feeling that they are "getting stuck." Still with whispered voice. OBJECTIVE: Vital Signs Period Temp Pulse Resp BP Sys/Beckwith Pulse Ox Last 24 Hr 99.2 F-99.8 F 82-101 20-28 117-158/53-87 96-98 GEN: Awake, alert and oriented, no acute distress HEENT: PERRL, dry mucus membranes NECK: supple, dressing clean and dry with drains in place HEART: RRR, no murmurs noted LUNGS: CTA b/l ABDOMEN: Soft, nontender, hypoactive bowel sounds NEURO: No neurological deficits noted. Good strength and sensation in b/l UE Laboratory Results - last 24 hr 08/05/18 08/05/18 05:30 05:30 WBC 10.9 H RBC 4.19 Hgb 13.2 Hct 39.0 MCV 93.3 MCH 31.5 MCHC 33.8 RDW 12.9 Plt Count 147 MPV 9.1 Sodium 137 Potassium 3.8 Chloride 102 Carbon Dioxide 27 Anion Gap 9 BUN 11 Creatinine 0.5 L Creat Clearance w eGFR 118.71 Random Glucose 223 H Calcium 7.9 L Phosphorus 2.4 L Magnesium 2.4 Active Medications Generic Name Dose Route Start Last Admin Trade Name Freq PRN Reason Stop Dose Admin Acetaminophen 1,000 mg 08/04/18 23:23 Ofirmev Injection - IVPB Q6H PRN FEVER Amlodipine Besylate 5 mg 08/04/18 10:00 08/04/18 09:02 Norvasc - PO Not Given DAILY [facility] Buspirone HCl 10 mg/ Buspirone 15 mg 08/04/18 10:00 08/04/18 22:17 HCl 5 mg PO Not Given BID [facility] Ezetimibe 10 mg 08/04/18 10:00 08/04/18 09:03 Zetia - PO Not Given DAILY [facility] Guaifenesin 10 ml 08/04/18 22:00 08/04/18 22:13 Robitussin - PO 10 ml BID [facility] Administration Hydromorphone HCl 10 mg 08/03/18 11:30 08/04/18 13:57 Dilaudid Post Closer - REDYE HAND 08/10/18 11:22 Not Given REDYE HAND [facility] Protocol Lactated Ringer's 1,000 mls @ 75 mls/hr 08/05/18 07:44 Lactated Ringers Solution IV ASDIR [facility] Metoprolol Tartrate 50 mg 08/04/18 10:00 08/04/18 09:01 Lopressor - PO Not Given DAILY [facility] Ondansetron HCl 4 mg 08/03/18 17:03 Zofran Injection IVPUSH Q6H PRN NAUSEA AND/OR VOMITING Pantoprazole Sodium 40 mg 08/04/18 10:00 08/04/18 09:02 Protonix - PO Not Given DAILY [facility] Repaglinide 0.5 mg 08/04/18 07:00 08/05/18 06:01 Prandin - PO Not Given TIDAC [facility] Sertraline HCl 75 mg 08/04/18 22:00 08/04/18 22:17 Zoloft - PO Not Given HS [facility] ASSESSMENT/PLAN: 77 year old female with PMH significant for HTN, HLD, NIDDM, cervical spine stenosis and cervical rediculopathy s/p cervical surgery complicated by right jugular vein laceration and post surgical course complicated by NSTEMI admitted to the ICU today s/p JOSE anterior cervical spine, C3-T3 posterior instrumented spinal fusion. POST-OP -Uncomplicated procedure with 250 cc blood loss and 70 cc CellSaver returned in addition to 2L crystalloid -Pain control with REDYE HAND as per anesthesia -OOB as tolerated -Incentive spirometry -D/C rene when ambulating -Soft Cervical collar -Physical Therapy evaluation -prior vagus nerve trauma with vocal cord hemiparalysis noted, pt with difficulty with solids prior to surgery -Speech and swallow eval noted, for MBS today -Likely stable for transfer to floors, will discuss with surgery NEURO -monitor for neurovascular compromise, stable CARDIOVASCULAR -HTN Norvasc 5 mg PO Daily -HLD Ezetimibe ENDOCRINE -NIDDM BGMs and Insulin sliding scale PULMONARY -incentive spirometry FEN -LR @ 125 cc/hr, d/c once tolerating diet -monitor and replete -Advance as tolerated, modified barium study today PROPHYLAXIS -Mechanical prophylaxis only DISPOSITION Likely stable for transfer to med/surg, will discuss with surgery Visit type - Emergency Visit Emergency Visit: Yes ED Registration Date: 08/03/18 Care time: The patient presented to the Emergency Department on the above date and was hospitalized for further evaluation of their emergent condition. - New Patient This patient is new to me today: No - Critical Care Critical Care patient: No
[2018-08-05] MEDS: LACTATED RINGERS SOLUTION 1,000 ML IV SCH ×2 (08:46→23:00)
[2018-08-05] MEDS ORDERED: PT OWN MED DRAWER 7, Y5N ONE ×2 (09:35→21:59)
[2018-08-05] MEDS: amLODIPine BESYLATE 5 MG TABLET (FP) PO SCH (09:43)
[2018-08-05] MEDS: guaiFENesin 200 MG/10 ML 10 ML UNIT-DOSE CUPS PO SCH ×2 (09:43→21:55)
[2018-08-05] MEDS: PANTOPRAZOLE 40 MG TABLET (FP) PO SCH (09:43)
[2018-08-05] MEDS: METOPROLOL TARTRATE 50 MG TABLET (FP) PO SCH (09:43)
[2018-08-05] MEDS: BUSPIRONE HCL 10 MG, BUSPIRONE HCL 5 MG PO SCH ×2 (09:44→21:59)
[2018-08-05] MEDS: EZETIMIBE 10 MG TABLET (FP) PO SCH (09:45)
--- NOTE | 2018-08-05 10:04 | PN ---
Physical Exam: SUBJECTIVE: Patient seen and examined at bedside. Endorses difficulty swallowing. No acute events overnight. OBJECTIVE: Vital Signs Period Temp Pulse Resp BP Sys/Beckwith Pulse Ox Last 24 Hr 99.2 F-99.8 F 82-108 19-28 117-158/56-87 96 GENERAL: No acute distress, resting in bed, whispering HEAD: Normal with no signs of trauma. EYES: EOMI Sclera Clear ENT: MMM NECK: Trachea midline, full range of motion, supple. LUNGS: CTAB HEART: RRR nl S1S2 ABDOMEN: Soft NDNT EXTREMITIES: SCD's on. No CCE PSYCH: Normal mood, normal affect. SKIN: Warm, dry, normal turgor, no rashes or lesions noted Laboratory Results - last 24 hr 08/05/18 08/05/18 05:30 05:30 WBC 10.9 H RBC 4.19 Hgb 13.2 Hct 39.0 MCV 93.3 MCH 31.5 MCHC 33.8 RDW 12.9 Plt Count 147 MPV 9.1 Sodium 137 Potassium 3.8 Chloride 102 Carbon Dioxide 27 Anion Gap 9 BUN 11 Creatinine 0.5 L Creat Clearance w eGFR 118.71 Random Glucose 223 H Calcium 7.9 L Phosphorus 2.4 L Magnesium 2.4 Active Medications Generic Name Dose Route Start Last Admin Trade Name Freq PRN Reason Stop Dose Admin Acetaminophen 1,000 mg 08/04/18 23:23 Ofirmev Injection - IVPB Q6H PRN FEVER Amlodipine Besylate 5 mg 08/04/18 10:00 08/05/18 09:43 Norvasc - PO 5 mg DAILY [facility] Administration Buspirone HCl 10 mg/ Buspirone 15 mg 08/04/18 10:00 08/05/18 09:44 HCl 5 mg PO 15 mg BID [facility] Administration Ezetimibe 10 mg 08/04/18 10:00 08/05/18 09:45 Zetia - PO 10 mg DAILY [facility] Administration Guaifenesin 10 ml 08/04/18 22:00 08/05/18 09:43 Robitussin - PO 10 ml BID [facility] Administration Hydromorphone HCl 10 mg 08/03/18 11:30 08/04/18 13:57 Dilaudid Penciller - STRATEGIC INTELLIGENCE OFFICER 08/05/18 11:22 Not Given STRATEGIC INTELLIGENCE OFFICER [facility] Protocol Lactated Ringer's 1,000 mls @ 75 mls/hr 08/05/18 07:44 08/05/18 08:46 Lactated Ringers Solution IV 75 mls/hr ASDIR [facility] Administration Metoprolol Tartrate 50 mg 08/04/18 10:00 08/05/18 09:43 Lopressor - PO 50 mg DAILY [facility] Administration Ondansetron HCl 4 mg 08/03/18 17:03 Zofran Injection IVPUSH Q6H PRN NAUSEA AND/OR VOMITING Pantoprazole Sodium 40 mg 08/04/18 10:00 08/05/18 09:43 Protonix - PO 40 mg DAILY [facility] Administration Repaglinide 0.5 mg 08/04/18 07:00 08/05/18 06:01 Prandin - PO Not Given TIDAC [facility] Sertraline HCl 75 mg 08/04/18 22:00 08/04/18 22:17 Zoloft - PO Not Given HS [facility] ASSESSMENT/PLAN: 77 year old lady with a significant PMH of HTN, HLD, NIDDM, cervical spine stenosis and cervical rediculopathy s/p cervical surgery complicated by right jugular vein laceration and post surgical course complicated by NSTEMI admitted to the ICU today s/p JOSE anterior cervical spine, C3-T3 posterior instrumented spinal fusion. # s/p JOSE anterior cervical spine, C3-T3 posterior instrumented spinal fusion. POD #2 * Uncomplicated procedure with 250 cc blood loss and 70 cc CellSaver returned in addition to 2L crystalloid * Dilaudid STRATEGIC INTELLIGENCE OFFICER DC'ed/ PRN Morphine, Tylenol and oxycodone * OOB as tolerated * Incentive spirometry * D/C reen * Soft Cervical collar * Continue to monitor for airway compromise with anterior approach noted and hx of vascular complications * Evaluated by Tova Hair today. Recommends pt remian NPO. MBS---> Recommends [place] of chopped diet and thin liquids. * Consider ENT consult in light of voice hoarseness for prolonged period of time. # NSTEMI 10/2017 -Underwent Cardiac Cath at [facility] -Had 2 Stents placed at that time. Was on Plavix and ASA but is no longer. # Diabetes * ADA diet * BGM TIDAC * ISS TIDAC * Hold oral hypoglycemics # HTN * Amlodipine Besylate * Metoprolol Tartrate #HLD * Ezetimibe Anxiety and depression * Sertraline HCl # DVT ppx SCD's Visit type - Emergency Visit Emergency Visit: Yes ED Registration Date: 08/03/18 Care time: The patient presented to the Emergency Department on the above date and was hospitalized for further evaluation of their emergent condition. - New Patient This patient is new to me today: Yes Date on this admission: 08/05/18 - Critical Care Critical Care patient: Yes Total Critical Care Time (in minutes): 35 Critical Care Statement: The care of this patient involved high complexity decision making to prevent further life threatening deterioration of the patient 's condition and/or to evaluate & treat vital organ system(s) failure or risk of failure. - Discharge Referral Referred to [facility] Med P.C.: No
--- NOTE | 2018-08-05 10:25 | CONSULT ---
Admitting History and Physical - Primary Care Physician PCP: Fauzia Borjas - Admission History of Present Illness: 77 year old female with PMH significant for HTN, HLD, NIDDM, cervical spine stenosis and cervical rediculopathy s/p cervical surgery complicated by right jugular vein laceration and post surgical course complicated by NSTEMI admitted to the ICU today s/p JOSE anterior cervical spine, C3-T3 posterior instrumented spinal fusion. Pt referred for speech/swallow evaluation reported to be tolerating thin water but unable to swallow thick foods, solids and medication due to a feeling that they are "getting stuck" and weak voice Pt was on a reg diet/thin liquid but it was held due to difficulty. Now pt is NPO except for medication, but is unable to tolerate PO meds. Selected Entries 08/03/18 08/03/18 08/03/18 07:15 18:00 18:15 Diet Tolerated Supper Temperature 97.9 F 97.4 F L 97.6 F 08/03/18 08/03/18 08/03/18 18:30 18:45 19:00 Diet Tolerated Supper Temperature 97.4 F L 98 F 97.7 F 08/03/18 08/03/18 08/03/18 19:30 20:00 23:20 Diet Tolerated Refused Supper 0 Temperature 97.8 F 97.9 F 08/04/18 08/04/18 08/04/18 06:00 10:00 14:00 Diet Tolerated Supper Temperature 98.2 F 99.2 F 99.2 F 08/04/18 08/04/18 08/05/18 18:00 22:00 02:00 Diet Tolerated Poor Supper NPO Temperature 99.6 F 99.8 F H 99.4 F 08/05/18 08/05/18 06:00 10:00 Diet Tolerated Supper Temperature 99.3 F 99.3 F Laboratory Tests 08/04/18 08/05/18 05:30 05:30 WBC 12.2 H 10.9 H I spoke with pt and her brother who report pt has had a dysphonic voice since a previous surgery, with 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 She was able to swallow without coughing but solid food became stuck at times. She denies h/o PNA. She was seen by Dr. Smallwood of ENT and Allergy in the [place]. Upon review of EMR, I saw her October 2017 at which time voice improved from Aphonia to Dysphonia and was transferred to [facility]. VC paralysis was suspected and pt was referred for ENT/FEES evaluation. History Source: Patient, Medical Record Limitations to Obtaining History: No Limitations - Past Medical History Cardiovascular: Yes: HTN Psych: Yes: Anxiety Endocrine: Yes: Diabetes Mellitus - Advance Directives Advance Directives: Yes: Health Care Proxy - Smoking History Smoking history: Never smoked Have you smoked in the past 12 months: No - Alcohol/Substance Use Hx Alcohol Use: Yes (wine rarely) History - Admission Reason For Visit: CERVICAL DISC DISORDER - General Mental Status: Alert and Oriented, Awake and Alert, Able to Follow Commands Attention: Intact Ability to Follow Directions: Good Head/Neck Control: Fair (soft cervical collar) - Hearing Hearing: Normal Speech Evaluation - Communication Primary Language: MALTESE Oral Expression Ability: Yes: Severe Impairment - Speech Production Intelligibility: Yes: Mildly Impaired - Speech Characteristics Voice Loudness: Severely Soft/Quiet Voice Phonatory-based Quality: Yes: Dysphonia (Aphonia. No audible phonation/ adduction of vocal cords.) Speech Pattern: Impaired Articulation: Yes: Precise - Language/Auditory Comprehension Follows: Yes: 1 Stage Simple Commands - Swallow Evaluation/Bedside Assessment Current Nutritional Intake: NPO, Other (meds) Oral Secretions: Yes: WFL Dentition: Yes: Adequate Facial Symmetry at Rest: Symmetrical Facial Symmetry on Retraction: Symmetrical Against Resistance Opening: Normal Against Resistance Closing: Normal Pucker Lips: Normal Smile: Normal Lingual Movement: Normal, Symmetric Lingual Speed of Movement: Normal Lingual Movement Strgth Against Opposition: Normal Lingual Movement Characteristics: Normal Velopharyngeal Movement: Normal Laryngeal Movement: Able to Palpate Rate of Intake: WFL A-P Transit: WFL Coughing/Throat Clear: Yes (eye opening, gasp-Silent aspiration suspected) Recommendations - Speech Evaluation, Impression/Plan Impression: Aphonia. No audible phonation/adduction of vocal cords. 8 months h/ o dysphonic voice since a previous surgery, with impairment of right vagus nerve and right vocal cord paralysis, per pts's brother. With water trial,eye opening, gasp-Silent aspiration suspected - Dysphagia Impressions/Plan Swallowing Skills: Impaired Dysphagia Impressions: Ongoing Evaluation, Suspect Aspiration *Silent aspiration: cannot be R/O at bedside Recommendations: Modified Barium Swallow - Recommendations Diet Consistency: NPO Liquids: NPO
--- NOTE | 2018-08-05 11:47 | PN ---
Teaching Attending Note Name of Resident: Gio March ATTENDING PHYSICIAN STATEMENT I saw and evaluated the patient. I reviewed the resident's note and discussed the case with the resident. I agree with the resident's findings and plan as documented. SUBJECTIVE: Patient seen and examined in the ICU. Still with hoarseness of voice. No CP or SOB. Pain at the surgical site seems adequately controlled. To be seen by Speech and Swallow. Intake & Output 08/02/18 08/03/18 08/04/18 08/05/18 23:59 23:59 23:59 23:59 Intake Total 1975 3420 1230 Output Total 2150 1890 2700 Balance -175 1530 -1470 Weight 139 lb Last Vital Signs Temp Pulse Resp BP Pulse Ox 99.3 F 82 22 H 131/69 96 08/05/18 10:00 08/05/18 10:00 08/05/18 10:00 08/05/18 10:00 08/05/18 09:00 Active Medications Acetaminophen (Ofirmev Injection -) 1,000 mg IVPB Q6H PRN PRN Reason: FEVER Amlodipine Besylate (Norvasc -) 5 mg PO DAILY [facility] Last Admin: 08/05/18 09:43 Dose: 5 mg Buspirone HCl 10 mg/ Buspirone (HCl 5 mg) 15 mg PO BID [facility] Last Admin: 08/05/18 09:44 Dose: 15 mg Ezetimibe (Zetia -) 10 mg PO DAILY [facility] Last Admin: 08/05/18 09:45 Dose: 10 mg Guaifenesin (Robitussin -) 10 ml PO BID [facility] Last Admin: 08/05/18 09:43 Dose: 10 ml Lactated Ringer's (Lactated Ringers Solution) 1,000 mls @ 75 mls/hr IV ASDIR [facility] Last Admin: 08/05/18 08:46 Dose: 75 mls/hr Insulin Aspart (Novolog Vial Sliding Scale -) 0 vial SQ ACHS [facility]; Protocol Metoprolol Tartrate (Lopressor -) 50 mg PO DAILY [facility] Last Admin: 08/05/18 09:43 Dose: 50 mg Ondansetron HCl (Zofran Injection) 4 mg IVPUSH Q6H PRN PRN Reason: NAUSEA AND/OR VOMITING Pantoprazole Sodium (Protonix -) 40 mg PO DAILY [facility] Last Admin: 08/05/18 09:43 Dose: 40 mg Repaglinide (Prandin -) 0.5 mg PO TIDAC [facility] Last Admin: 08/05/18 11:37 Dose: Not Given Sertraline HCl (Zoloft -) 75 mg PO HS [facility] Last Admin: 08/04/18 22:17 Dose: Not Given OBJECTIVE: Gen: NAD at rest Heart: RRR Lung: decreased breath sounds at the bases Abd: soft, nontender Ext: no edema Laboratory Results - last 24 hr 08/05/18 08/05/18 08/05/18 05:30 05:30 11:32 WBC 10.9 H RBC 4.19 Hgb 13.2 Hct 39.0 MCV 93.3 MCH 31.5 MCHC 33.8 RDW 12.9 Plt Count 147 MPV 9.1 Sodium 137 Potassium 3.8 Chloride 102 Carbon Dioxide 27 Anion Gap 9 BUN 11 Creatinine 0.5 L Creat Clearance w eGFR 118.71 POC Glucometer 209 Random Glucose 223 H Calcium 7.9 L Phosphorus 2.4 L Magnesium 2.4 ASSESSMENT AND PLAN: Failed hardware cervical spine s/p JOSE Anterior Cervical Spine/C3-T3 Posterior Instrumentation/Posterior Arthrodesis HTN DM Hyperlipidemia - Speech and Swallow evaluation - pain control - incentive spirometry - monitor drain output - on empiric antibiotics - aspiration precautions - O2 to keep SpO2 >90% - DVT prophylaxis Dr Vanegas
[2018-08-05] MEDS ORDERED: INSULIN (NOVOLOG) ASPART 100 UNITS/ML 10ML VIAL SQ ONE (12:23)
[2018-08-05] MEDS: INSULIN SLIDING SCALE (NOVOLOG) 1 VIAL SQ SCH ×3 (12:24→22:00)
--- NOTE | 2018-08-05 17:01 | PATH ---
Surgical Pathology Report Patient Name: LAUREN SCHAEFER Med. Rec. #: [id number] /Age/Gender: 1940 (Age: 78) / F Account: [id number] Location: ICU [facility] Taken: 08/03/2018 Received: 08/04/2018 Reported: 08/05/2018 Physicians: Gustavo Velasco M.D. Specimen(s) Received ANTERIOR CERVICAL HARDWARE Clinical History Cervical disc disorder Final Diagnosis CERVICAL SPINE, ANTERIOR, HARDWARE, REMOVAL: SURGICAL HARDWARE. MACROSCOPIC DIAGNOSIS. Electronically Signed Una Erickson M.D. Gross Description Received fresh labeled "anterior hardware cervical spine," is a 7.2 x 1.7 x 0.2 cm mauricio metallic plate. Also received within the same container are 4 metallic screws averaging 1.3 cm in length. No soft tissue is present. No sections are submitted, gross only. /08/04/2018 saudi08/04/2018
[2018-08-05] MEDS ORDERED: METOPROLOL TARTRATE 5 MG/5 ML VIAL IVPUSH PRN (17:14)
[2018-08-05] MEDS ORDERED: DOCUSATE NA 100 MG/10 ML UNIT-DOSE CUPS PO ONE (17:48)
[2018-08-05] MEDS ORDERED: DOCUSATE NA 100 MG/10 ML UNIT-DOSE CUPS PO PRN (17:48)
[2018-08-05] MEDS ORDERED: ACETAMINOPHEN 325 MG TABLET (FP) PO PRN (17:52)
--- NOTE | 2018-08-05 17:57 | PN ---
Teaching Attending Note Name of Resident: Anila Watson ATTENDING PHYSICIAN STATEMENT I saw and evaluated the patient. I reviewed the resident's note and discussed the case with the resident. I agree with the resident's findings and plan as documented. SUBJECTIVE:seen at 10 am no fever or chills . No OSCAR . pain is well controlled withPCA , and rarely using it . no numbness tingling or weakness. she reports hoarse voice for past 6 months. she did not see any physician for it OBJECTIVE: NAD , AAOx3 CV: RRR Lungs: CTAB Ext: no edema or erythema. bd:soft, NT, Nd , no BS neuro : no facial drop. 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 sensation to light touch NL. 1+ knee jerk b/l, 2+ biceps b/l ASSESSMENT AND PLAN: 78 y/o lady with h/o HTN, HLD, DM 2, Anxiety/Depression, Cervical Spine Stenosis, s/p prior cervical Spine Sx with post-op NSTEMI and R jugular venous laceration, she was admitted for C instrumentation and spinal fusion 1- Cervical instrumentation and spinal fusion. : POD 2 .doing well - dc dilaudid [employer] and add PRN morphine, tylenol, and oxy - bowel regimen - PT eval - out of bed. - dc rene 2- Hoariness: chronic for about 6 months. suspect voca cord paralysis. not related to current surgery - need full w/u by ENT including laryngioscopy. - out pt eval - speech eval and MBS noted. diet 3- HTN: cont norvasc and BB . 4- H/o CAD s/p [place] 11/17 . records reviewed. patient was transferred for cath. - she stopped plavix in may. aspirin was held on 07/24/18 ofr sx and her card is aware of that. - Spoke to Dr. Velasco,safe to resume ASA in am . - Med rec to be updated 5- depression : cont zoloft DVT PX : SCDs for now. chemical can be started tomorrow evening
--- NOTE | 2018-08-05 18:13 | PN ---
Progress Note (short form) - Note Progress Note: POD #2 In ICU Awake Fully orientated Vitals and hematology / chemistry as per record C/O incisional posterior pain No limb pain Anterior wound Dry no swelling All drains were removed yesterday by myself Eating soft food Upper GI evaluation no pharyngeal abnormality. Neuro Fully intact Wounds All dressings dry Rene in situ PLAN D/C rene PT Attempt oob tomorrow Pain mx For soft collar
[2018-08-05] MEDS: morphine SULFATE 4 MG/ML VIAL IVPUSH PRN (18:36)
[2018-08-05] MEDS: SERTRALINE HCL 50 MG TABLET (FP) PO SCH (21:55)
[2018-08-05] MEDS: oxyCODONE HCL 5 MG TABLET PO PRN (21:56)
[2018-08-05] MEDS: SENNOSIDES 8.8 MG/5 ML BULK BOTTLE PO SCH (21:57)
[2018-08-06] MEDS: morphine SULFATE 4 MG/ML VIAL IVPUSH PRN ×2 (04:30→12:18)
[2018-08-06] MEDS: oxyCODONE HCL 5 MG TABLET PO PRN ×3 (06:04→23:51)
[2018-08-06] MEDS: INSULIN SLIDING SCALE (NOVOLOG) 1 VIAL SQ SCH ×4 (06:12→23:53)
[2018-08-06 06:19] LABS: HEMATOCRIT 33.7 % (32.4-45.2); HEMOGLOBIN 11.4 GM/dL (10.7-15.3); MCH 31.6 pg (25.7-33.7); MCHC 33.8 g/dl (32.0-36.0); MEAN CELL VOLUME 93.6 fl (80-96); MEAN PLT VOLUME 8.8 fl (7.5-11.1); PLATELET COUNT 140 K/MM3 (134-434); WHITE BLOOD COUNT 9.4 K/mm3 (4.0-10.0)
[2018-08-06 06:57] LABS: ANION GAP 7 MMOL/L (8-16); BLOOD UREA NITROGEN 17 mg/dL (7-18); CALCIUM 7.7 mg/dL (8.5-10.1); CHLORIDE 106 mmol/L (98-107); CO2 27 mmol/L (21-32); CREATININE 0.5 mg/dL (0.55-1.3); GLUCOSE,RANDOM 187 mg/dL (74-106); MAGNESIUM 2.4 mg/dL (1.8-2.4); PHOSPHOROUS 1.8 mg/dL (2.5-4.9); POTASSIUM 3.7 mmol/L (3.5-5.1); SODIUM 141 mmol/L (136-145)
[2018-08-06] MEDS: LACTATED RINGERS SOLUTION 1,000 ML IV SCH (09:44)
[2018-08-06] MEDS: guaiFENesin 200 MG/10 ML 10 ML UNIT-DOSE CUPS PO SCH ×2 (09:44→23:05)
[2018-08-06] MEDS: amLODIPine BESYLATE 5 MG TABLET (FP) PO SCH (09:44)
--- NOTE | 2018-08-06 09:44 | PN ---
Teaching Attending Note Name of Resident: Mihir Saldivar ATTENDING PHYSICIAN STATEMENT I saw and evaluated the patient. I reviewed the resident's note and discussed the case with the resident. I agree with the resident's findings and plan as documented. SUBJECTIVE: No fever or chills. No OSCAR , insomnia last night . tolerated diet. no BM yet , but cont to pass gas OBJECTIVE: NAD , AAOx3 CV: RRR, no MRG Lungs: CTAB Ext: no edema or erythema. Abd: soft, NT, Nd , no BS ASSESSMENT AND PLAN: 78 y/o lady with h/o HTN, HLD, DM 2, Anxiety/Depression, Cervical Spine Stenosis, s/p prior cervical Spine Sx with post-op NSTEMI and R jugular venous laceration, she was admitted for C instrumentation and spinal fusion 1- Cervical instrumentation and spinal fusion. : POD 3 .doing well - cont PRN morphine, tylenol, and oxy - bowel regimen - PT eval - out of bed. - dc rene 2- Hoariness: chronic for about 6 months. suspect vocal cord paralysis. not related to current surgery - need full w/u by ENT including laryngioscopy. - out pt eval 3- HTN: cont norvasc and BB. 4- H/o CAD s/p [place] 11/17 . - resume asa this am. Not on plavix - cont BB 5- Depression : cont zoloft DVT PX : SCDs for now. chemical prophylaxis this evening HLOC . will tx t Med-surg after d/w Sx
[2018-08-06] MEDS: BUSPIRONE HCL 10 MG, BUSPIRONE HCL 5 MG PO SCH ×2 (09:45→23:05)
[2018-08-06] MEDS: EZETIMIBE 10 MG TABLET (FP) PO SCH (09:45)
[2018-08-06] MEDS ORDERED: ASPIRIN COATED 81 MG TABLET.EC PO SCH (10:00)
[2018-08-06] MEDS ORDERED: PANTOPRAZOLE SODIUM 40 MG VIAL IVPUSH SCH (10:00)
[2018-08-06] MEDS ORDERED: POLYETHYLENE GLYCOL 3350 119 GM BTL PO SCH (10:00)
[2018-08-06] MEDS ORDERED: METOPROLOL TARTRATE 50 MG TABLET (FP) PO SCH (10:00)
--- NOTE | 2018-08-06 11:16 | PN ---
Physical Exam: SUBJECTIVE: Pt has no complaints today. No overnight events. Pt underwent MBS yesterday and passed without silent aspiration. Denies any numbness, tingling, weakness in extremities. Denies SOB, chest discomfort. Reports good pain control with current regiment. OBJECTIVE: Vital Signs Period Temp Pulse Resp BP Sys/Beckwith Pulse Ox Last 24 Hr 98.6 F-98.7 F 54-128 19-24 103-144/54-78 96-96 GENERAL: The patient is awake, alert, and fully oriented, in no acute distress. HEENT: NC/AT, PERRLA, MMM NECK: Surgical bandage overlying site, no blood seen through bandage LUNGS: CTA bilaterally, no wheezes, no crackles, no accessory muscle use. HEART: RRR, S1, S2 without murmur ABDOMEN: Soft, NT/ND, hypoactive bowel sounds, no guarding EXTREMITIES: 2+ pulses, warm, well-perfused, no edema. 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 Strength symmetrical in all extremity bardales. Sensation intact throughout. PSYCH: Normal mood, normal affect. SKIN: Warm, dry, no rashes or lesions noted Laboratory Results - last 24 hr 08/05/18 08/05/18 08/05/18 11:32 17:04 21:54 WBC RBC Hgb Hct MCV MCH MCHC RDW Plt Count MPV Sodium Potassium Chloride Carbon Dioxide Anion Gap BUN Creatinine Creat Clearance w eGFR POC Glucometer 209 160 201 Random Glucose Calcium Phosphorus Magnesium 08/06/18 08/06/18 08/06/18 05:17 05:30 05:30 WBC 9.4 RBC 3.60 Hgb 11.4 Hct 33.7 MCV 93.6 MCH 31.6 MCHC 33.8 RDW 13.0 Plt Count 140 MPV 8.8 Sodium 141 Potassium 3.7 Chloride 106 Carbon Dioxide 27 Anion Gap 7 L BUN 17 Creatinine 0.5 L Creat Clearance w eGFR 118.71 POC Glucometer 187 Random Glucose 187 H Calcium 7.7 L Phosphorus 1.8 L Magnesium 2.4 Active Medications Generic Name Dose Route Start Last Admin Trade Name Freq PRN Reason Stop Dose Admin Acetaminophen 650 mg 08/05/18 17:52 08/05/18 21:55 Tylenol - PO 650 mg Q6H PRN Administration PAIN LEVEL 1 - 3 Amlodipine Besylate 5 mg 08/04/18 10:00 08/06/18 09:44 Norvasc - PO 5 mg DAILY NGA Administration Aspirin 81 mg 08/06/18 10:00 08/06/18 09:43 Ecotrin - PO 81 mg DAILY NGA Administration Buspirone HCl 10 mg/ Buspirone 15 mg 08/04/18 10:00 08/06/18 09:45 HCl 5 mg PO 15 mg BID NGA Administration Docusate Sodium 300 mg 08/05/18 17:48 Colace Liquid - PO DAILY PRN CONSTIPATION Ezetimibe 10 mg 08/04/18 10:00 08/06/18 09:45 Zetia - PO 10 mg DAILY [facility] Administration Guaifenesin 10 ml 08/04/18 22:00 08/06/18 09:44 Robitussin - PO 10 ml BID NGA Administration Heparin Sodium (Porcine) 5,000 unit 08/06/18 20:00 Heparin - SQ TID [facility] Insulin Aspart 1 vial 08/05/18 16:30 08/06/18 06:12 Novolog Vial Sliding Scale - SQ 2 units ACHS NGA Administration Protocol Metoprolol Tartrate 50 mg 08/06/18 10:00 08/06/18 09:43 Lopressor - PO 50 mg DAILY [facility] Administration Morphine Sulfate 4 mg 08/05/18 17:51 08/06/18 04:30 Morphine Sulfate IVPUSH 08/06/18 17:50 4 mg Q3H PRN Administration PAIN LEVEL 7 - 10 Ondansetron HCl 4 mg 08/03/18 17:03 Zofran Injection IVPUSH Q6H PRN NAUSEA AND/OR VOMITING Oxycodone HCl 5 mg 08/05/18 17:52 08/06/18 06:04 Roxicodone - PO 5 mg Q4H PRN Administration PAIN LEVEL 4 - 6 Pantoprazole Sodium 40 mg 08/06/18 10:00 08/06/18 09:44 Protonix Iv IVPUSH 40 mg DAILY [facility] Administration Polyethylene Glycol 17 gm 08/06/18 10:00 Miralax (For Daily Use) - PO DAILY [facility] Senna 8.8 mg 08/05/18 22:00 08/05/18 21:57 Senna Oral Solution - PO 8.8 mg HS NGA Administration Sertraline HCl 75 mg 08/04/18 22:00 08/05/18 21:55 Zoloft - PO 75 mg HS NGA Administration ASSESSMENT/PLAN: POD #3 of Cervical instrumentation and spinal fusion Hoarsness HTN HLD CAD with prior [place] Depression --Pain well-controlled on Morphine and Oxycodone PRN regiment. Will assess for 24hr pain needs and hopeful for further decrease over few days --Continue Senna, Miralax, and Colace --Physical therapy evaluation and continued OOB as tolerated --Chronic hoarseness with possible improvement today. No relation to surgery in this admission. --Outpatient follow-up with ENT due to suspected vocal cord paralysis --Continue Norvasc 5mg Daily -Continue Metoprolol 50mg Daily --Continue ASA 81mg Daily --Continue Zetia and Zolofot home doses FEN: Fluids: D/c IVF; encourage PO intake Electrolyte abnormalities: Nutrition: PPX: DVT - SCDs given POD Dispo: Transfer to /S Case discussed with Dr. Indio Saldivar, DO - IM PGy-2 Visit type - Emergency Visit Emergency Visit: Yes ED Registration Date: 08/03/18 Care time: The patient presented to the Emergency Department on the above date and was hospitalized for further evaluation of their emergent condition. - New Patient This patient is new to me today: No - Critical Care Critical Care patient: No
[2018-08-06] MEDS ORDERED: PT OWN MED DRAWER 7, Y5N ONE ×2 (18:12→21:36)
[2018-08-06] MEDS: SENNOSIDES 8.8 MG/5 ML BULK BOTTLE PO SCH (22:03)
[2018-08-06] MEDS: NAPH,MB-DB/K PH,MBDB POWDER PACKET PO SCH (23:04)
[2018-08-06] MEDS: SERTRALINE HCL 50 MG TABLET (FP) PO SCH (23:05)
[2018-08-06] MEDS: HEPARIN NA (PORCINE) 5,000 UNITS/ML 1ML VIAL SQ SCH (23:06)
[2018-08-07 06:19] LABS: ANION GAP 5 MMOL/L (8-16); BLOOD UREA NITROGEN 12 mg/dL (7-18); CALCIUM 7.8 mg/dL (8.5-10.1); CHLORIDE 107 mmol/L (98-107); CO2 28 mmol/L (21-32); CREATININE 0.4 mg/dL (0.55-1.3); GLUCOSE,RANDOM 161 mg/dL (74-106); PHOSPHOROUS 2.6 mg/dL (2.5-4.9); POTASSIUM 3.8 mmol/L (3.5-5.1); SODIUM 140 mmol/L (136-145)
[2018-08-07] MEDS: INSULIN SLIDING SCALE (NOVOLOG) 1 VIAL SQ SCH ×4 (06:42→22:02)
[2018-08-07] MEDS: oxyCODONE HCL 5 MG TABLET PO PRN ×3 (06:43→17:51)
[2018-08-07] MEDS: HEPARIN NA (PORCINE) 5,000 UNITS/ML 1ML VIAL SQ SCH ×3 (06:43→17:40)
[2018-08-07] MEDS ORDERED: PT OWN MED DRAWER 7, Y5N ONE (09:15)
[2018-08-07] MEDS ORDERED: ONDANSETRON 4 MG/2 ML VIAL IVPUSH PRN (09:38)
[2018-08-07] MEDS ORDERED: ACETAMINOPHEN 325 MG TABLET (FP) PO PRN (09:38)
[2018-08-07] MEDS ORDERED: DOCUSATE NA 100 MG/10 ML UNIT-DOSE CUPS PO PRN (09:38)
[2018-08-07] MEDS ORDERED: METOPROLOL TARTRATE 50 MG TABLET (FP) PO SCH (10:00)
[2018-08-07] MEDS: PANTOPRAZOLE 40 MG TABLET (FP) PO SCH (10:34)
[2018-08-07] MEDS: NAPH,MB-DB/K PH,MBDB POWDER PACKET PO SCH ×2 (10:34→21:51)
[2018-08-07] MEDS: amLODIPine BESYLATE 5 MG TABLET (FP) PO SCH (10:34)
[2018-08-07] MEDS: ASPIRIN COATED 81 MG TABLET.EC PO SCH (10:34)
[2018-08-07] MEDS: EZETIMIBE 10 MG TABLET (FP) PO SCH (10:34)
[2018-08-07] MEDS: BUSPIRONE HCL 10 MG, BUSPIRONE HCL 5 MG PO SCH ×2 (10:35→21:42)
[2018-08-07] MEDS: POLYETHYLENE GLYCOL 3350 119 GM BTL PO SCH (14:03)
[2018-08-07] MEDS ORDERED: BISACODYL 5 MG TABLET.DR (FP) PO PRN (15:13)
--- NOTE | 2018-08-07 15:18 | PN ---
Progress Note (short form) - Note Progress Note: Subjective: no fever or chills. no BM on days . no abd pain. has painin R neck Objective: Vital Signs: Last Vital Signs Temp Pulse Resp BP Pulse Ox 98.9 F 68 18 155/77 98 08/07/18 00:00 08/07/18 09:15 08/07/18 09:15 08/07/18 09:15 08/07/18 08:31 Laboratory Results - last 24 hr 08/06/18 08/06/18 08/07/18 16:58 23:46 05:30 Sodium 140 Potassium 3.8 Chloride 107 Carbon Dioxide 28 Anion Gap 5 L BUN 12 Creatinine 0.4 L Creat Clearance w eGFR 153.58 POC Glucometer 205 147 Random Glucose 161 H Calcium 7.8 L Phosphorus 2.6 08/07/18 08/07/18 06:40 12:51 Sodium Potassium Chloride Carbon Dioxide Anion Gap BUN Creatinine Creat Clearance w eGFR POC Glucometer 174 243 Random Glucose Calcium Phosphorus Physical Exam: NAD , AAOx3 CV: RRR, no MRG Lungs: CTAB Ext: no edema or erythema. Abd: soft, NT, Nd , no BS neuro: strength 5/5 in upper and lower extremities proximally and distally. sensation to light touch NL. reflexes 2+ knee jerk and biceps b/l ASSESSMENT AND PLAN: 78 y/o lady with h/o HTN, HLD, DM 2, Anxiety/Depression, Cervical Spine Stenosis, s/p prior cervical Spine Sx with post-op NSTEMI and R jugular venous laceration, she was admitted for C instrumentation and spinal fusion 1- Cervical instrumentation and spinal fusion. : POD 4 .doing well - pain control - bowel regimen. add dulcolax - cont PT 2- Hoariness: chronic for about 6 months. suspect vocal cord paralysis. not related to current surgery - need full w/u by ENT including laryngioscopy. 3- HTN: cont norvasc and BB. 4- H/o CAD s/p [place] 11/17 . - cont aspirin - cont BB 5- Depression : cont zoloft DVT PX : heparin sq HLOC . need rehab. start dc planning . Visit type - Emergency Visit Emergency Visit: Yes ED Registration Date: 08/03/18 Care time: The patient presented to the Emergency Department on the above date and was hospitalized for further evaluation of their emergent condition. - New Patient This patient is new to me today: No - Critical Care Critical Care patient: No
--- NOTE | 2018-08-07 18:16 | PN ---
Progress Note (short form) - Note Progress Note: 78F s/p JOSE anterior cervical spine, C3-T3 posterior instrumented spinal fusion POD #0. -DVT PPx: - Mechanical: GREG's, SCD's. - Chemical: ASA 81mg PO qD; no heparin or fragmin/lovenox. -Incentive spirometry q15min. -Elevate HOB 30-45 degrees. -Soft cervical collar. -PT/OT/Rehab, OOB. -WBAT B/L LE. -q4h B/L UE & LE NV checks. -Diabetic diet. -Care per medical hospitalist team. -Discharge planning: f/u 7-[facility] [place] [facility]; call for appointment; . -Will follow. Gustavo Velasco MD (Orthopaedic Surgery).
[2018-08-07] MEDS: DOCUSATE NA 100 MG/10 ML UNIT-DOSE CUPS PO SCH (21:41)
[2018-08-07] MEDS: SERTRALINE HCL 50 MG TABLET (FP) PO SCH (21:42)
[2018-08-07] MEDS: SENNOSIDES 8.8 MG/5 ML BULK BOTTLE PO SCH (21:43)
[2018-08-08] MEDS: oxyCODONE HCL 5 MG TABLET PO PRN ×4 (01:02→20:56)
[2018-08-08] MEDS: INSULIN SLIDING SCALE (NOVOLOG) 1 VIAL SQ SCH ×4 (06:05→21:05)
[2018-08-08] MEDS: PANTOPRAZOLE 40 MG TABLET (FP) PO SCH (09:52)
[2018-08-08] MEDS: amLODIPine BESYLATE 5 MG TABLET (FP) PO SCH (09:52)
[2018-08-08] MEDS: ASPIRIN COATED 81 MG TABLET.EC PO SCH (09:52)
[2018-08-08] MEDS: BUSPIRONE HCL 10 MG, BUSPIRONE HCL 5 MG PO SCH ×2 (09:53→21:02)
[2018-08-08] MEDS: EZETIMIBE 10 MG TABLET (FP) PO SCH (09:55)
[2018-08-08] MEDS: POLYETHYLENE GLYCOL 3350 119 GM BTL PO SCH (09:59)
[2018-08-08] MEDS: NAPH,MB-DB/K PH,MBDB POWDER PACKET PO SCH (10:00)
[2018-08-08] MEDS: DOCUSATE NA 100 MG/10 ML UNIT-DOSE CUPS PO SCH ×2 (10:03→21:02)
--- NOTE | 2018-08-08 10:59 | PN ---
Progress Note, [employer] - Note Progress Note: Selected Entries 08/07/18 08/07/18 08/07/18 00:00 09:59 16:16 Breakfast 50% Diet Tolerated Supper Temperature 98.9 F 99.1 F 08/07/18 08/07/18 08/08/18 19:17 23:52 06:38 Breakfast Diet Tolerated Supper 25% Temperature 97.5 F L 98.0 F 98.0 F 08/08/18 08/08/18 10:15 10:30 Breakfast 25% Diet Tolerated Fair Supper Temperature 98.3 F Laboratory Tests 08/04/18 08/05/18 08/06/18 05:30 05:30 05:30 WBC 12.2 H 10.9 H 9.4 Reviewed MBS with pt/staff. On chopped/thin liquids. Limited appetite. Encourage Glucerna b/n meals.
[2018-08-08] MEDS ORDERED: INSULIN (NOVOLOG) ASPART 100 UNITS/ML 10ML VIAL ONE (11:07)
--- NOTE | 2018-08-08 13:11 | PN ---
Physical Exam: SUBJECTIVE: Patient seen and examined this AM. No acute overnight events as per nursing. Continues to have 6/10 pain over wound site however feels her pain is controlled and improving. Passing flatus. OOB to chair. No difficulty with urination. Tolerating diet. Denies any numbness, tingling, weakness in extremities. Denies any chest pain, SOB, fevers, chills. OBJECTIVE: Vital Signs Period Temp Pulse Resp BP Sys/Beckwith Pulse Ox Last 24 Hr 97.5 F-99.1 F 83-101 18-20 119-149/65-79 96-97 GENERAL: The patient is awake, alert, and fully oriented, in no acute distress. HEAD: NCAT EYES: PERRL, EOMI ENT: moist mucous membranes. NECK: Wearing soft collar. Surgical bandage overlying Posterior wound site, no active bleeding/discharge, no surrounding erythema LUNGS: Clear to auscultation bilaterally, no wheezes, no crackles HEART: Regular rate and rhythm, S1, S2 without murmur ABDOMEN: Soft, nontender, nondistended, + bowel sounds, no guarding EXTREMITIES: No edema. NEUROLOGICAL: Cranial nerves II through XII grossly intact. Hoarse speech ( Chronic). Muscle Strength symmetrical in all extremities. Gross Sensation intact throughout. PSYCH: Normal mood, normal affect. SKIN: Warm, dry Laboratory Results - last 24 hr 08/07/18 08/07/18 08/08/18 17:22 22:01 06:04 POC Glucometer 200 226 175 08/08/18 11:03 POC Glucometer 180 Active Medications Acetaminophen (Tylenol -) 650 mg PO Q6H PRN PRN Reason: PAIN LEVEL 1 - 3 Amlodipine Besylate (Norvasc -) 5 mg PO DAILY [facility] Last Admin: 08/08/18 09:52 Dose: 5 mg Aspirin (Ecotrin -) 81 mg PO DAILY [facility] Last Admin: 08/08/18 09:52 Dose: 81 mg Bisacodyl (Dulcolax -) 5 mg PO DAILY PRN PRN Reason: CONSTIPATION Last Admin: 08/08/18 09:59 Dose: 5 mg Buspirone HCl 10 mg/ Buspirone (HCl 5 mg) 15 mg PO BID [facility] Last Admin: 08/08/18 09:53 Dose: 15 mg Docusate Sodium (Colace Liquid -) 100 mg PO BID [facility] Last Admin: 08/08/18 10:03 Dose: Not Given Ezetimibe (Zetia -) 10 mg PO DAILY [facility] Last Admin: 08/08/18 09:55 Dose: 10 mg Insulin Aspart (Novolog Vial Sliding Scale -) 1 vial SQ ACHS [facility]; Protocol Last Admin: 08/08/18 11:08 Dose: 2 units Metoprolol Succinate (Toprol Xl -) 50 mg PO DAILY [facility] Ondansetron HCl (Zofran Injection) 4 mg IVPUSH Q6H PRN PRN Reason: NAUSEA AND/OR VOMITING Oxycodone HCl (Roxicodone -) 5 mg PO Q4H PRN PRN Reason: PAIN LEVEL 4 - 6 Last Admin: 08/08/18 09:52 Dose: 5 mg Pantoprazole Sodium (Protonix -) 40 mg PO DAILY [facility] Last Admin: 08/08/18 09:52 Dose: 40 mg Polyethylene Glycol (Miralax (For Daily Use) -) 17 gm PO DAILY [facility] Last Admin: 08/08/18 09:59 Dose: 17 gm Potassium Phos/Sodium Phos (Phos-Nak Packet -) 1 packet PO BID [facility] Stop: 08/08/18 21:59 Last Admin: 08/08/18 10:00 Dose: 1 packet Senna (Senna Oral Solution -) 8.8 mg PO [facility] Last Admin: 08/07/18 21:43 Dose: 8.8 mg Sertraline HCl (Zoloft -) 75 mg PO [facility] Last Admin: 08/07/18 21:42 Dose: 75 mg ASSESSMENT/PLAN: 77 y/o F with PMHx of HTN, HLD, NIDDM, cervical spine stenosis and cervical rediculopathy s/p cervical surgery (prior hospitalization), now s/p JOSE anterior cervical spine, C3-T3 posterior instrumented spinal fusion #S/P JOSE anterior cervical spine, C3-T3 posterior instrumented spinal fusion -Pain control with Tylenol and oxycodone -Continue bowel regimen via dulcolax, colace, miralax, senna -OOB as tolerated -Incentive spirometry -Maintain Soft Cervical collar -Continue to monitor for airway compromise -Physical therapy -D/C Insturctions for wound care, activity, pain control as per surgery #Diabetes -BGMs ISS ACHS -Hold oral hypoglycemics #HTN -Continue home dose Amlodipine, Metoprolol Succinate #Hoarseness -Patient family at bedside mentions she will follow up with her own ENT physician outpatient for further management #HLD -Continue home dose Ezetimibe #Anxiety/Depression -Continue home dose Sertraline, Buspirone #FEN -PO fluids -Lytes wnl -Chopped diet, thin liquid #PPx -DVT: SCD's, Heparin TID -GI: PPI Dispo: D/C Pending Rehab placement Visit type - Emergency Visit Emergency Visit: No - New Patient This patient is new to me today: Yes Date on this admission: 08/08/18 - Critical Care Critical Care patient: No
--- NOTE | 2018-08-08 13:17 | PN ---
Teaching Attending Note Name of Resident: Roxann Stoll ATTENDING PHYSICIAN STATEMENT I saw and evaluated the patient. I reviewed the resident's note and discussed the case with the resident. I agree with the resident's findings and plan as documented. SUBJECTIVE: pain is controlled. no Bm, no bad pain . no weakness, numbness or tingling OBJECTIVE: NAD , AAOx3 CV: RRR, no MRG Lungs: CTAB Ext: no edema or erythema. Neuro: strength 5/5 in upper and lower extremities proximally and distally. sensation to light touch NL. reflexes 2+ knee jerk and biceps b/l ASSESSMENT AND PLAN: 78 y/o lady with h/o HTN, HLD, DM 2, Anxiety/Depression, Cervical Spine Stenosis, s/p prior cervical Spine Sx with post-op NSTEMI and R jugular venous laceration, she was admitted for C instrumentation and spinal fusion 1- Cervical instrumentation and spinal fusion: POD 5. doing well - pain control - bowel regimen - cont PT 2- Hoariness: chronic for about 6 months. per , she was seen by ENT just before her sx. she will cont to follow up with him. 3- HTN: cont norvasc and BB. 4- H/o CAD s/p [place] 11/17 . - cont aspirin - cont BB 5- Depression : cont zoloft DVT PX: heparin sq dispo : ready for dc to rehab whenever a bed is available
[2018-08-08 16:15] VITALS: BMI 26.9
[2018-08-08] MEDS: SERTRALINE HCL 50 MG TABLET (FP) PO SCH (21:01)
[2018-08-08] MEDS: SENNOSIDES 8.8 MG/5 ML BULK BOTTLE PO SCH (21:02)
[2018-08-09] MEDS: oxyCODONE HCL 5 MG TABLET PO PRN ×2 (01:08→14:23)
[2018-08-09] MEDS: INSULIN SLIDING SCALE (NOVOLOG) 1 VIAL SQ SCH ×2 (06:10→12:42)
[2018-08-09] MEDS: amLODIPine BESYLATE 5 MG TABLET (FP) PO SCH (10:03)
[2018-08-09] MEDS: ASPIRIN COATED 81 MG TABLET.EC PO SCH (10:03)
[2018-08-09] MEDS: PANTOPRAZOLE 40 MG TABLET (FP) PO SCH (10:03)
[2018-08-09] MEDS: DOCUSATE NA 100 MG/10 ML UNIT-DOSE CUPS PO SCH (10:04)
[2018-08-09] MEDS: POLYETHYLENE GLYCOL 3350 119 GM BTL PO SCH (10:04)
[2018-08-09] MEDS: BUSPIRONE HCL 10 MG, BUSPIRONE HCL 5 MG PO SCH (10:05)
[2018-08-09] MEDS: EZETIMIBE 10 MG TABLET (FP) PO SCH (10:05)
[2018-08-09 11:29] VITALS: BP 135/71; PULSE 72; TEMP 98.5
--- NOTE | 2018-08-09 12:11 | PN ---
Progress Note, [employer] - Note Progress Note: Selected Entries 08/07/18 08/07/18 08/07/18 00:00 09:59 16:16 Breakfast 50% Diet Tolerated Supper Temperature 98.9 F 99.1 F 08/07/18 08/07/18 08/08/18 19:17 23:52 06:38 Breakfast Diet Tolerated Supper 25% Temperature 97.5 F L 98.0 F 98.0 F 08/08/18 08/08/18 10:15 10:30 Breakfast 25% Diet Tolerated Fair Supper Temperature 98.3 F Laboratory Tests 08/04/18 08/05/18 08/06/18 05:30 05:30 05:30 WBC 12.2 H 10.9 H 9.4 Selected Entries 08/09/18 08/09/18 08/09/18 06:42 10:00 11:29 Breakfast 50% Diet Tolerated Well Temperature 98.3 F 98.5 F Laboratory Tests 08/06/18 05:30 WBC 9.4 Reviewed MBS with staff. On chopped/thin liquids. Encourage Glucerna b/n meals.
--- NOTE | 2018-08-09 14:51 | PN ---
Teaching Attending Note Name of Resident: Roxann Stoll ATTENDING PHYSICIAN STATEMENT I saw and evaluated the patient. I reviewed the resident's note and discussed the case with the resident. I agree with the resident's findings and plan as documented. SUBJECTIVE: No fever or chills. No OSCAR . has neck pain. moved her bowels. OBJECTIVE: NAD , AAOx3 CV: RRR, no MRG Lungs: CTAB Ext: no edema or erythema. Neuro: strength 5/5 in upper and lower extremities proximally and distally. sensation to light touch NL. reflexes 2+ knee jerk and biceps b/l ASSESSMENT AND PLAN: 78 y/o lady with h/o HTN, HLD, DM 2, Anxiety/Depression, Cervical Spine Stenosis, s/p prior cervical Spine Sx with post-op NSTEMI and R jugular venous laceration, she was admitted for C instrumentation and spinal fusion 1- Cervical instrumentation and spinal fusion: POD 6. doing well - pain control with tylenol and oxy - bowel regimen - cont PT 2- Hoariness: chronic for about 6 months. per , she was seen by ENT just before her sx. she will cont to follow up with him. 3- HTN: cont norvasc and BB. 4- H/o CAD s/p [place] 11/17 . - cont aspirin - cont BB 5- Depression: cont zoloft Dispo: case was d/w Dr. Velasco. Ok to dc today. d/w family and patient. Dc to rehab today. dressing to remain intact until recommended f/u with Sx on 08/18.
--- NOTE | 2018-08-09 15:14 | DS ---
Physical Exam: SUBJECTIVE: Patient seen and examined this AM. No acute overnight events as per nursing. Pain continues to improve. Tolerating diet. Denies any numbness, tingling, weakness in extremities. Denies any chest pain, SOB, fevers, chills. OBJECTIVE: Vital Signs Period Temp Pulse Resp BP Sys/Beckwith Pulse Ox Last 24 Hr 98.3 F-98.5 F 72-78 20-20 132-135/69-72 96-96 PHYSICAL EXAM GENERAL: The patient is awake, alert, and fully oriented, in no acute distress. HEAD: NCAT EYES: PERRL, EOMI ENT: moist mucous membranes. NECK: Wearing soft collar. Surgical bandage overlying Posterior wound site, no active bleeding/discharge, no surrounding erythema LUNGS: Clear to auscultation bilaterally, no wheezes, no crackles HEART: Regular rate and rhythm, S1, S2 without murmur ABDOMEN: Soft, nontender, nondistended, + bowel sounds, no guarding EXTREMITIES: No edema. NEUROLOGICAL: Cranial nerves II through XII grossly intact. Hoarse speech ( Chronic). Muscle Strength symmetrical in all extremities. Gross Sensation intact throughout. PSYCH: Normal mood, normal affect. SKIN: Warm, dry LABS Laboratory Results - last 24 hr 08/08/18 08/08/18 08/08/18 16:28 17:31 21:05 POC Glucometer 287 222 261 08/09/18 08/09/18 05:46 12:11 POC Glucometer [phone] HOSPITAL COURSE: Date of Admission:08/03/18 Date of Discharge: 08/09/18 77 y/o F with PMHx of HTN, HLD, NIDDM, cervical spine stenosis and cervical rediculopathy s/p prior cervical surgery, was admitted s/p JOSE anterior cervical spine, C3-T3 posterior instrumented spinal fusion. Patients pain was controlled and continued to decrease. She was able to pass flatus, urinate without difficulty and ambulate. She maintained cervical collar use and worked with physical therapy throughout her stay. Patient continued her home meds. Patient was discharged to rehab with strict instructions on wound care, dressing changes, activity, and physician follow up. Minutes to complete discharge: 36 Discharge Summary Reason For Visit: CERVICAL DISC DISORDER Current Active Problems DVT prophylaxis (Acute) HLD (hyperlipidemia) (Acute) S/P cervical spinal fusion (Acute) Condition: Stable - Instructions Diet, Activity, Other Instructions: You presented to the hospital for Cervical spine disease. Maintain the soft collar to support your neck. Elevate the head of bed to 30-45 degrees. Medication Changes: 1. Continue to use Tylenol as needed for pain, with caution not to use greater than 4 grams daily. you can take oxycodone as needed Follow up with the following physicians: 1. PCP in one week 2. [facility] [place] office; call for appointment --( make appointment for 08/18) 3. Please schedule an appointment with your ENT to further manage the vocal hoarseness Dressing instructions: Keep Dressing intact and dry until next week when you see the surgeon You are being discharged to a rehab facility to strengthen your muscles. Continue to work with Physical therapy and bare weight as tolerated. Please continue to monitor your diet as you need to intake less sugar and drink plenty of fluids. Continue all your other medications as prescribed Please return to the ER if you have any signs or symptoms of chest pain, shortness of breath, uncontrollable fever, chills, nausea, vomiting, numbness, tingling, or weakness in any part of your body, changes in vision, or slurred speech. Please return to the ER if symptoms persist, worsen, or new symptoms arise. Referrals: Gustavo Velasco MD [Staff Physician] - 08/18/18 Disposition: INTERMEDIATE FACILITY - Home Medications Comprehensive Discharge Medication List: Ambulatory Orders Repaglinide [Prandin -] 0.5 mg PO TIDAC tablet 11/25/17 Amlodipine Besylate [Norvasc -] 5 mg PO DAILY 08/02/18 Atorvastatin Ca [Lipitor] 80 mg PO HS 08/02/18 Pantoprazole Sodium 40 mg PO DAILY 08/02/18 Sertraline HCl [Zoloft -] 75 mg PO DAILY 08/02/18 Acetaminophen [Tylenol .Regular Strength -] 650 mg PO Q6H PRN tablet 08/08/18 Metoprolol Succinate [Toprol Xl] 50 mg PO DAILY 08/08/18 Aspirin [Ecotrin] 81 mg PO DAILY #30 tablet. 08/09/18 Buspirone HCl [Buspar -] 15 mg PO BID #60 tablet 08/09/18 Ezetimibe [Zetia -] 10 mg PO DAILY #30 tablet 08/09/18 Oxycodone HCl 5 mg PO Q8H PRN #15 tablet MDD 15 mg 08/09/18 Polyethylene Glycol 3350 [Miralax (For Daily Use) -] 17 gm PO DAILY PRN #1 bottle 08/09/18 Sennosides [Senna] 8.8 mg PO DAILY #30 ml 08/09/18 This patient is new to me today: No Emergency Visit: No Critical Care patient: No - Discharge Referral Referred to [facility] No
== END 2018-08-09 17:20 | disposition home or self-care (01) | DRG 455 ==
LOC: JSAMEDAYSX 06:30 → JICU 17:44 → J8W 08-07 09:45
PROVIDERS: ADMIT Orthopaedic Surgery Orthopaedic Surgery of the Spine; ATTEND Internal Medicine
PROC: 0RG2071 Fusion of 2 or more Cervical Vertebral Joints with Autologous Tissue Substitute, Posterior Approach, Posterior Column, Open Approach (ICD-10-PCS; 2018-08-03)
PROC: 0WJ60ZZ Inspection of Neck, Open Approach (ICD-10-PCS; 2018-08-03)
PROC: 0RG60AJ Fusion of Thoracic Vertebral Joint with Interbody Fusion Device, Posterior Approach, Anterior Column, Open Approach (ICD-10-PCS; 2018-08-03)
PROC: 0RG6071 Fusion of Thoracic Vertebral Joint with Autologous Tissue Substitute, Posterior Approach, Posterior Column, Open Approach (ICD-10-PCS; 2018-08-03)
PROC: 0RG40AJ Fusion of Cervicothoracic Vertebral Joint with Interbody Fusion Device, Posterior Approach, Anterior Column, Open Approach (ICD-10-PCS; 2018-08-03)
PROC: 0RG4071 Fusion of Cervicothoracic Vertebral Joint with Autologous Tissue Substitute, Posterior Approach, Posterior Column, Open Approach (ICD-10-PCS; 2018-08-03)
PROC: B01BZZZ Fluoroscopy of Spinal Cord (ICD-10-PCS; 2018-08-03)
PROC: 4A1004G Monitoring of Central Nervous Electrical Activity, Intraoperative, Open Approach (ICD-10-PCS; 2018-08-03)
PROC: 0RP104Z Removal of Internal Fixation Device from Cervical Vertebral Joint, Open Approach (ICD-10-PCS; principal; 2018-08-03 08:00)
PROC: 0RG20AJ Fusion of 2 or more Cervical Vertebral Joints with Interbody Fusion Device, Posterior Approach, Anterior Column, Open Approach (ICD-10-PCS; 2018-08-03 08:00)
DX: T84.296A Other mechanical complication of internal fixation device of vertebrae, initial encounter (principal); I10 Essential (primary) hypertension; E78.5 Hyperlipidemia, unspecified; E11.9 Type 2 diabetes mellitus without complications; I25.10 Atherosclerotic heart disease of native coronary artery without angina pectoris; Y83.9 Surgical procedure, unspecified as the cause of abnormal reaction of the patient, or of later complication, without mention of misadventure at the time of the procedure; F41.8 Other specified anxiety disorders; E83.42 Hypomagnesemia; J38.00 Paralysis of vocal cords and larynx, unspecified
CPT/HCPCS: 36415; 74230-TC-FY; 76000-TC-FY; 80048; 82962; 83735; 84100; 85027; 86850; 86900; 86901; 88300-TC; 92611-GN; 97116-GP; 97162-GP; J0131; J1100; J1644